=== PATIENT | female | born 1995 | race Caucasian/White ===

== ENCOUNTER 2020-07-10 11:04 | Outpatient (REF) | payer OTHER, SELFPAY | END 2020-07-10 11:05 | disposition home or self-care (01) | LOC: HO.LAB 11:04 | PROVIDERS: Visit Provider Internal Medicine | DX: Z20.828 Contact with and (suspected) exposure to other viral communicable diseases (principal) | CPT/HCPCS: 36415; 87635 ==

== ENCOUNTER 2020-09-24 07:55 | Outpatient (REF) | payer OTHER, SELFPAY | END 2020-09-24 07:56 | disposition home or self-care (01) | LOC: HO.LAB 07:55 | PROVIDERS: Visit Provider Internal Medicine | DX: Z20.828 Contact with and (suspected) exposure to other viral communicable diseases (principal) | CPT/HCPCS: C9803; U0003 ==

== ENCOUNTER 2021-01-22 10:15 | Emergency (ER) | payer OTHER, SELFPAY ==
--- NOTE | ~2021-01-22 | XR_ITS ---
EXAMINATION: XR CHEST CLINICAL INFORMATION: Cough, fever COMPARISON: Chest radiographs 10/11/2019, 10/28/2018 TECHNIQUE: Frontal view of the chest was obtained. FINDINGS: The lungs are clear. There is no airspace consolidation or groundglass opacity. Bronchovascular markings right infrahilar region are stable. The heart is normal in size. The vascularity is normal. The costophrenic sulci are clear. The mediastinal contours and bony structures are unremarkable. XR/XR chest 1V IMPRESSION: Unremarkable examination.
[2021-01-22 10:43] VITALS: BP 143/91; PULSE 94; RESP 20; TEMP 37.2; O2SAT 100; BMI 31.0
--- NOTE | 2021-01-22 13:18 | ED_ITS ---
HPI - General Adult General Chief complaint: General Medical <YU Marin - Last Filed: 01/22/21 14:14> Stated complaint: ASTHMA <YU Marin - Last Filed: 01/22/21 14:14> Time Seen by Provider: 01/22/21 12:15 <YU Marin - Last Filed: 01/22/21 14:14> Source: patient <YU Marin - Last Filed: 01/22/21 14:14> Mode of arrival: ambulatory <YU Marin - Last Filed: 01/22/21 14:14> Limitations: no limitations <YU Marin - Last Filed: 01/22/21 14:14> History of Present Illness HPI narrative: 25 y/o female with history of asthma who presents to the ED from home reporting dry cough, SOB, diarrhea, nasal congestion and headaches for the last 3 days. She has been using her albuterol inhaler with little improvement. She ran out of her nebulizer treatments. She denies chest pain or difficultly breathing. No fevers. No known COVID exposure but she works in a [employer]. <YU Marin - Last Filed: 01/22/21 14:14> MD complaint: COVID symptoms <YU Marin - Last Filed: 01/22/21 14:14> Onset (ago): day(s) (3) <YU Marin - Last Filed: 01/22/21 14:14> Location: head, chest and abdomen <YU Marin - Last Filed: 01/22/21 14:14> Severity: mild <YU Marin - Last Filed: 01/22/21 14:14> Quality: aching <YU Marin - Last Filed: 01/22/21 14:14> Pain Consistency: intermittent <YU Marin - Last Filed: 01/22/21 14:14> Relieving factors: rest <YU Marin - Last Filed: 01/22/21 14:14> Exacerbating factors: movement <YU Marin - Last Filed: 01/22/21 14:14> Associated symptoms: cough, headaches, loss of appetite, malaise and shortness of breath <YU Marin - Last Filed: 01/22/21 14:14> Related Data Home medications: Previous Rx's Medication Instructions Recorded albuterol sulfate 5 mg INHALATION Q6H PRN #30 ea 01/22/21 prednisone 40 mg PO DAILY #10 tab 01/22/21 <YU Marin - Last Filed: 01/22/21 14:14> Allergies/adverse reactions: Allergies Allergy/AdvReac Type Severity Reaction Status Date / Time No Known Allergies Allergy Unverified 06/21/20 16:43 <YU Marin - Last Filed: 01/22/21 14:14> Review of Systems Review of Systems: Constitutional: No Fever, + Chills ENT/Mouth: + sore throat, + Rhinorrhea, No Swallowing Difficulty Cardiovascular: No Chest Pain, + SOB, No Orthopnea, No Edema Respiratory: + Cough, No Sputum, No Wheezing, No dyspnea Gastrointestinal: +Nausea, No Vomiting, + Diarrhea, No abdominal Pain Genitourinary: No Dysuria, No Urinary Frequency, No Hematuria Musculoskeletal: No joint pain, + Myalgias Skin: No Skin Lesions, No rash Neuro: No Weakness, No Numbness, No Dizziness, + Headache Psych: + Anxiety/Panic, No Depression Heme/Lymph: No Bruising, No Lymphadenopathy <YU Marin - Last Filed: 01/22/21 14:14> [facility] Past Medical History Attestation statement: The following information was validated with the patient. <YU Marin - Last Filed: 01/22/21 14:14> Medical History: Medical History Asthma Hypothyroid <YU Marin - Last Filed: 01/22/21 14:14> Social History Social History: Social History Advance Directives: No Advance Directives Information Provided: No <YU Marin Last Filed: 01/22/21 14:14> Physical Exam Vital Signs: Vital Signs: Last Vital Signs Temp 99.0 F 01/22/21 10:43 Pulse 94 01/22/21 10:43 Resp 20 01/22/21 10:43 BP 143/91 H 01/22/21 10:43 Pulse Ox 100 01/22/21 10:43 Body Mass Index 31.0 Appearance: Alert. Oriented X3. No acute distress. Eyes: normal external inspection. ENT: Pharynx normal. Neck: Normal inspection. Neck supple. CVS: Normal heart rate and rhythm. Pulses normal. Respiratory: No respiratory distress. Breath sounds with end expiratory wheeze in right middle lung field as LLL. Speaking in full sentences, no accessory muscle use. Abdomen: Soft and nontender. +BS x4 Skin: Skin warm and dry. Normal skin color. Normal skin turgor. No rashes. Extremities: No lower extremity edema. Neuro: Oriented X 3. Nonfocal. Steady gait. <YU Marin - Last Filed: 01/22/21 14:14> Vital Signs: Last Vital Signs Temp 99.0 F 01/22/21 10:43 Pulse 94 01/22/21 10:43 Resp 20 01/22/21 10:43 BP 143/91 H 01/22/21 10:43 Pulse Ox 100 01/22/21 10:43 Body Mass Index 31.0 <Wilver Brewer MD - Last Filed: 01/30/21 08:40> Course Course Course Narrative: 25 yo female with history of asthma presents with 3 days of URI symptoms including dry cough, congestion, chills, & intermittent diarrhea. 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 No fevers, SOB, chest pain, WILLS or abd pain. VS are stable and she appears well. Exam w/ mild end expiratory wheezes throughout, speaking in full sentences. Will get Viral PCR and CXR. <YU Reynoso - Last Filed: 01/22/21 14:14> I have reviewed the chart <Wilver Brewer MD - Last Filed: 01/30/21 08:40> Reevaluation(s) Reevaluation #1: CXR negative. Viral PCR + for COVID. Patient counseled on diagnosis and management. Will give Rx for prednisone and albuterol nebs given wheezing on exam. She is no respiratory distress and no hypoxia noted. She is stable for discharge and was given clear instructions for warning signs/symptoms to return to the ED. <YU Marin - Last Filed: 01/22/21 14:14> Medical Decision Making Lab Data Labs: Lab Results 01/22/21 Range/Units 12:48 Coronavirus (PCR) POSITIVE A (Negative) Influenza Type A (PCR) NEGATIVE (Negative) Influenza Type B (PCR) NEGATIVE (Negative) RSV RNA Qual (PCR) NEGATIVE (Negative) <YU Marin - Last Filed: 01/22/21 14:14> Lab Results 01/22/21 Range/Units 12:48 Coronavirus (PCR) POSITIVE A (Negative) Influenza Type A (PCR) NEGATIVE (Negative) Influenza Type B (PCR) NEGATIVE (Negative) RSV RNA Qual (PCR) NEGATIVE (Negative) <Wilver Brewer MD - Last Filed: 01/30/21 08:40> Discharge Plan Discharge Clinical Impression: COVID-19 <YU Marin - Last Filed: 01/22/21 14:14> Patient Disposition: Home, Self-Care <YU Marin - Last Filed: 01/22/21 14:14> Instructions: COVID-19 (Coronavirus Disease 2019) (ED) <YU Marin - Last Filed: 01/22/21 14:14> Additional Instructions: You were found to be COVID-19 POSITIVE today. Your chest x-ray and oxygen levels were normal. Rest. Drink plenty of fluids. Recommend Imodium for diarrhea. Do not go out in public for the next 10 days. Take over the counter cold/flu medications as needed for your symptoms. Take Tylenol and/or Motrin as needed for fevers and body aches. Follow up with your doctor this week. If you shortness of breath worsens , if you develop difficulty breathing or any other concerning symptom come back to the ER for further evaluation. <YU Marin Last Filed: 01/22/21 14:14> Prescriptions: New prednisone 20 mg tablet 40 mg PO DAILY Qty: 10 RF: 0 albuterol sulfate 2.5 mg/0.5 mL solution for nebulization 5 mg inhalation Q6H PRN (Reason: shortness of breath or wheezing) Qty: 30 RF: 0 <YU Marin Last Filed: 01/22/21 14:14> Stand Alone Forms: Work/School Release <YU Marin - Last Filed: 01/22/21 14:14> Interventions: ED Discharge Assessment Last Done: 01/22/21 14:10 <YU Marin - Last Filed: 01/22/21 14:14> Discharge Date/Time: 01/22/21 14:10 <YU Marin - Last Filed: 01/22/21 14:14>
[2021-01-22 13:47] LABS: Influenza A PCR NEGATIVE (Negative); Influenza B PCR NEGATIVE (Negative); Resp Syncy Virus RNA Qual PCR NEGATIVE (Negative); SARS COV2 PCR INHOUSE POSITIVE (Negative)
== END 2021-01-22 14:10 | disposition home or self-care (01) ==
PROVIDERS: Physician Assistant; Emergency Provider Emergency Medicine; PCP Internal Medicine
DX: U07.1 COVID-19 (principal); J45.909 Unspecified asthma, uncomplicated
CPT/HCPCS: 0241U; 36415; 71045; 99283

== ENCOUNTER 2021-08-12 19:21 | Emergency (ER) | payer OTHER, SELFPAY ==
--- NOTE | ~2021-08-12 | XR_ITS ---
EXAMINATION: XR CHEST CLINICAL INFORMATION: Cough with wheezing COMPARISON: 01/22/2021 TECHNIQUE: 2 views of the chest were obtained. FINDINGS: No significant abnormality is noted involving the heart, lungs, mediastinum, bony thorax or soft tissues. XR/XR chest 2V IMPRESSION: Unremarkable examination.
[2021-08-12 19:41] VITALS: BP 147/91; PULSE 101; RESP 21; TEMP 36.3; O2SAT 98; BMI 31.9
--- NOTE | 2021-08-12 23:46 | ED.ASTHMA ---
HPI - Asthma General Chief Complaint: Asthma Stated Complaint: asthma Time Seen by Provider: 08/12/21 22:33 Source: patient Mode of arrival: ambulatory Limitations: no limitations History of Present Illness HPI Narrative: Patient presents to ED for asthma exacerbation. Patient states body aches and chills. 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 Patient states usually around this time she has asthma exacerbation every year. Related Data Previous Rx's Medication Instructions Recorded albuterol sulfate 2.5 mg/0.5 mL 5 mg INHALATION Q6H PRN #30 ea 01/22/21 solution for nebulization prednisone 20 mg tablet 40 mg PO DAILY #10 tab 01/22/21 benzonatate 100 mg capsule 100 mg PO TID PRN 5 Days #15 cap 08/13/21 prednisone 20 mg tablet 60 mg PO DAILY 5 Days #15 tab 08/13/21 Allergies Allergy/AdvReac Type Severity Reaction Status Date / Time No Known Allergies Allergy Verified 08/12/21 19:40 Review of Systems Review of Systems: Yes all other systems are reviewed and are negative Constitutional: Constitutional: Reports as per HPI, Reports no additional constitutional complaints, Reports body ache(s) and Reports chills Eyes: Eyes: Reports as per HPI and Reports no additional eye complaints ENT: Reports system reviewed and no additional complaints, except as documented Cardiovascular: Cardiovascular: Reports as per HPI and Reports no additional cardiovascular complaints Respiratory: Respiratory: Reports as per HPI, Reports no additional respiratory complaints and Reports wheezing Gastrointestinal: Gastrointestinal: Reports as per HPI and Reports no additional gastrointestinal complaints Musculoskeletal: Musculoskeletal: Reports no additional musculoskeletal complaints and Reports as per HPI Neurologic: Reports system reviewed and no additional complaints, except as documented and Reports as per HPI Psychiatric: Psychiatric: Reports no additional psychiatric complaints and Reports as per HPI Allergic/Immunologic: Allergic/Immunologic: Reports wheezing PMFSH Past Medical History Medical History Asthma Hypothyroid Social History Social History Advance Directives: No Advance Directives Information Provided: No Patient : No Physical Exam Vital Signs: Vital Signs: Last Vital Signs Temp 97.3 F 08/12/21 19:41 Pulse 91 08/13/21 00:31 Resp 16 08/13/21 00:19 BP 147/92 H 08/13/21 00:19 Pulse Ox 99 08/13/21 00:19 Body Mass Index 31.9 Const: General: cooperative, healthy appearing, comfortable, no acute distress, well developed, alert, awake and Physically active Orientation/consciousness: patient oriented x3 HENMT: Head: Yes normal to inspection, Yes No palpable skull fracture present, Yes normocephalic, Yes atraumatic, No abrasion, No Trotter's sign, No contusion, No cranial bruits, No hematoma, No laceration, No occipital foramen tenderness, No palpable skull fracture, No raccoon eyes, No scalp lesion, No scalp tenderness, No Temporal artery tenderness present and No periorbital ecchymosis Eyes: General: appearance normal, both eyes and all related structures Neck: Neck: Yes normal visual inspection, Yes full ROM, Yes no lymphadenopathy, Yes no meningeal signs, Yes trachea midline, Yes supple and No tender Chest: Chest palpation & inspection: normal inspection of the chest and normal palpation of entire chest wall Resp: Effort & Inspection: normal respiratory effort and able to speak in complete sentences Auscultation: wheezes expiratory wheezes (mild) Cardio: Jugular venous distension: no JVD Heart sounds: S1 normal heart sound present and S2 normal heart sound present GI: Inspection: Yes normal to inspection and No abdominal wall ecchymosis Palpation (GI): Soft to palpation, not firm, nontender, no guarding and not rigid : General: No CVA tenderness and Yes no CVA tenderness Back/Spine/Pelvis: Back: no CVA tenderness, No CVA tenderness and No back tenderness Skin: General skin exam: no rashes or lesions noted and elasticity normal Neuro: Other: Lower extremity negative for swelling, pitting edema, or calf tenderness. General: patient oriented x3, gait normal, no meningeal signs and CN's II-XI intact bilaterally Cranial nerves: Yes CN's II-XII intact bilaterally Extrem: General: Yes normal to inspection and Yes full ROM Psych: Appearance: grossly normal, well kempt and not disheveled Course Course Course Narrative: Patient have COVID swab and chest x-ray ordered. Reevaluation(s) Reevaluation #1: COVID swab RSV and influenza negative. Chest x-ray normal. Patient feels better after albuterol prednisone treatment. Patient to be discharged with steriods. Time: 01:24 MDM - Asthma MDM Narrative Medical decision making narrative: Asthma exacerbation clear urine Lab Data Labs: Lab Results 08/13/21 Range/Units 00:20 Influenza Type A (PCR) NEGATIVE (Negative) Influenza Type B (PCR) NEGATIVE (Negative) RSV RNA Qual (PCR) NEGATIVE (Negative) SARS-CoV-2 RNA (RT-PCR) NEGATIVE (Negative) Discharge Plan Discharge Clinical Impression: Asthma with acute exacerbation Patient Disposition: Home, Self-Care Instructions: Asthma (ED) Additional Instructions: Chest x-ray came back negative for pneumonia. The RSV, influenza, and COVID swab came back negative. Return to the ED for any chest pain, shortness of breath, swelling of lower extremities, calf. Mom including fingers, weakness, intractable fever, chills, chest pain inspiration, or any other concerning symptoms. Prescriptions: New prednisone 20 mg tablet 60 mg PO DAILY 5 Days Qty: 15 RF: 0 benzonatate 100 mg capsule 100 mg PO TID PRN (Reason: cough) 5 Days Qty: 15 RF: 0 No Action prednisone 20 mg tablet 40 mg PO DAILY Qty: 10 RF: 0 albuterol sulfate 2.5 mg/0.5 mL solution for nebulization 5 mg inhalation Q6H PRN (Reason: shortness of breath or wheezing) Qty: 30 RF: 0 Stand Alone Forms: Work/School Release Print Language: Amharic
[2021-08-13 00:19] VITALS: BP 147/92; PULSE 88; RESP 16; O2SAT 99
[2021-08-13] MEDS: predniSONE 20 MG TABLET 60 MG PO (00:25)
[2021-08-13 00:31] VITALS: PULSE 91; O2SAT 98
[2021-08-13] MEDS: Albuterol/Iprat 2.5/0.5MG 3 ML AMPUL.NEB INHALE (00:31)
[2021-08-13 01:03] LABS: Influenza A PCR NEGATIVE (Negative); Influenza B PCR NEGATIVE (Negative); Resp Syncy Virus RNA Qual PCR NEGATIVE (Negative); SARS COV2 PCR INHOUSE NEGATIVE (Negative)
--- NOTE | 2021-08-13 01:53 | PC.NURSE ---
Pt alert and oriented x4, calm and cooperative. Pt denies pain. Pt states SOB has improved. Wheezing improved. pt tolerated duoneb treatment well. No IV in place. Vitals stable. Pt ambulated out to private car, steady on her feet.
[2021-08-13 01:55] VITALS: BP 126/74; PULSE 89; RESP 18; TEMP 37; O2SAT 95
== END 2021-08-13 01:56 | disposition home or self-care (01) ==
PROVIDERS: Physician Assistant; Emergency Provider Emergency Medicine
DX: J45.901 Unspecified asthma with (acute) exacerbation (principal); Z20.822 Contact with and (suspected) exposure to COVID-19; Z79.899 Other long term (current) drug therapy
CPT/HCPCS: 0241U; 36415; 71046; 94640; 99283

== ENCOUNTER 2021-10-03 08:02 | Emergency (ER) | payer OTHER, SELFPAY ==
--- NOTE | ~2021-10-03 | XR_ITS ---
EXAMINATION: XR CHEST CLINICAL INFORMATION: Shortness of breath COMPARISON: August 12, 2021 TECHNIQUE: 2 views of the chest were obtained. FINDINGS: No significant abnormality is noted involving the heart, lungs, mediastinum, bony thorax or soft tissues. XR/XR chest 2V IMPRESSION: No acute disease.
--- NOTE | 2021-10-03 08:30 | ED.URI ---
HPI - URI/Sore Throat General Chief Complaint: Upper Respiratory Symptoms Stated Complaint: body aches diff breathing Time Seen by Provider: 10/03/21 08:05 Source: patient Mode of arrival: ambulatory Limitations: no limitations History of Present Illness HPI Narrative: unvaccinated COVID back in December elicited complaint: cough and rhinorrhea Pertinent past history: asthma Onset (ago): day(s) (3) Consistency: constant Severity: moderate Description of mucous: clear Able to tolerate fluids by mouth: Yes Exacerbating factors: other (cough) Relieving factors: nothing Context: sick contacts (exposed to COVID) Associated symptoms: chills, myalgias, rhinorrhea, cough and shortness of breath Treatments prior to arrival: none Related Data Previous Rx's Medication Instructions Recorded albuterol sulfate 2.5 mg/0.5 mL 5 mg INHALATION Q6H PRN #30 ea 01/22/21 solution for nebulization prednisone 20 mg tablet 40 mg PO DAILY #10 tab 01/22/21 benzonatate 100 mg capsule 100 mg PO TID PRN 5 Days #15 cap 08/13/21 prednisone 20 mg tablet 60 mg PO DAILY 5 Days #15 tab 08/13/21 albuterol sulfate 2.5 mg (3 mL) INHALATION Q4-6H PRN 10/03/21 #75 ml dexamethasone 6 mg tablet 6 mg PO DAILY 7 Days #7 tab 10/03/21 Allergies Allergy/AdvReac Type Severity Reaction Status Date / Time No Known Allergies Allergy Verified 08/12/21 19:40 Review of Systems Review of Systems: Constitutional : No Fever, pos Chills ENT/Mouth : No Hoarseness, No sore throat, No Rhinorrhea Eyes: No Redness, No Discharge, No Vision Changes Cardiovascular : No Chest Pain, positive SOB, no Dyspnea on Exertion, No Edema Respiratory : positive Cough, No Sputum, positive Wheezing, Gastrointestinal : No Nausea, No Vomiting, No Diarrhea, No abdominal Pain Genitourinary : No Dysuria, No Hematuria Musculoskeletal : No joint pain, No Myalgias Skin : No rash Neuro : No Weakness, No Numbness, No Headache Psych : No anxiety, depression Heme/Lymph: No Bruising, No Bleeding Endocrine : No Polyuria, No Polydipsia All other systems reviewed and are negative PMFSH Past Medical History Attestation statement: The following information was validated with the patient. Medical History Asthma Hypothyroid Social History Social History (Updated 10/03/21 @ 08:52 by Ama Owens DO) Patient Tobacco Use Status: Current everyday Tobacco user Advance Directives: No Advance Directives Information Provided: No Patient : No Physical Exam Vital Signs: Vital Signs: Last Vital Signs Temp 98 F 10/03/21 08:51 Pulse 86 10/03/21 08:55 Resp 20 10/03/21 08:55 Pulse Ox 99 10/03/21 08:51 BMI result Body Mass Index 30.9 Appearance: Alert. Oriented X3. No acute distress. Eyes: Pupils equal, round and reactive to light. ENT: Pharynx normal. Neck: Normal inspection. Neck supple. CVS: Normal heart rate and rhythm. Pulses normal. Respiratory: No respiratory distress. Breath sounds faint end exp wheezes noted bilaterally Abdomen: Soft and nontender. Skin: Skin warm and dry. Normal skin color. Normal skin turgor. Extremities: No lower extremity edema. No calf ttp Neuro: Oriented X 3. No motor deficit. No sensory deficit. Course Course Course Narrative: no hypoxia - stable for DC 99% on RA after neb given referral form for [facility] MDM - URI/Sore Throat MDM Narrative Medical decision making narrative: 26 yo female with hx of asthma, unvaccinated COVID back in December sick for a few days - ran out of her albuterol liquid. No resp distress. She was exposed to COVID at this time xray and covid swab ordered - 5mg neb ordered, PO prednisone ordered. Dispo per results and findings. Lab Data Labs: Lab Results 10/03/21 Range/Units 08:53 COVID-19 (LEXII) Positive A (Negative) COVID-19 Clin Com See Note Discharge Plan Discharge Clinical Impression: COVID-19 Patient Disposition: Home, Self-Care Instructions: COVID-19 (Coronavirus Disease 2019) (ED) Additional Instructions: return to ED for any worsening symptoms or concerns if you are so short of breath and cannot walk to your bathroom please return please email the [facility] Prescriptions: New albuterol sulfate 2.5 mg /3 mL (0.083 %) solution for nebulization 2.5 mg inhalation Q4-6H PRN (Reason: bronchospasm) Qty: 75 RF: 0 dexamethasone 6 mg tablet 6 mg PO DAILY 7 Days Qty: 7 RF: 0 No Action prednisone 20 mg tablet 40 mg PO DAILY Qty: 10 RF: 0 albuterol sulfate 2.5 mg/0.5 mL solution for nebulization 5 mg inhalation Q6H PRN (Reason: shortness of breath or wheezing) Qty: 30 RF: 0 prednisone 20 mg tablet 60 mg PO DAILY 5 Days Qty: 15 RF: 0 benzonatate 100 mg capsule 100 mg PO TID PRN (Reason: cough) 5 Days Qty: 15 RF: 0 Stand Alone Forms: Work/School Release
[2021-10-03] MEDS: Albuterol Sulfate (0.083%) 2.5 MG/3 ML VIAL.NEB 5 MG INHALE (08:49)
[2021-10-03 08:51] VITALS: PULSE 91; RESP 19; TEMP 36.6; O2SAT 99; BMI 30.9
[2021-10-03 08:55] VITALS: PULSE 86; RESP 20; O2SAT 100
[2021-10-03 09:08] LABS: COVID-19 Test Positive (Negative)
[2021-10-03 09:19] VITALS: O2SAT 99
[2021-10-03 09:48] VITALS: PULSE 108; RESP 19
== END 2021-10-03 09:48 | disposition home or self-care (01) ==
PROVIDERS: Physician Assistant; Emergency Provider Emergency Medicine; PCP Internal Medicine
DX: U07.1 COVID-19 (principal); M79.10 Myalgia, unspecified site; R05.9 Cough, unspecified; R06.02 Shortness of breath; Z79.899 Other long term (current) drug therapy
CPT/HCPCS: 36415; 71046; 87635; 94640; 94644; 99283; 99284

== ENCOUNTER 2023-02-23 14:33 | Outpatient (REF) | payer OTHER, SELFPAY ==
[2023-02-24 06:32] LABS: CT PCR NOT DETECTED (Not Detect.); NG PCR NOT DETECTED (Not Detect.)
[2023-02-24 08:57] LABS: BV Int Neg Control Negative (Negative); BV Int Pos Control Positive (Positive)
== END 2023-02-23 14:34 | disposition home or self-care (01) ==
LOC: HO.LNP 14:33
PROVIDERS: PCP Internal Medicine; Visit Provider Advanced Practice Midwife
DX: Z01.419 Encounter for gynecological examination (general) (routine) without abnormal findings (principal); R19.7 Diarrhea, unspecified; N94.6 Dysmenorrhea, unspecified; N92.0 Excessive and frequent menstruation with regular cycle; L68.0 Hirsutism; L70.9 Acne, unspecified; Z87.42 Personal history of other diseases of the female genital tract; Z78.9 Other specified health status; Z79.899 Other long term (current) drug therapy
CPT/HCPCS: 0353U; 87480; 87510; 87660; 88142; 99202

== ENCOUNTER 2023-02-25 15:28 | Outpatient (REF) | payer OTHER, SELFPAY ==
[2023-02-25 15:57] LABS: Hematocrit 36.2 % (37.0-47.0); Hemoglobin 11.4 g/dl (12.0-16.0); Mean Corpuscular HGB Conc 31.5 g/dl (31.0-35.0); Mean Corpuscular Hemoglobin 24.9 pg (27.0-33.0); Mean Corpuscular Volume 79.2 fL (80.0-98.0); Mean Platelet Volume 9.4 fL (9.4-12.3); Platelet Count 378 X10*3/uL (160-400); Red Blood Count 4.57 X10*6/uL (4.20-5.50); Red Cell Distribution Width 14.2 % (11.0-16.0); White Blood Count 9.3 X10*3/uL (4.8-10.8)
[2023-02-25 16:09] LABS: Estimated Average Glucose 108 mg/dL; Hemoglobin A1c % 5.4 %
[2023-02-25 16:39] LABS: Thyroid Stimulating Hormone 6.06 uIU/mL (0.32-4.0)
[2023-02-27 09:18] LABS: DHEA Sulfate 180 mcg/dL (14-349); Sex Hormone Binding Globulin 37 nmol/L (17-124)
[2023-03-05 21:08] LABS: Testosterone, Free 2.3 pg/mL (0.1-6.4); Testosterone, Total 18 ng/dL (2-45)
== END 2023-02-25 15:29 | disposition home or self-care (01) ==
LOC: HO.LAB 15:28
PROVIDERS: Visit Provider Advanced Practice Midwife
DX: Z30.09 Encounter for other general counseling and advice on contraception (principal); L68.0 Hirsutism; L70.9 Acne, unspecified; N92.0 Excessive and frequent menstruation with regular cycle; N94.6 Dysmenorrhea, unspecified; Z87.42 Personal history of other diseases of the female genital tract
CPT/HCPCS: 36415; 82627; 83002; 83036; 84270; 84402; 84403; 84443; 85027

== ENCOUNTER → 2023-02-27 10:50 | Outpatient (BNVA) | payer OTHER, SELFPAY | PROVIDERS: PCP Internal Medicine; Visit Provider Advanced Practice Midwife ==

== ENCOUNTER 2023-03-12 16:21 | Outpatient (REF) | payer OTHER, SELFPAY ==
--- NOTE | ~2023-03-12 | US_ITS ---
EXAMINATION: US PELVIS CLINICAL INFORMATION: Excessive and frequent menstruation COMPARISON: None available. TECHNIQUE: Ultrasound of the pelvis is performed using both transabdominal and transvaginal transducers along with Doppler. Transvaginal imaging is performed due to inadequate visualization transabdominally. FINDINGS: The uterus is anteverted and measures 8.9 x 3.7 x 4.7 cm in dimension. No focal uterine lesion. Endometrial thickness is normal measuring 0.5 cm. The ovaries are normal. The right ovary measures 3.1 x 1.6 x 2.1 cm. The left ovary measures 4.3 x 2.3 x 2.8 cm. There is a 2.1 x 1.6 x 1.7 cm simple cyst in the left ovary. According to best practice criteria, given patient age and size of cyst, no imaging follow-up recommended. No ascites.. US/US pelvic and transvaginal IMPRESSION: Unremarkable exam.
== END 2023-03-12 16:22 | disposition home or self-care (01) ==
LOC: HO.US 16:21
PROVIDERS: Visit Provider Advanced Practice Midwife
DX: L68.0 Hirsutism (principal); L70.9 Acne, unspecified; N92.0 Excessive and frequent menstruation with regular cycle; N94.6 Dysmenorrhea, unspecified; Z87.42 Personal history of other diseases of the female genital tract
CPT/HCPCS: 76830; 76856

== ENCOUNTER → 2023-04-09 14:19 | Outpatient (BNVA) | payer OTHER, SELFPAY | PROVIDERS: PCP Internal Medicine; Visit Provider Advanced Practice Midwife | DX: N92.0 Excessive and frequent menstruation with regular cycle (principal); L68.0 Hirsutism; L70.9 Acne, unspecified; E03.9 Hypothyroidism, unspecified; E66.9 Obesity, unspecified; Z87.42 Personal history of other diseases of the female genital tract | CPT/HCPCS: 99212 ==

== ENCOUNTER 2024-11-22 13:32 | Outpatient (AMB) | payer OTHER, SELFPAY ==
--- NOTE | 2024-11-22 13:34 | MHC.OFFVIS ---
Vital Signs 11/22/24 13:35 Height 5 ft 4 in Weight 192 lb BMI 33.0 BP 118/70 Intake Visit Reasons: vag lump/re current yeast infections Video Production Coordinator Required: No Video Production Coordinator Services: Video Production Coordinator Present Information Interpreted: clinical only Slip Injector And Applicator: Slip Injector And Applicator Present Allergies No Known Allergies Allergy (Verified 11/22/24 13:39) Medication List - Last Reconciled 11/22/24 by Betsey Quan CNM albuterol sulfate 5 mg inhalation Q6H PRN albuterol sulfate 2.5 mg (3 mL) inhalation Q4-6H PRN doxycycline hyclate 50 mg PO DAILY levothyroxine (Tirosint) 150 mcg PO DAILY Is last menstrual period known: Yes Last menstrual period: 11/21/24 HPI HPI vag lump/re current yeast infections: Details: Patient is concerned because she felt a vaginal lump she felt it more on the left side she is right-handed. Today she has cramping severely because of her menses she does get severe cramps she takes 800 mg ibuprofen that she has from her doctor in sometimes she takes more than the prescribed amount. She does use a heating pad at home. She also has used her mother's lidocaine patch. Her periods are very heavy she used to be on the NuvaRing and loves that but could not afford it when she lost insurance insurance did not cover. She has a long history of acne she is hypothyroid and is on replacement. She has also been dealing with recurrent bacterial vaginosis and yeast alternatively or concurrently that have been diagnosed in treated through the providers at [facility]. They even worked her up for diabetes because of the recurrences of yeast and she said her hemoglobin A1 6 which was just checked yesterday was 5.6. She also just saw her primary care provider yesterday and has plans to repeat that in 3 months. She has been very frustrated by the recurrent yeast and BV she is not currently sexually active because of the malodor. [facility] Medical History Anemia Hypothyroid Asthma Surgical History No pertinent past surgical history Family History Mother Breast cancer Hypertension Maternal Grandmother Hypertension High cholesterol Social History Household Members: None Housing: House Alcohol intake: current Alcohol intake frequency: a few times a week Alcohol type: hard liquor Patient Tobacco Use Status: Never used Tobacco Substance Use Type: Marijuana Female Reproductive History Menstrual Age of Menarche: 7 Date of last menstrual period: 11/21/24 control method: none Total pregnancies: 0 Date of last pap smear: 93 (negativr) Physical Exam Vital Signs: Last Vital Signs BP 118/70 11/22/24 13:35 BMI result Body Mass Index 33.0 Other: Exam patient does heavy menses vulva does not appear especially inflamed but that could be masked by the menses which appear normal. Cervix nulliparous pink smooth healthy appearing long close thick mobile nontender uterus anteverted mobile nontender good tone with Kegel External Female Exam: normal external appearance Speculum Exam - Vagina: normal appearance of the vagina and normal vaginal discharge Speculum Exam - Cervix: normal appearance of the cervix Bimanual exam- vagina & uterus: normal bimanual exam, uterine size normal, consistency normal, uterine mobility normal, uterine shape normal and non-tender Bimanual Exam- Adnexa, other: normal adnexae, no masses and No adnexal tenderness Assessment & Plan Assessment & Plan (1) Menorrhagia with regular cycle: Code(s): N92.0 - Excessive and frequent menstruation with regular cycle Category: Medical (2) Dysmenorrhea, unspecified: Code(s): N94.6 - Dysmenorrhea, unspecified Category: Medical (3) History of irregular menstrual cycles: Code(s): Z87.42 - Personal history of other diseases of the female genital tract Category: Medical (4) control counseling: Code(s): Z30.09 - Encounter for other general counseling and advice on contraception Category: Medical (5) Cervical cancer screening: Comment: 02/23/2023 Pap is negative Code(s): Z12.4 - Encounter for screening for malignant neoplasm of cervix Category: Medical (6) Hypothyroid: Comment: History of iodine radiation, on replacement Code(s): E03.9 - Hypothyroidism, unspecified Category: Medical (7) Obesity (BMI 30.0-34.9): Code(s): E66.9 - Obesity, unspecified Category: Medical (8) Acne: Code(s): L70.9 - Acne, unspecified Category: Medical (9) Hirsutism: Code(s): L68.0 - Hirsutism Category: Medical (10) Yeast infection of the vagina: Code(s): B37.31 - Acute candidiasis of vulva and vagina Category: Medical (11) Counseling for initiation of control method: Comment: Patient loves being on the NuvaRing had to stop for lack insurance. It helped her periods we will restart with this menses RTC 3 months for blood pressure check, if BP elevated consider Mirena. Code(s): Z30.09 - Encounter for other general counseling and advice on contraception Category: Medical Plan Discussed the confluence of all her symptoms at this visit. As regards her heavy menses dysmenorrhea she did feel better back when she was on control and she thinks her insurance at this time would cover going back on the NuvaRing and that is what she would like to do she is not sexually active at the moment I reviewed with her how to use it in she remembered and she had no problem with that and likes that method I did tell her that if her blood pressure is elevated at the next visit then we will be seriously talking that is switching to a Mirena IU S as it would help her with her menses as well as avoid any issues with her blood pressure. Childbearing is not in her near future.. Reviewed that she and I had discussed the possibility of PCOS because of her hirsute is Um and acne and in the past having had irregular periods but her periods have been regular lately accept for some spotting that has been occurring in between but her periods are also longer and heavier cramp ear which are very problematic. We will restart on the NuvaRing as above Testing was done with the swabs for gonorrhea chlamydia trichomoniasis bacterial vaginosis and yeast. Blood may obscure things nothing was visible other than heavy menses today. I invited her to look at her cervix and to check her vaginal introitus to show her normal hymenal remnants no abnormal bumps. One hypothesis is that using her right hand and feeling inside she may have been actually feeling her cervix as the bump at an angle. I suggested stick on heating pads for use with her menses and cautioned against over use of the ibuprofen. I will send a prescription for the NuvaRing and also for Diflucan which she can use when she has symptoms she volunteered that usually when she has her menses there is less of the symptoms yeast infection and that is also very common talked about that I did cautioned against over use of pads and panty liners and suggested she return to tampon use and consider menstrual cup as well. 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 3 months for NuvaRing yeast dysmenorrhea symptom check Orders: Orders CT NG by PCR Today N89.8 - Other specified noninflammatory disorders of vagina, Z20.2 - Contact with and (suspected) exposure to infections with a predominantly sexual mode of transmission Bacterial Vaginosis Panel Today N89.8 - Other specified noninflammatory disorders of vagina Medications: New etonogestrel-ethinyl estradiol 0.12-0.015 mg/[address] for 3 weeks of a 4-week cycle 1 vag ring vaginal Q4W 3 ea 4RF fluconazole may repeat second dose 72 hrs after first dose if symptoms persist 150 mg PO Q3D 2 doses 2 tabs 1RF Coding Level of Care Code Est Pt Level 3 (26326) Diagnoses Menorrhagia with regular cycle N92.0 Dysmenorrhea, unspecified N94.6 History of irregular menstrual cycles Z87.42 control counseling Z30.09 Cervical cancer screening Z12.4 Hypothyroid E03.9 Obesity (BMI 30.0-34.9) E66.9 Acne L70.9 Hirsutism L68.0 Yeast infection of the vagina B37.31 Counseling for initiation of control method Z30.09 Time Spent (min) 40 Comment 90% spent reviewing patient's history labs symptoms physical findings and coming up w plan
[2024-11-22 13:35] VITALS: BP 118/70; BMI 33.0
--- OUTSIDE RECORDS SUMMARY | 2024-11-22 14:28 | XMS_ITS | Clinical Summary ---
Author Organization [facility] Address [address] [place] [address] Care Team Providers Care Car Usher Name Role Phone Jeramy Bernal Primary Care Provid er Allergies No known active allergies Medications Medication Sig Dispensed Refills Start Date End Date Status Levothyroxine Sodium 112 MCG CAPSIndications:jarad e 1 caps daily Thu thru Sat, take 2 caps on Thursday Take 137 mcg by mouth. 0 Active albuterol (PROVENTIL) (2.5 MG/3ML) 0.083% nebulizer solution Take 3 mL (2.5 mg total) by nebulization as needed for wheezing. 0 Active ibuprofen 800 MG tablet Take 1 tablet (800 mg total) by mouth every 8 (eight) hours as needed for pain. 0 Active OXcarbazepine (TRILEPTAL) 300 MG tablet Take 1 tablet (300 mg total) by mouth 2 (two) times a day. 0 Active fluticasone-salmete rol (ADVAIR HFA) 230-21 MCG/ACT inhaler Inhale 2 puffs into the lungs 2 (two) times a day. 0 Active ferrous sulfate 324 MG TBEC Take 1 tablet (324 mg total) by mouth every morning with breakfast. 0 Active sertraline (ZOLOFT) 50 MG tablet Take 1 tablet (50 mg total) by mouth daily. 0 Active doxycycline (ADOXA) 50 MG tablet Take 1 tablet (50 mg total) by mouth 2 (two) times a day. 0 Active LORazepam (ATIVAN) 0.5 MG tablet Take 1 tablet (0.5 mg total) by mouth every 6 (six) hours as needed. 0 Active Active Problems Problem Noted Date Diagnosed Date Iron deficiency anemia due to chronic blood loss 11/01/2020 Intermenstrual bleeding 01/25/2018 Overview: Last Assessment & Plan: Counseled pt that this can be related to stress or infection. No evidence of infection today, but will send GC/CT screening. Also explained can be related to intracavitary lesion such as polyp which is most often benign. Recommended US. In follow up, will consider OCP, Nuva ring, Mirena. Discussed these options with patient. She will consider in meantime. TSH recently checked and stable over several months, thus not likely related. Depression 07/20/2014 Overview: Overview: Suicide attempt 2008/ Asthma 06/22/2014 H/O Graves' disease 06/22/2014 Overview: Overview: Was given radioactive iodine in 2012. Hypercholesterolemia 06/22/2014 Hypothyroidism 06/22/2014 Family History Medical History Relation Name Comments Cancer Mother Relation Name Status Comments Mother Social History Tobacco Use Types Packs/Day Years Used Date Smoking Tobacco: Former Smokeless Tobacco: Never Alcohol Use Standard Drinks/Week Comments Yes 0 (1 standard drink = 0.6 oz pur e alcohol) Sex and Gender Information Value Date Recorded Sex Assigned at Not on file Gender Identity Not on file Sexual Orientation Not on file Job Start Date Occupation Industry Not on file Not on file Not on file Last Filed Vital Signs Vital Sign Reading Time Taken Comments Blood Pressure 122/66 02/11/2024 1:20 PM EDT Pulse 89 06/30/2023 2:47 PM EDT Temperature 36.6 ??C (97.8 ??F) 02/11/2024 1:20 PM ED T Respiratory Rate 18 06/30/2023 2:47 PM EDT Oxygen Saturation 100% 02/11/2024 1:20 PM EDT Inhaled Oxygen Concentration - - Weight 88.5 kg (195 lb) 02/11/2024 1:20 PM EDT Height 162.6 cm (5' 4 ) 02/11/2024 1:20 PM EDT Body Mass Index 33.47 02/11/2024 1:20 PM EDT Plan of Treatment Health Maintenance Due Date Last Done Comments Hepatitis C Screening 1993 COVID-19 Vaccine (#1) 1993 Depression Screening 2005 BMI Counseling 2011 Preventative Health Evaluation 2011 Cervical Cancer Screening (Pap Smear) 2014 Pneumococcal Vaccine (2 of 2 - PCV) 06/22/2015 06/22/2014 DTap / Tdap / Td (7 - Td or Tdap) 07/26/2020 07/26/2010, 12/02/2005, 05/29/1999, Additional history exists Influenza Vaccine (#1) 2024 , 10/19/2007, 11/13/2004 Hepatitis B Vaccines Completed 1993, 1993, 1993 RSV Ped < 20 months Aged Out No longe r eligible based on patient's age to complete this topic Insurance Payer Benefit Plan / Group Subscriber ID Effective Dates Phone Address [facility] [id number] 2023-Present [address] [facility] [address] [place] [address] HMO Care Teams Car Usher Relationship Specialty Start Date End Date Jeramy Bernal MBBS [address] [place] [address] PCP - General Internal Medicine 03/25/23
--- OUTSIDE RECORDS SUMMARY | 2024-11-22 14:28 | XMS_ITS | Encounter Summary ---
Author Organization [facility] Address [address] [place] [address] Care Team Providers Care Patternmaker Plaster Name Role Phone Jeramy Bernal MD Primary Care Provider Encounter Details Date Type Department Care Team (Late st Contact Info) Description 10/10/2024 Telephone Adult Medicine [facility] [address] [place] [address] Jeramy Bernal MD [address] [place] [address] Social History Tobacco Use Types Packs/Day Years Used Date Smoking Tobacco: Former Smokeless Tobacco: Never Alcohol Use Standard Drinks/Week Comments Yes 0 (1 standard drink = 0.6 oz pur e alcohol) Comments No Sex and Gender Information Value Date Recorded Sex Assigned at Female 11/07/2022 10:42 AM EST Legal Sex Female 4:33 AM EST Gender Identity Female 11/07/2022 10:42 AM EST Sexual Orientation Straight 11/07/2022 10 :42 AM EST documented as of this encounter Progress Notes * Suleiman Barcenas - 10/10/2024 4:56 PM EST Patient was seen for an appt today, her insurance did not properly process becayse of the holiday, she states it will be processed tomorrow if there are any concerns. She spoke to [facility] documented in this encounter Plan of Treatment Upcoming Encounters Date Type Department Care Team (Late st Contact Info) Description 11/25/2024 9:45 AM EST Consult General Surgery - [place] [address] [phone] Chip Aguillon MD [address] [address] 08/17/2025 3:00 PM EST Office Visit [facility] Hematology Oncology [address] [place] [phone] Yulia Gusman PA [address] [place] [address] documented as of this encounter Visit Diagnoses Not on filedocumented in this encounter Care Teams Patternmaker Plaster Relationship Specialty Start Date End Date Jeramy Bernal MD [address] [place] [address] PCP - General Internal Medicine 06/27/22 documented as of this encounter
--- OUTSIDE RECORDS SUMMARY | 2024-11-22 14:28 | XMS_ITS | Encounter Summary ---
Author Organization [employer] Address [address] [place] [address] Care Team Providers Care Surfacing Technician Name Role Phone Jeramy Bernal MD Primary Care Provider Reason for Visit * Reason Comments Follow-up Pre diabetic concern Encounter Details Date Type Department Care Team ([facility] st Contact Info) Description 11/21/2024 12:00 PM EST Office Visit Adult Medicine [facility] [address] [place] [address] Jeramy Bernal MD [address] [place] [address] Impaired fasting blood sugar (Primary Dx); Elevated blood pressure reading; Screening for lipid disorders; Hypothyroidism, unspecified type; Moderate persistent asthma, unspecified whether complicated Social History Tobacco Use Types Packs/Day Years Used Date Smoking Tobacco: Former Smokeless Tobacco: Never Tobacco Cessation:Counseling Given: Not Answered Alcohol Use Standard Drinks/Week Comments Yes 0 (1 standard drink = 0.6 oz pur e alcohol) Housing Instability Answer Date Recorde d Are you worried that in the next 2 months you may not have stable housing? No 11/15/2024 Food Access & Nutrition Answer Date Rec orded Do you have access to a vari ety of food including fruits and vegetables? Yes 11/15/2024 Health Literacy Answer Date Recorded How often do you need to hav e someone help you when you read instructions, pamphlets, or other written material from your doctor or pharmacy? Never 11/15/2024 Caregiver: How often do you need to have someone help you when you read instructions, pamphlets, or other written material from your doctor or pharmacy? Not on file 11/15/2024 Financial Risk Answer Date Recorded How hard is it for you to pa y for the very basics like food, housing, medical care, and air conditioning / heating? Somewhat hard 11/15/2024 Transportation Answer Date Recorded Has the lack of transportati on kept you from meetings, work, or from getting things needed for daily living? No Has the lack of transportati on kept you from medical appointments or from getting medications? No 11/15/2024 Social Isolation Answer Date Recorded How often do you feel lonely or isolated from those around you? Sometimes 11/15/2024 Food Risk Answer Date Recorded Within the past 12 months we worried whether our food would run out before we got money to buy more. Never true 11/15/2024 Within the past 12 months th e food we bought just didn't last and we didn't have money to get more. Never true 11/15/2024 Dependent Care Answer Date Recorded Do you need help finding or paying for care for your loved ones. For example, special needs child caregiver or elderly care for an older adult? No 11/15/2024 Education Answer Date Recorded Do you think completing more education or training, like finishing a GED, going to college, or learning a trade, would be helpful for you? N/A 11/15/2024 Employment and Income Answer Date Recor ded During the last four weeks, have you been actively looking for work? No 11/15/2024 Living Situation Answer Date Recorded What is your living situation? 0 11/15/2024 Comments No Sex and Gender Information Value Date Recorded Sex Assigned at Female 11/07/2022 10:42 AM EST Legal Sex Female 4:33 AM EST Gender Identity Female 11/07/2022 10:42 AM EST Sexual Orientation Straight 11/07/2022 10 :42 AM EST documented as of this encounter Last Filed Vital Signs Vital Sign Reading Time Taken Comments Blood Pressure 151/78 11/21/2024 12:10 PM EST provider will be recheck Pulse 85 11/21/2024 12:10 PM EST Temperature 36.3 ??C (97.3 ??F) 11/21/2024 1 2:10 PM EST Respiratory Rate 16 11/21/2024 12:1 0 PM EST Oxygen Saturation - - Inhaled Oxygen Concentration - - Weight 87.5 kg (192 lb 12.8 oz) 11/21/2024 12:10 PM EST Height 162.6 cm (5' 4 ) 11/21/2024 12:1 0 PM EST Body Mass Index 33.09 11/21/2024 12:10 PM EST documented in this encounter Ordered Prescriptions Prescription Sig Dispense Quantity Refills Last Filled Start Date End Date fluticasone propion-salmeteroL (ADVAIR HFA) 230-21 mcg/actuation inhaler Inhale 2 puffs by mouth 2 (two) times a day. Rinse mouth with water after use to reduce aftertaste and incidence of candidiasis. Do not swallow. 1 each 2 11/21/2024 documented in this encounter Progress Notes * Jeramy Bernal MD - 11/21/2024 12:00 PM EST SUBJECTIVE: Macie Cannon is a 29 y.o. female who presents today for Chief Complaint Patient presents with Follow-up Pre diabetic concern HPI: Patient presenting with concern for impaired fasting blood sugar. She says she had testing done 3 months ago at urgent care in which her blood sugar was elevated. Does not remember the exact values. She also states she is having menstrual cramps and took ibuprofen just before coming to the office. Current Meds: Current Outpatient Medications: albuterol 2.5 mg /3 mL (0.083 %) nebulizer solution, Take 3 mL (2.5 mg total) by nebulization every6 (six) hours if needed for wheezing., Disp: 75 mL, Rfl: 0 albuterol HFA (PROAIR HFA ; PROVENTIL HFA ; VENTOLIN HFA) 90 mcg/actuation inhaler, Inhale 2 puffs by mouth every 6 (six) hours if needed for wheezing or shortness of breath (COUGH)., Disp: 8.5 g, Rfl: 0 fluticasone propion-salmeteroL (ADVAIR HFA) 230-21 mcg/actuation inhaler, Inhale 2 puffs by mouth 2(two) times a day. Rinse mouth with water after use to reduce aftertaste and incidence of candidiasis. Do not swallow., Disp: 1 each, Rfl: 2 levothyroxine sodium (TIROSINT) 112 mcg capsule, Take 137 mcg by mouth., Disp: , Rfl: doxycycline (VIBRAMYCIN) 50 mg capsule, Take 1 capsule (50 mg total) by mouth 1 (one) time each day., Disp: , Rfl: Allergies: No Known Allergies Immunizations: There is no immunization history on file for this patient. Active Problems: Patient Active Problem List Diagnosis Depression Asthma Hypercholesterolemia Hypothyroidism Intermenstrual bleeding Iron deficiency anemia due to chronic blood loss HISTORY: Past Medical History: Diagnosis Date Asthma 06/22/2014 DX:Asthma Depression 07/20/2014 DX:Depression; COMMENT: Suicide attempt Family history of breast cancer in mother 06/22/2014 DX:Family history of breast cancer in mother; COMMENT: Monthly breast self-exam Family history of breast cancer in mother 11/03/2014 DX:Family history of breast cancer in mother Graves' ophthalmopathy 10/05/2014 DX:Graves' ophthalmopathy H/O Graves' disease 06/22/2014 DX:H/O Graves' disease; COMMENT: Was given radioactive iodine in 2012. Hypercholesterolemia 06/22/2014 DX:Hypercholesterolemia Hypothyroidism 06/22/2014 DX:Hypothyroidism; COMMENT: [facility] Past Surgical History: Procedure Laterality Date OTHER SURGICAL HISTORY PROCEDURE: DENIES PREVIOUS SURGERY Family History Problem Relation Name Age of Onset Other (Other: Other) Father no information Thyroid disease Aunt maternal aunt Other (Other: heart disease) Maternal Grandmother arthritis, HTN Other (Other: heart disease) Maternal Grandfather of head injury in his 40s Other (Other: edema) Paternal Grandmother Other (Other: Other) Paternal Grandfather Social History Socioeconomic History Marital status: Single Spouse name: Not on file Number of children: Not on file Years of education: Not on file Highest education level: Not on file Occupational History Not on file Tobacco Use Smoking status: Former Smokeless tobacco: Never Substance and Sexual Activity Alcohol use: Yes Drug use: Yes Sexual activity: Not on file Other Topics Concern Not on file Social History Narrative Works at the [employer] as a teacher. Lives alone at home. ROS: GENERAL: Negative for malaise, significant weight loss and fever RESPIRATORY: No cough, wheezing or shortness of breath CARDIOVASCULAR: Negative for chest pain, leg swelling and palpitations GI: Negative for abdominal discomfort, changes in bowel habits, blood in stool or black stools VITAL SIGNS Vitals: 02/17/25 1210 BP: (!) 151/78 Pulse: 85 Resp: 16 Temp: 36.3 ??C (97.3 ??F) TempSrc: Temporal Weight: 87.5 kg (192 lb 12.8 oz) Height: 1.626 m (64 ) Body mass index is 33.09 kg/m??. Body surface area is 1.93 meters squared. PHYSICAL EXAM: Blood pressure (!) 151/78, pulse 85, temperature 36.3 ??C (97.3 ??F), temperature source Temporal, resp. rate 16, height 1.626 m (64 ), weight 87.5 kg (192 lb 12.8 oz), last menstrual period 11/21/2024. Body mass index is 33.09 kg/m??. Plan is deferred until next visit APPEARANCE: Alert and in no acute distress HEART: RRR with normal S1 and S2, no murmurs, no gallops, no JVD appreciated CHEST: non-tender LUNG: Wheezing in the bilateral lung barton. ASSESSMENT/PLAN: Macie was seen today for follow-up. Diagnoses and all orders for this visit: Impaired fasting blood sugar (Primary) - Hemoglobin A1c; Future Elevated blood pressure reading Screening for lipid disorders - Lipid panel with reflex to direct LDL; Future Hypothyroidism, unspecified type - Thyroid stimulating hormone with reflex to free t4 and free t3; Future Moderate persistent asthma, unspecified whether complicated Other orders - fluticasone propion-salmeteroL (ADVAIR HFA) 230-21 mcg/actuation inhaler; Inhale 2 puffs by mouth2 (two) times a day. Rinse mouth with water after use to reduce aftertaste and incidence of candidiasis. Do not swallow. Plan Will screen for diabetes with hemoglobin A1c. Elevated blood pressure most likely due to ibuprofen intake. Will monitor for now. Will check screening lipids as well. Patient follows with [facility] endocrinology. On levothyroxine. Check TSH. She also has asthma, she is on Advair but is not taking it daily and appropriately. Advised on medication compliance. Advised to take it daily. Prescription for Advair sent. Continue albuterol as needed. I have applied the code G2211 to this patient???s visit as the primary care provider dealing with (above mentioned conditions) leading to the extensive work up, and management associated with the medical care of this patient. I have reviewed all information as it pertains to the management of this patient for final approval. Follow up in about 6 months (around 05/21/2025) for Next scheduled follow-up. Orders Placed This Encounter Procedures Hemoglobin A1c Lipid panel with reflex to direct LDL Thyroid stimulating hormone with reflex to free t4 and free t3 Jeramy Bernal MD documented in this encounter Plan of Treatment Upcoming Encounters Date Type Department Care Team (Late st Contact Info) Description 11/25/2024 9:45 AM EST Consult General Surgery - [place] [address] [phone] Chip Aguillon MD [address] [address] 08/17/2025 3:00 PM EST Office Visit [facility] Hematology Oncology [address] [place] [phone] Yulia Gusman PA [address] [place] [address] documented as of this encounter Results * (ABNORMAL) Thyroid stimulating hormone with reflex to free t4 and free t3 (11/21/2024 12:32 PM EST) TSH 0.08(L) 0.40 - 4.00 mcIU/mL LAB CHEMISTRY METHOD 11/21/2024 2:41 PM EST [facility] Blood Venous blood specimen / Unknown Venipuncture / Unknown 11/21/2024 12:32 PM EST 11/21/2024 12:32 PM EST us Jeramy Bernal MD LAB BLOOD ORDERABLES F inal Result [facility] [address] [place] [address], [place] [phone] * (ABNORMAL) Lipid panel with reflex to direct LDL (11/21/2024 12:32 PM EST) Cholesterol 185 0 - 200 mg/dL LAB CHEMISTRY METHOD 11/21/2024 2:43 PM EST [facility] Triglycerides 74 0 - 150 mg/dL LAB CHEMISTRY METHOD 11/21/2024 2:43 PM EST [facility] HDL 52 >=40 mg/dL LAB CHEMISTRY METHOD 11/21/2024 2:43 PM EST [facility] LDL Calculated 118(H) 0 - 100 mg/dL LAB CHEMISTRY METHOD 11/21/2024 2:43 PM [facility] VLDL Cholesterol Yoel 14.8 mg/dL LAB CHEMISTRY METHOD 11/21/2024 2:43 PM EST [facility] Non HDL Chol. (LDL+VLDL) 133 <145 mg/dL LAB CHEMISTRY METHOD 11/21/2024 2:43 PM EST [facility] Chol/HDL Ratio 3.6 0.0 - 4.4 LAB CHEMISTRY METHOD 11/21/2024 2:43 PM [facility] Blood Venous blood specimen / Unknown Venipuncture / Unknown 11/21/2024 12:32 PM EST 11/21/2024 12:32 PM EST Jeramy Bernal MD LAB BLOOD ORDERABLES F inal Result [facility] [address] [place] [address], [place] [phone] * Hemoglobin A1c (11/21/2024 12:32 PM EST) Hemoglobin A1C 5.6 <6.5 % LAB CHEMISTRY METHOD 11/21/2024 9:18 PM EST [facility] Mean Bld Glu Estim. 114 mg/dL LAB CHEMISTRY METHOD 11/21/2024 9:18 PM EST [facility] Blood Venous blood specimen / Unknown Venipuncture / Unknown 11/21/2024 12:32 PM EST 11/21/2024 12:32 PM EST Jeramy Bernal MD LAB BLOOD ORDERABLES F inal Result [facility] [address] [place] [address], documented in this encounter Visit Diagnoses Diagnosis Impaired fasting blood sugar- Primary Impaired fasting glucose Elevated blood pressure reading Elevated blood pressure reading without diagnosis of hypertension Screening for lipid disorders Hypothyroidism, unspecified type Moderate persistent asthma, unspecified whether complicated documented in this encounter Discontinued Medications Medication Sig Discontinue Reason Start Date End Da te fluticasone propion-salmeteroL (ADVAIR HFA) 230-21 mcg/actuation inhaler Inhale 2 puffs by mouth 2 (two) times a day. Rinse mouth with water after use to reduce aftertaste and incidence of candidiasis. Do not swallow. Reorder 10/10/2024 11/21/2024 documented as of this encounter Historical Medications * This list may reflect changes made after this encounter. doxycycline (VIBRAMYCIN) 50 mg capsule Take 1 capsule (50 mg total) by mouth 1 (one) time each day. added in this encounter Additional Health Concerns Assessment Noted Time PHQ-9 Depression Total Score: 9 11/15/19 25 1:07 PM EST documented as of this encounter Care Teams Surfacing Technician Relationship Specialty Start Date End Date Jeramy Bernal MD [address] [place] [address] PCP - General Internal Medicine 06/27/22 documented as of this encounter
--- OUTSIDE RECORDS SUMMARY | 2024-11-22 14:28 | XMS_ITS | Data Portability ---
Author Organization [facility], [address] Address [address] [place] [address] Assessment No assessment recorded. Plan of Treatment Reminders Order Date Submit Date Provider Last Modified By Organization Details Last Modified Time Details Appointments None recorded. Lab None recorded. Referral None recorded. Procedures None recorded. Surgeries None recorded. Imaging XR, knee, 3 view 2022 023 [facility], [address] [place] [address], [address], 3 20:38:26 Medication Orders naproxen 500 mg tablet 2022 023 [id number], [address] [place], [address], 17:42:12 Patient TargetsNo targets recorded. Patient Instructions Encounter Date Encounter Id Patient Instructions Last Modified By Organization Details Last Modified Time 06/29/2023 [id number] learning about rice (rest, ice, compression, and elevation) Not available 06/29/2023 17:42:01 knee pain or injury: care instructions Not available 06/29/2023 17:42:01 MUSCULOSKELETAL- K NEE: Inspection of the knee shows no erythema, ecchymosis, or swelling. FROM was full/limited Palpation of the calf and popliteal fossa showed no mass or tenderness. Palpation of patella was nontender. Palpation of medial and lateral joint lines were nontender. Patella ? grind-test? with NO crepitus. Valgus and Varus testing of the knee showed definite end points. Lateral collateral ligament was non-tender. Medial collateral ligament was nontender. Anterior Drawer Maneuvers: Normal Posterior Drawer maneuvers: Normal Joe's: Negative Arun's Negative Not available 06/29/2023 17:41:33 Reason for Referral None Reported. Results Created Date Observation Date Name Description Value Unit Range Abnormal Flag Note LastModifiedBy Organization Detail LastModifiedTime 06/29/20 23 06/29/2023 XR, knee, 3 view No observ ation record ed. [email or web address] [facility] [address] [place], [address], 06/30/2023 12:42:11 Result Notes None recorded. Problems Name Problem SNOMED Code Status Onset Date Resolution Date Notes Provider Name and Address Organization Details Recorded Time Anxiety 09038577 Active MAYA MINEO null, [place] - [facility] 17:32:28 Hypothermia 582642301 Active MAYA MINEO null, [place] - [facility] 3 17:32:40 Asthma 189143558 Active MAYA MINEO null, [place] - [facility] 3 17:32:48 Problem Notes None recorded. Procedures Surgical History None recorded. Imaging Results Imaging Date Name Status LastModified by Organiz ation Details LastModified Time 06/29/2023 XR, knee, 3 view completed [facility] [address] [place], [address], 06/30/2023 12:42:11 Procedure Notes None recorded. Medical Equipment None Reported. Allergies No known drug allergies Medications Name Sig Start Date Stop Date Status Note LastModified by Organization Details LastModified Time amoxicillin 500 mg capsule TAKE 1 CAPSULE (500 MG) BY MOUTH EVERY 8 (EIGHT) HOURS FOR 7 DAYS. 06/29 completed Not Available Not Available Not Available albuterol sulfate 2.5 mg/3 mL (0.083 %) solution for nebulizatio n TAKE 1 VIAL BY NEBULIZAT ION EVERY 4 HOURS NEEDED FOR WHEEZING FOR UP TO 180 DAYS. active Not Available Not Available No t Available ibuprofen 800 mg tablet TAKE 1 TABLET BY MOUTH EVERY 8 HOURS NEEDED FOR MILD PAIN FOR UP TO 10 DAYS active Not Available Not Available No t Available fluconazole 150 mg tablet TAKE 1 TABLET BY MOUTH ON DAY 1 THEN 1 TABLET EVERY 3RD DAY FOR 9 DAYS active Not Available Not Available No t Available doxycycline hyclate 50 mg capsule TAKE 1 CAPSULE BY MOUTH EVERY DAY WITH FOOD AND WATER active Not Available Not Available No t Available sertraline 100 mg tablet TAKE 1 TABLET BY MOUTH EVERY DAY WITH MEALS active Not Available Not Available No t Available oxcarbazepi ne 300 mg tablet TAKE 2 TABLETS BY MOUTH EVERY DAY AT BEDTIME active Not Available Not Available No t Available acetaminoph en ER 650 mg tablet,exte nded release TAKE 1 TABLET EVERY 8 HOURS IF NEEDED FOR PAIN FOR UP TO 10 DAYS. DO NOT CRUSH, CHEW, OR SPLIT. active Not Available Not Available No t Available lorazepam 0.5 mg tablet TAKE 1 TABLET BY MOUTH AT BEDTIME NEEDED FOR ANXIETY active Not Available Not Available No t Available sertraline 25 mg tablet TAKE 1 TABLET BY MOUTH EVERY DAY 06/29 completed Not Available Not Available Not Available hydroxyzine HCl 25 mg tablet active Not Available Not Available Not Available sertraline 50 mg tablet TAKE 1 TABLET BY MOUTH EVERY DAY WITH MEALS 06/29 completed Not Available Not Available Not Available doxycycline hyclate 100 mg tablet TAKE 1 TABLET BY MOUTH TWICE A DAY WITH FOOD 06/29 completed Not Available Not Available Not Available naproxen 500 mg tablet Take 1 tablet twice a day by oral route as needed for 10 days. 2022 active Not Available Not Available Not Avai lable etonogestre l 0.12 mg-ethinyl estradiol 0.015 mg/24 hr vaginal ring INSERT 1 RING VAGINALLY FOR 3 WEEKS. THEN RING FREE FOR 1 WEEK. 28 active Not Available Not Available No t Available Advair HFA 230 mcg-21 mcg/actuati on aerosol inhaler TAKE 2 PUFFS BY MOUTH TWICE A DAY active Not Available Not Available No t Available ferrous sulfate 324 mg (65 mg iron) tablet,juan josé yed release TAKE 1 TABLET BY MOUTH EVERY DAY active Not Available Not Available No t Available Tirosint 150 mcg capsule TAKE 1 CAPSULE BY MOUTH DAILY,BRA ND NAME ONLY active Not Available Not Available No t Available Vitals Date Recorded Body height Body mass index (BMI) Body weight Oxygen saturation Oxygen saturation in Arterial blood by Pulse oximetry Heart rate Respiratory rate Body temperature Systolic blood pressure Diastolic blood pressure Provider Name and Address Organization Details Last Updated DateTime 162.56 cm 31.6 kg/m2 03338 g 98 % 98 % 77 /min 18 /min 98.3 [degF] 142 mm[Hg] 84 mm[Hg] MAYA BROOKS YU - [facility] 18:03:22 Social History Question Answer Notes LastModified by Organizat ion Details LastModified Time Tobacco Smoking Status Never Smoker MAYA VUYU Robledo [facility] 06/29/2023 17:33:58 What Is Your Level Of Alcohol Consumption? Occasional Information not available 06/29/2023 Which Illicit Or Recreational Drugs Have You Used? Marijuana Information not available 06/29/2023 Do You Use Any Illicit Or Recreational Drugs? Yes Information not available 06/29/2023 Do You Or Have You Ever Used Any Other Forms Of Tobacco Or Nicotine? No Information not available 06/29/2023 Sex: Unknown Functional Status None recorded. Mental Status None recorded. Family History Nothing Reported. Medical History No medical history recorded. Gynecological History Statement/Question Response Date of LMP 06/22/2023 Is there any chance of ? No Obstetrics History GPAL:G 0 P 0 0 0 0 Past Encounters Encounter ID Performer Location Encounter Start Date Encounter Closed Date Diagnosis/Indication Diagnosis SNOMED-CT Code Diagnosis ICD10 Code Diagnosis Note [id number] [address] [address] 06/17/2022 09:03:12 06/17/2022 09:28:19 [id number] [address] [address] 06/27/2021 10:24:48 06/27/2021 13:20:59 [id number] [place] [address] [place] [address] 06/29/2023 16:11:23 06/29/2023 18:15:24 Pain of left knee joint [id number] 08530 M25.562 Health Concerns Section Related Observation LastModified by Organization Richard ls LastModified Time None Recorded Concern Status LastModified by Organization Details LastModified Time None Recorded Advance Directives Directive None Recorded Payers Encounter Date Sequence Insurance Name Policy Number Policy Delarosa Covered Member ID Delarosa Member ID Guarantor Name 06/27/2021 1 [facility] (MEDICAID REPLACEMENT - HMO) LEA Alvaradonese Cannon [id number] Dianese Cannon 06/17/2022 1 [facility] (MEDICAID REPLACEMENT - HMO) CARLIYACO Dianese Cannon [id number] Dianese Cannon 06/29/2023 1 [facility] (MEDICAID REPLACEMENT - HMO) CARLIYACO Dianese Cannon [id number] Dianese Cannon Notes Date Note Type Note Provider Name and Address Organization Details Recorded Time 06/29/2023 text/html KneeReported bypatient.Associat ed Symptoms:no weakness; no numbness; no tingling; no swelling; no redness; no warmth; no ecchymosis; no catching/locking; no popping/clicking; no buckling; no grinding; no instability; no radiation down leg; no drainage; no fever; no chills; no weight loss; no change in bowel/bladder habits Jayjay Maza NP [address] [place], [address], [place] - [facility] 06/29/2023 18:14:31 OBGyn Episode No OBEpisode recorded.
--- OUTSIDE RECORDS SUMMARY | 2024-11-22 14:28 | XMS_ITS | Clinical Summary ---
Author Organization [facility] Address [address] [place] [address] Phone Care Team Providers Care Wet Inspector Optical Glass Name Role Phone Jeramy Bernal MD Primary Care Provider Allergies No known active allergies Medications levothyroxine sodium (TIROSINT) 112 mcg capsule Take 137 mcg by mouth. Active albuterol 2.5 mg /3 mL (0.083 %) nebulizer solution Take 3 mL (2.5 mg total) by nebulization every 6 (six) hours if needed for wheezing. 75 mL 5 Active albuterol HFA (PROAIR HFA ; PROVENTIL HFA ; VENTOLIN HFA) 90 mcg/actuation inhaler Inhale 2 puffs by mouth every 6 (six) hours if needed for wheezing or shortness of breath (COUGH). 8.5 g 5 Active doxycycline (VIBRAMYCIN) 50 mg capsule Take 1 capsule (50 mg total) by mouth 1 (one) time each day. Active fluticasone propion-salmet Ju (ADVAIR HFA) 230-21 mcg/actuation inhaler Inhale 2 puffs by mouth 2 (two) times a day. Rinse mouth with water after use to reduce aftertaste and incidence of candidiasis. Do not swallow. 1 each 2 5 Active fluticasone propion-salmet Ju (ADVAIR HFA) 230-21 mcg/actuation inhaler Inhale 2 puffs by mouth 2 (two) times a day. Rinse mouth with water after use to reduce aftertaste and incidence of candidiasis. Do not swallow. 1 each 5 025 Discontin ued(Reord er) Active Problems Problem Noted Date Diagnosed Date Iron deficiency anemia due to chronic blood loss 11/01/2020 Intermenstrual bleeding 01/25/2018 Overview (05/23/2024): Last Assessment & Plan: Counseled pt that [...] months, thus not likely related. Depression 07/20/2014 Overview (05/23/2024): Suicide attempt Asthma 06/22/2014 Hypercholesterolemia 06/22/2014 Hypothyroidism 06/22/2014 Encounters Date Type Department Care Team Description 11/21/2024 12:00 PM EST Office Visit Adult Medicine [address] [phone] Jeramy Bernal MD Impaired fasting blood sugar (Primary Dx); Elevated blood pressure reading; Screening for lipid disorders; Hypothyroidism, unspecified type; Moderate persistent asthma, unspecified whether complicated 10/13/2024 4:33 PM EST - 10/13/2024 11:59 PM EST Hospital Encounter Radiology Department - [address] [phone] Lipoma of torso Discharge Disposition: Home or Self Care 10/10/2024 2:00 PM EST Office Visit Adult Medicine [address] [phone] Cuca Haddad PA Lipoma of torso (Primary Dx); Moderate persistent asthma, unspecified whether complicated 10/10/2024 Telephone Adult Medicine [address] [phone] Jeramy Bernal MD 10/10/2024 Telephone Adult Medicine [facility] [address] [place] [address] Cuca Haddad PA 09/14/2024 Nurse Triage Adult Medicine [facility] [address] [place], [place] [phone] Jeramy Bernal MD Asthma from Last 3 Months Surgical History Surgery Date Site/Laterality Comments OTHER SURGICAL HISTORY PROCEDURE: DENIES PREVIOUS SURGERY Medical History Medical History Date Comments Family history of breast can cer in mother 06/22/2014 DX:Family history of breast cancer in mother; COMMENT: Monthly breast self-exam Depression 07/20/2014 DX:Depression; C OMMENT: Suicide attempt Hypothyroidism 06/22/2014 DX:Hypothyroidis m; COMMENT: [facility] Asthma 06/22/2014 DX:Asthma H/O Graves' disease 06/22/2014 DX:H/O Grave s' disease; COMMENT: Was given radioactive iodine in 2012. 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 DX:Graves ' ophthalmopathy Family history of breast can cer in mother 11/03/2014 DX:Family history of breast cancer in mother Family History Medical History Relation Name Comments Thyroid disease Aunt maternal aun t Other: Other Father no information Other: heart disease Maternal Grandfather of head injury in his 40s Other: heart disease Maternal Grandmother arthritis, HTN Other: Other Paternal Grandfather Other: edema Paternal Grandmother Relation Name Status Comments Aunt Father Alive Maternal Grandfather Maternal Grandmother Paternal Grandfather Paternal Grandmother Social History Tobacco Use Types Packs/Day Years [...] care for your loved ones. For example, early childhood education coordinator or elderly care for an older adult? [...] Orientation Straight 11/07/2022 10 :42 AM EST Obstetrics History Last Filed Vital Signs Vital Sign Reading Time Taken Comments Blood Pressure 151/78 11/21/2024 12:10 PM EST provider will be recheck Pulse 85 11/21/2024 12:10 PM EST Temperature 36.3 ??C (97.3 ??F) 11/21/2024 1 2:10 PM EST Respiratory Rate 16 11/21/2024 12:1 0 PM EST Oxygen Saturation 99% 08/16/2024 1:1 6 PM EST Inhaled Oxygen Concentration - - Weight 87.5 kg (192 lb 12.8 oz) 11/21/2024 12:10 PM EST Height 162.6 cm (5' 4 ) 11/21/2024 12:1 0 PM EST Body Mass Index 33.09 11/21/2024 12:10 PM EST Plan of Treatment Upcoming Encounters Date Type Department Care Team (Late st Contact Info) Description 11/25/2024 9:45 AM EST Consult General Surgery - [facility] [address] [phone] Chip Aguillon MD [address] [address] 08/17/2025 3:00 PM EST Office Visit [facility] Hematology Oncology [address] [place] [phone] Yulia Gusman PA [address] [place] [address] Health Maintenance Due Date Last Done Comments Cervical Cancer Screening: Pap Smear 2014 Pneumococcal Vaccine: Pediatrics (0 to 5 Years) and At-Risk Patients (6 to 64 Years) (2 of 2 - PCV) 06/22/2015 06/22/2014 HIV Screening 09/13/2022 Hepatitis C Screening 09/13/2022 COVID-19 Vaccine ( season) 2024 Influenza Vaccine (#1) 2025 2, 09/19/2011, 07/26/2010, Additional history exists Postponed from 06/05/2024 (Patient Refused) Depression Screening 11/15/2025 11/15/2024 Social Influencers of Health Screening 11/15/2025 11/15/2024 DTaP,Tdap,and Td Vaccines (8 - Td or Tdap) 02/19/2026 02/20/2016, 07/26/2010, 12/02/2005, Additional history exists Cholesterol Screening (Lipid Panel) 11/21/2029 11/21/2024 Hepatitis B Vaccines Completed 1993, 1993, 1993 MMR Vaccines Completed 11/08/1997, 07/19/1996 HIB Vaccines Completed 07/26/2010, 07/06, 07/19/1996, Additional history exists IPV Vaccines Completed 07/26/2010, 01/1998, 07/19/1996, Additional history exists HPV Vaccines Completed 03/04/2012, 07/06, 05/15/2010 Meningococcal ACWY Vaccine Completed 03/04/2012, Hepatitis A Vaccines Aged Out No long er eligible based on patient's age to complete this topic Meningococcal B Vacine Aged Out No lo nger eligible based on patient's age to complete this topic RSV Immunization Patients Under 20 months Aged Out No longer eligible based on patient's age to complete this topic Varicella Vaccines Aged Out No longer eligible based on patient's age to complete this topic Procedures Procedure Name Priority Date/Time Associated Diagnosis Comments TRIIODOTHYRONINE FREE Routine 11/21/2024 12:32 PM EST Hypothyroidism, unspecified type FREE THYROXINE WITH REFLEX TO FREE TRIIODOTHYRONINE Routine 11/21/2024 12:32 PM EST Hypothyroidism, unspecified type CBC WITH AUTO DIFFERENTIAL Routine 11/21/2024 12:32 PM EST Iron deficiency anemia secondary to blood loss (chronic) Menorrhagia with regular cycle Fatigue, unspecified type CBC AND DIFFERENTIAL Routine 11/21/2024 12:32 PM EST Iron deficiency anemia secondary to blood loss (chronic) Menorrhagia with regular cycle Fatigue, unspecified type IRON AND TIBC Routine 11/21/2024 12:32 PM EST Iron deficiency anemia secondary to blood loss (chronic) Menorrhagia with regular cycle Fatigue, unspecified type FERRITIN Routine 11/21/2024 12:32 PM EST Iron deficiency anemia secondary to blood loss (chronic) Menorrhagia with regular cycle Fatigue, unspecified type LIPID PANEL WITH REFLEX TO DIRECT LDL Routine 11/21/2024 12:32 PM EST Screening for lipid disorders HEMOGLOBIN A1C Routine 11/21/2024 12:32 PM EST Impaired fasting blood sugar THYROID STIMULATING HORMONE WITH REFLEX TO FREE T4 AND FREE T3 Routine 11/21/2024 12:32 PM EST Hypothyroidism, unspecified type US ABDOMEN LIMITED Routine 10/13/2024 4: 39 PM EST Lipoma of torso from Last 3 Months Results * (ABNORMAL) Thyroid stimulating hormone with reflex to free t4 and free t3 (11/21/2024 12:32 PM EST) TSH 0.08(L) 0.40 - 4.00 mcIU/mL LAB CHEMISTRY METHOD 11/21/2024 2:41 PM EST [facility] Blood Venous blood specimen / Unknown Venipuncture / Unknown 11/21/2024 12:32 PM EST 11/21/2024 12:32 PM EST Jeramy Bernal MD LAB BLOOD ORDERABLES F inal Result [facility] [address] [place] [address], [place] [phone] * Free thyroxine with reflex to free triiodothyronine (11/21/2024 12:32 PM EST) Free T4 1.11 0.70 - 1.80 ng/dL LAB CHEMISTRY METHOD 11/21/2024 3:07 PM EST [facility] Blood Venous blood specimen / Unknown Venipuncture / Unknown 11/21/2024 12:32 PM EST 11/21/2024 12:32 PM EST Jeramy Bernal MD LAB BLOOD ORDERABLES F inal Result [facility] [address] [place] [address], [place] [phone] * (ABNORMAL) Lipid panel with reflex to direct LDL (11/21/2024 12:32 PM EST) [facility] Cholesterol 185 0 - 200 mg/dL LAB CHEMISTRY METHOD 11/21/2024 2:43 PM EST [facility] Triglycerides 74 0 - 150 mg/dL LAB CHEMISTRY METHOD 11/21/2024 2:43 PM EST [facility] HDL 52 >=40 mg/dL LAB CHEMISTRY METHOD 11/21/2024 2:43 PM EST [facility] LDL Calculated 118(H) 0 - 100 mg/dL LAB CHEMISTRY METHOD 11/21/2024 2:43 PM EST [facility] VLDL Cholesterol Yoel 14.8 mg/dL LAB CHEMISTRY METHOD 11/21/2024 2:43 PM EST [facility] Non HDL Chol. (LDL+VLDL) 133 <145 mg/dL LAB CHEMISTRY METHOD 11/21/2024 2:43 PM EST [facility] Chol/HDL Ratio 3.6 0.0 - 4.4 LAB CHEMISTRY METHOD 11/21/2024 2:43 PM EST [facility] Blood Venous blood specimen / Unknown Venipuncture / Unknown 11/21/2024 12:32 PM EST 11/21/2024 12:32 PM EST Jeramy Bernal MD LAB BLOOD ORDERABLES F inal Result [facility] [address] [place] [address], [place] [phone] * (ABNORMAL) CBC auto differential (11/21/2024 12:32 PM EST) [facility] WBC 9.7 4.8 - 10.8 K/mcL LAB HEMETOLOGY METHOD 11/21/2024 2:03 PM [facility] RBC 4.80 3.80 - 4.80 M/mcL LAB HEMETOLOGY METHOD 11/21/2024 2:03 PM [facility] Hemoglobin 12.7 11.5 - 16.0 g/dL LAB HEMETOLOGY METHOD 11/21/2024 2:03 PM [facility] Hematocrit 40.5 35.0 - 47.0 % LAB HEMETOLOGY METHOD 11/21/2024 2:03 PM [facility] MCV 84.7 79.0 - 98.0 FL LAB HEMETOLOGY METHOD 11/21/2024 2:03 PM [facility] MCH 26.6(L) 27.0 - 32.0 pcg LAB HEMETOLOGY METHOD 11/21/2024 2:03 PM [facility] MCHC 31.4(L) 32.0 - 37.0 g/dL LAB HEMETOLOGY METHOD 11/21/2024 2:03 PM [facility] RDW 14.0 11.0 - 15.0 % LAB HEMETOLOGY METHOD 11/21/2024 2:03 PM [facility] Platelets 360 130 - 400 K/mcL LAB HEMETOLOGY METHOD 11/21/2024 2:03 PM [facility] MPV 10.1 7.0 - 11.0 FL LAB HEMETOLOGY METHOD 11/21/2024 2:03 PM [facility] NRBC 0.0 <1.0 % LAB HEMETOLOGY METHOD 11/21/2024 2:03 PM [facility] NRBC Absolute 0.00 <0.10 K/mcL LAB HEMETOLOGY METHOD 11/21/2024 2:03 PM [facility] Neutrophils Relative 70.9 % LAB HEMETOLOGY METHOD 11/21/2024 2:03 PM [facility] Lymphocytes Relative 19.4 % LAB HEMETOLOGY METHOD 11/21/2024 2:03 PM [facility] Monocytes Relative 7.4 % LAB HEMETOLOGY METHOD 11/21/2024 2:03 PM [facility] Eosinophils Relative 1.8 % LAB HEMETOLOGY METHOD 11/21/2024 2:03 PM [facility] Basophils Relative 0.2 % LAB HEMETOLOGY METHOD 11/21/2024 2:03 PM [facility] Immature Granulocytes Relative 0.3 % LAB HEMETOLOGY METHOD 11/21/2024 2:03 PM [facility] Neutrophils Absolute 6.85 1.50 - 7.00 K/mcL LAB HEMETOLOGY METHOD 11/21/2024 2:03 PM [facility] Lymphocytes Absolute 1.87 1.00 - 5.00 K/mcL LAB HEMETOLOGY METHOD 11/21/2024 2:03 PM [facility] Monocytes Absolute 0.71 0.20 - 1.00 K/mcL LAB HEMETOLOGY METHOD 11/21/2024 2:03 PM [facility] Eosinophils Absolute 0.17 0.00 - 0.50 K/mcL LAB HEMETOLOGY METHOD 11/21/2024 2:03 PM [facility] Basophils Absolute 0.02 0.00 - 0.20 K/mcL LAB HEMETOLOGY METHOD 11/21/2024 2:03 PM [facility] Immature Granulocytes Absolute 0.03 0.00 - 0.03 K/mcL LAB HEMETOLOGY METHOD 11/21/2024 2:03 PM [facility] Blood Venous blood specimen / Unknown Venipuncture / Unknown 11/21/2024 12:32 PM EST 11/21/2024 12:32 PM EST Yulia NICHOLAS LAB BLOOD ORDERABLES Final Resul t Performing Organization Address [facility]/ZIP Co de Phone Number [facility] [address] [place] [address], [place] [phone] * Iron and TIBC (11/21/2024 12:32 PM EST) Iron 74 40 - 150 mcg/dL LAB CHEMISTRY METHOD 11/21/2024 2:34 PM EST [facility] TIBC 428 250 - 450 mcg/dL LAB CHEMISTRY METHOD 11/21/2024 2:34 PM EST [facility] Iron Saturation 17 15 - 50 % LAB CHEMISTRY METHOD 11/21/2024 2:34 PM EST [facility] Blood Venous blood specimen / Unknown Venipuncture / Unknown 11/21/2024 12:32 PM EST 11/21/2024 12:32 PM EST Yulia NICHOLAS LAB BLOOD ORDERABLES Final Resul t Performing Organization Address [facility]/ZIP Co de Phone Number [facility] [address] [place] [address], [place] [phone] * Triiodothyronine free (11/21/2024 12:32 PM EST) T3, Free 308 230 - 420 pcg/dL LAB CHEMISTRY METHOD 11/21/2024 3:33 PM EST [facility] Blood Venous blood specimen / Unknown Venipuncture / Unknown 11/21/2024 12:32 PM EST 11/21/2024 12:32 PM EST Jeramy Bernal MD LAB BLOOD ORDERABLES F inal Result Performing Organization Address City/[facility]/ZIP Co de Phone Number [facility] [address] [place] [address], [place] [phone] * Hemoglobin A1c (11/21/2024 12:32 PM EST) Pathologist [facility] Hemoglobin A1C 5.6 <6.5 % LAB CHEMISTRY METHOD 11/21/2024 9:18 PM EST [facility] Mean Bld Glu Estim. 114 mg/dL LAB CHEMISTRY METHOD 11/21/2024 9:18 PM EST [facility] Blood Venous blood specimen / Unknown Venipuncture / Unknown 11/21/2024 12:32 PM EST 11/21/2024 12:32 PM EST us Jeramy Bernal MD LAB BLOOD ORDERABLES F inal Result Performing Organization Address [facility]/ZIP Co de Phone Number [facility] [address] [place] [address], [place] [phone] * Ferritin (11/21/2024 12:32 PM EST) [facility] Ferritin 8 8 - 252 ng/mL LAB CHEMISTRY METHOD 11/21/2024 2:44 PM EST [facility] Blood Venous blood specimen / Unknown Venipuncture / Unknown 11/21/2024 12:32 PM EST 11/21/2024 12:32 PM EST us Yulia NICHOLAS LAB BLOOD ORDERABLES Final Resul t Performing Organization Address [facility]/ZIP Co de Phone Number [facility] [address] [place] [address], [place] [phone] * US Abdomen Limited (10/13/2024 4:39 PM EST) Anatomical Region Laterality Modality Body Ultrasound 10/14/2024 8:56 AM EST Narrative 10/14/2024 8:57 AM EST Limited ultrasound of the abdomen. History lump in the left upper quadrant. Examination was directed by the patient to the area of concern which corresponds to mixed echogenicity nonvascular mass measuring 7.2 x 2 x 4.5 cm. It could represent lipoma or other neoplasm. Clinical evaluation is recommended. CONCLUSIONS: Palpable abnormality corresponds to mixed echogenicity nonvascular mass which could represent lipoma or other neoplasm. Clinical assessment is recommended. -------- FINAL REPORT -------- Dictated By: Yulia Hernández Dictated Date: 10/14/2024 08:56 ET Assigned Physician: Yulia Hernández Reviewed and Electronically Signed By: Yulia Hernández Signed Date: 10/14/2024 08:57 ET Workstation ID: [id number] Transcribed By: Self Edit Transcribed Date: 10/14/2024 08:56 ET Procedure Note Yulia Hernández MD - 10/14/2024 Limited ultrasound of the abdomen. History lump in the left upper quadrant. Examination was directed by the patient to the area of concern whichcorresponds to mixed echogenicity nonvascular mass measuring 7.2 x 2 x 4.5cm. It could represent lipoma or other neoplasm. Clinical evaluation isrecommended. CONCLUSIONS: Palpable abnormality corresponds to mixed echogenicitynonvascular mass which could represent lipoma or other neoplasm. Clinicalassessment is recommended. -------- FINAL REPORT -------- Dictated By: Yulia Hernández Dictated Date: 10/14/2024 08:56 ET Assigned Physician: Yulia Hernández Reviewed and Electronically Signed By: Yulia Hernández Signed Date: 10/14/2024 08:57 ET Workstation ID: [id number] Transcribed By: Self Edit Transcribed Date: 10/14/2024 08:56 ET us Cuca NICHOLAS IM US PROCEDURES Final Result from Last 3 Months Insurance Care Teams Wet Inspector Optical Glass Relationship Specialty Start Date End Date Jeramy Bernal MD [address] [place] [address] PCP - General Internal Medicine 06/27/22
== END 2024-11-22 14:40 | disposition home or self-care (01) ==
PROVIDERS: PCP Internal Medicine; Visit Provider Advanced Practice Midwife
DX: N92.0 Excessive and frequent menstruation with regular cycle (principal); N94.6 Dysmenorrhea, unspecified; Z87.42 Personal history of other diseases of the female genital tract; Z30.09 Encounter for other general counseling and advice on contraception
CPT/HCPCS: 99213

== ENCOUNTER 2024-11-22 13:32 | Outpatient (REF) | payer SELFPAY ==
--- OUTSIDE RECORDS SUMMARY | 2024-11-22 15:41 | XMS_ITS | Encounter Summary ---
Author Organization [facility] Address [address] [place] [address] Phone Care Team Providers Care Upper Stitcher Name Role Phone Arleth Noel NP Primary Care Provider Encounter Details Date Type Department Care Team (Late st Contact Info) Description 12/17/2011 Documentation [facility] Family Medicine [address] [place], [place] [id number] Family Medicine, Physician [address] [place], [place] [address] Social History Tobacco Use Types Packs/Day Years Used Date Smoking Tobacco: Never Assessed Comments Unknown Sex and Gender Information Value Date Recorded Sex Assigned at Not on file Legal Sex Female 4:45 PM EDT Gender Identity Not on file Sexual Orientation Not on file documented as of this encounter Plan of Treatment Not on file documented as of this encounter Visit Diagnoses Not on filedocumented in this encounter Care Teams Upper Stitcher Relationship Specialty Start Date End Date Arleth Noel NP PCP - General 05/15/17 documented as of this encounter
--- OUTSIDE RECORDS SUMMARY | 2024-11-22 15:41 | XMS_ITS | Encounter Summary ---
Author Organization [facility] Address [address] [place] [address] Phone Care Team Providers Care Buggy Runner Name Role Phone Arleth Noel NP Primary Care Provider [phone] Encounter Details Date Type Department Care Team (Late st Contact Info) Description 10/07/2011 Documentation [facility] [place] Medicine [address] [place], [place] [phone] Family Medicine, Physician [address] [place], [place] [address] Social History Tobacco Use Types Packs/Day Years [...] on filedocumented in this encounter Care Teams Buggy Runner Relationship Specialty Start Date End Date Arleth Noel NP PCP - General 05/15/17 documented as of this encounter
--- OUTSIDE RECORDS SUMMARY | 2024-11-22 15:41 | XMS_ITS | Clinical Summary ---
Author Organization [facility] Address [address] [place] [address] Care Team Providers Care Picking Belt Operator Name Role Phone Jeramy Bernal Primary Care [...] Group Subscriber ID Effective Dates Phone Address [facility] [id number] 2023-Present [address] [facility] [address] [place] [address] HMO Care Teams Picking Belt Operator Relationship Specialty Start Date End Date Jeramy Bernal MBBS [address] [place] [address] PCP - General Internal Medicine 03/25/23
--- OUTSIDE RECORDS SUMMARY | 2024-11-22 15:41 | XMS_ITS | Encounter Summary ---
Author Organization [facility] Address [address] [place] [phone] Phone Care Team Providers Care Compressed Gases Tester Name Role Phone Arleth Noel NP Primary Care Provider [phone] Encounter Details Date Type Department Care Team (Late st Contact Info) Description 10/07/2011 [place] [facility] [place] [address] [place], [place] [id number] Family Medicine, Physician [address] [place], [place] [address] Social History Tobacco Use Types Packs/Day Years [...] on filedocumented in this encounter Care Teams Compressed Gases Tester Relationship Specialty Start Date End Date Arleth Noel NP PCP - General 05/15/17 documented as of this encounter
--- OUTSIDE RECORDS SUMMARY | 2024-11-22 15:41 | XMS_ITS | Encounter Summary ---
Author Organization [facility] Address [address] [place] [address] Phone Care Team Providers Care Business Risk Analyst Name Role Phone Arleth Noel NP Primary Care Provider [phone] Encounter Details Date Type Department Care Team (Late st Contact Info) Description 02/11/2012 Documentation [facility] [place] [address] [place], [place] [id number] Family Medicine, Physician [address] [place], [place] [address] Social History Tobacco Use Types Packs/Day Years [...] on filedocumented in this encounter Care Teams Business Risk Analyst Relationship Specialty Start Date End Date Arleth Noel NP PCP - General 05/15/17 documented as of this encounter
--- OUTSIDE RECORDS SUMMARY | 2024-11-22 15:41 | XMS_ITS | Encounter Summary ---
Author Organization [facility] Address [address] [place] [address] Phone Care Team Providers Care Route Salesperson Name Role Phone Arleth Noel NP Primary Care Provider [phone] Encounter Details Date Type Department Care Team (Late st Contact Info) Description 11/03/2011 Documentation [facility] [place] Family Medicine [address] [place], [place] [phone] Family Medicine, Physician [address] [place], [place] [address] Social History Tobacco Use Types Packs/Day Years [...] on filedocumented in this encounter Care Teams Route Salesperson Relationship Specialty Start Date End Date Arleth Noel NP PCP - General 05/15/17 documented as of this encounter
--- OUTSIDE RECORDS SUMMARY | 2024-11-22 15:41 | XMS_ITS | Encounter Summary ---
Author Organization [facility] Address [address] [place] [address] Phone Care Team Providers Care Online Trader Name Role Phone Arleth Noel NP Primary Care Provider [phone] Encounter Details Date Type Department Care Team (Late st Contact Info) Description 02/04/2012 Documentation [facility] [place] Family Medicine [address] [place], [place] [phone] Family Medicine, Physician [address] [place], [place] [address] Social History Tobacco Use Types Packs/Day Years [...] on filedocumented in this encounter Care Teams Online Trader Relationship Specialty Start Date End Date Arleth Noel NP PCP - General 05/15/17 documented as of this encounter
--- OUTSIDE RECORDS SUMMARY | 2024-11-22 15:41 | XMS_ITS | Encounter Summary ---
Author Organization [facility] Address [address] [place] [address] Phone Care Team Providers Care Theology Professor Name Role Phone Arleth Noel NP Primary Care Provider [phone] Encounter Details Date Type Department Care Team (Late st Contact Info) Description 05/21/2017 Conversion Encounter [facility] - [address] [address] Social History Tobacco Use Types Packs/Day Years Used Date Smoking Tobacco: Some Days Comments:Current some day sm oker Comments Unknown Sex and Gender Information Value Date Recorded Sex Assigned at Not on file Legal Sex Female 4:45 PM EDT Gender Identity Not on file Sexual Orientation Not on file documented as of this encounter Plan of Treatment Not on file documented as of this encounter Visit Diagnoses Not on filedocumented in this encounter Care Teams Theology Professor Relationship Specialty Start Date End Date Arleth Noel NP PCP - General 05/15/17 documented as of this encounter
--- OUTSIDE RECORDS SUMMARY | 2024-11-22 15:41 | XMS_ITS | Encounter Summary ---
Author Organization [facility] Address [address] [place] [address] Phone Care Team Providers Care Computer Trainer Name Role Phone Arleth Noel NP Primary Care Provider [phone] Encounter Details Date Type Department Care Team (Late st Contact Info) Description 02/03/2012 Documentation [facility] [place] Family Medicine [address] [place], [place] [phone] Family Medicine, Physician [address] [place], [place] [address]41 Social History Tobacco Use Types Packs/Day Years [...] on filedocumented in this encounter Care Teams Computer Trainer Relationship Specialty Start Date End Date Arleth Noel NP PCP - General 05/15/17 documented as of this encounter
--- OUTSIDE RECORDS SUMMARY | 2024-11-22 15:41 | XMS_ITS | Encounter Summary ---
Author Organization [facility] Address [address] [place] [address] Phone Care Team Providers Care Polisher Apprentice Name Role Phone Arleth Noel NP Primary Care Provider [phone] Encounter Details Date Type Department Care Team (Late st Contact Info) Description 09/20/2012 Documentation [facility] [place] Family Medicine [address] [place], [place] [id number] Family Medicine, Physician [address] [place], [place] 418801 Social History Tobacco Use Types Packs/Day Years [...] on filedocumented in this encounter Care Teams Polisher Apprentice Relationship Specialty Start Date End Date Arleth Noel NP PCP - General 05/15/17 documented as of this encounter
--- OUTSIDE RECORDS SUMMARY | 2024-11-22 15:41 | XMS_ITS | Clinical Summary ---
Author Organization [facility] Address [address] [place] [address] Phone Care Team Providers Care Psychiatric Nursing Aide Name Role Phone Arleth Noel NP Primary Care Provider [phone] Immunizations Immunization Administration Dates Next Due DTaP 5 05/29/1999, 8,07/19/1996, 994,1993 HPV, Quadrivalent 03/04/2012,07/26/2010,05/15/20 10 Hep B, ped/adol 1993,1993,1993 Hib (PRP-T) 07/19/1996,1993,1993 IPV 11/08/1997, 6,1993, 993 Influenza Split 09/16/2012,09/19/2011,07/26/2010 Influenza, injectable, trivalent 07/25/2009,10/05,11/13/2004 MMR 11/08/1997,07/19/1996 Meningococcal Conj (Menactra) MCV4P 03/04/2012,0 12/02/2005 Tdap 12/02/2005 Family History Relation Name Status Comments Maternal Grandfather Materna l grandfather: Coronary artery disease Maternal Grandmother Materna l grandmother: Coronary artery disease Mother Mother: Hyperte nsion, Cancer, breast Social History Tobacco Use Types Packs/Day Years Used Date Smoking Tobacco: Some Days Comments:Current some day sm oker Comments Unknown Sex and Gender Information Value Date Recorded Sex Assigned at Not on file Legal Sex Female 4:45 PM EDT Gender Identity Not on file Sexual Orientation Not on file Last Filed Vital Signs Vital Sign Reading Time Taken Comments Blood Pressure 116/80 11/19/2012 12:00 AM EST Pulse 99 11/19/2012 12:00 AM EST Temperature 36.8 ??C (98.2 ??F) 11/19/2012 12:[address] Respiratory Rate - - Oxygen Saturation 99% 11/19/2012 12:00 AM EST Inhaled Oxygen Concentration - - Weight 67.1 kg (148 lb) 11/19/2012 12:00 AM EST Height 161.8 cm (5' 3.7 ) 11/18/2012 12:00 AM ES T Body Mass Index 25.64 11/18/2012 12:00 AM EST Plan of Treatment Health Maintenance Due Date Last Done Comments Varicella Vaccines (1 of 2 - 13+ 2-dose series) 2006 DTaP,Tdap,and Td Vaccines (7 - Td or Tdap) 12/02/2015 12/02/2005, 05/29/1999, 11/08/1997, Additional history exists Influenza Vaccines (#1) 2024 09/16/20 12, 09/19/2011, 07/26/2010, Additional history exists COVID-19 Vaccine ( season) 2024 Hepatitis B Vaccines Completed 1993, 1993, 1993 HIB Vaccines Completed 07/19/1996, 11/06, 1993 IPV Vaccines Completed 11/08/1997, 07/05, 1993, Additional history exists MMR Vaccines Completed 11/08/1997, 07/19/1996 HPV Vaccines Completed 03/04/2012, 07/06, 05/15/2010 Meningococcal Vaccine Completed 03/04/2012, 006 Hepatitis A Vaccines Aged Out No long er eligible based on patient's age to complete this topic Men B Vaccine Aged Out No longer elig ible based on patient's age to complete this topic Pneumococcal Vaccine Aged Out No long er eligible based on patient's age to complete this topic Procedures * Due to [place] state law, this organization might not be sharing sensitive test results. Procedure Name Priority Date/Time Associated Diagnosis Comments CHLAMYDIA AND GONORRHEA, AMPLIFIED Routine 09/17/2012 12:35 PM EST from Last 3 Months or Most Recently Relevant to Health Maintenance Results * Due to [place] state law, this organization might not be sharing sensitive test results. * Chlamydia and Gonorrhoea, Amplified (09/17/2012 12:35 PM EST) URINE GC AMP PROBE NEGATIVE [facility] Comment: NO NEISSERIA GONORRHOEAE RNA DETECTED IN THIS PATIENT'S SAMPLE. ? (REFERENCE RANGE/NORMAL VALUE: NOT DETECTED) ? NOTE: THIS TEST USES SOCIAL SCIENCES LECTURER MEDIATED AMPLIFICATION METHOD TO DETECT rRNA FROM C.TRACHOMATIS AND N.GONORRHOEAE. A NEGATIVE RESULT DOES NOT PRECLUDE INFECTION WITH C.TRACHOMATIS OR N.GONORRHOEAE BECAUSE RESULTS ARE DEPENDENT ON ADEQUATE SPECIMEN COLLECTION, ABSENCE OF INHIBITORS, AND SUFFICIENT rRNA TO BE DETECTED. THE APTIMA COMBO2 ASSAY IS NOT INTENDED FOR THE EVALUATION OF SUSPECTED SEXUAL ABUSE OR FOR OTHER MEDICO LEGAL INDICATIONS. IS TRUE FOR ALL NON CULTURE METHODS, A POSITIVE SPECIMEN OBTAINED FROM A PATIENT AFTER THERAPEUTIC TREATMENT CANNOT BE INTERPRETED INDICATING THE PRESENCE OF VIABLE C.TRACHOMATIS OR N.GONORRHOEAE. THERAPEUTIC FAILURE OR SUCCESS CANNOT BE DETERMINED WITH THE APTIMA COMBO2 ASSAY SINCE NUCLEIC ACID MAY PERSIST FOLLOWING APPROPRIATE ANTIMICROBIAL THERAPY. A NEGATIVE URINE RESULT FOR A PATIENT WHO IS CLINICALLY SUSPECTED OF HAVING A CHLAMYDIAL OR GONOCOCCAL INFECTION DOES NOT RULE OUT THE PRESENCE OF C.TRACHOMATIS OR N.GONORRHOEAE IN THE UROGENITAL TRACT. TESTING OF AN ENDOCERVICAL(FEMALE) OR URETHRAL(MALE) SPECIMEN IS RECOMMENDED IF THERE IS HIGH CLINICAL SUSPICION OF INFECTION. PRESERVCYT LIQUID PAP AND URINE SAMPLING ARE NOT DESIGNED TO REPLACE CERVICAL EXAMS AND ENDOCERVICAL SAMPLES FOR DIAGNOSIS OF FEMALE UROGENITAL INFECTIONS. PATIENTS MAY HAVE CERVICITIS, URETHRITIS, URINARY TRACT INFECTIONS, OR VAGINAL INFECTIONS DUE TO OTHER CAUSES OR CONCURRENT INFECTIONS WITH OTHER AGENTS. URINE CHLAMYDIA AMP PROBE NEGATIVE [facility] Comment: NO CHLAMYDIA TRACHOMATIS RNA DETECTED IN THIS PATIENT'S SAMPLE. ? (REFERENCE RANGE/NORMAL VALUE: NOT DETECTED) 09/17/2012 12:3 5 PM EST Narrative [facility] - 09/17/2012 12:35 PM EST URINE CHLAMYDIA GC AMP PROBE Marisa Vincent DO LAB MICROBIOLOGY - GENERAL ORDER MARILYN Final Result [facility] [address] [place] [address], from Last 3 Months or Most Recently Relevant to Health Maintenance Care Teams Psychiatric Nursing Aide Relationship Specialty Start Date End Date Arleth Noel NP PCP - General 05/15/17
--- OUTSIDE RECORDS SUMMARY | 2024-11-22 15:41 | XMS_ITS | Encounter Summary ---
Author Organization [facility] Address [address] [place] [address] Phone Care Team Providers Care Strap Sewer Name Role Phone Arleth Noel NP Primary Care Provider [phone] Encounter Details Date Type Department Care Team (Late st Contact Info) Description 11/03/2011 Documentation [facility] Family Medicine [address] [place], [place] [phone] Family Medicine, Physician [address] [place], [place] [address] Social History Tobacco Use Types Packs/Day Years [...] on filedocumented in this encounter Care Teams Strap Sewer Relationship Specialty Start Date End Date Arleth Noel NP PCP - General 05/15/17 documented as of this encounter
--- OUTSIDE RECORDS SUMMARY | 2024-11-22 15:42 | XMS_ITS | Encounter Summary ---
Author Organization [facility] Address [address] [place] [address] Phone Care Team Providers Care Skiver Box Toe Name Role Phone Arleth Noel NP Primary Care Provider [phone] Encounter Details Date Type Department Care Team (Late st Contact Info) Description 10/11/2012 Documentation [facility] [place] Medicine [address] [place], [place] [phone] Family Medicine, Physician [address] [place], [place] [address]91 Social History Tobacco Use Types Packs/Day Years [...] on filedocumented in this encounter Care Teams Skiver Box Toe Relationship Specialty Start Date End Date Arleth Noel NP PCP - General 05/15/17 documented as of this encounter
--- OUTSIDE RECORDS SUMMARY | 2024-11-22 15:42 | XMS_ITS | Encounter Summary ---
Author Organization [facility] Address [address] [place] [address] Care Team Providers Care Vp Legal Affairs Name Role Phone Jeramy Bernal MD Primary Care Provider Encounter Details Date Type Department Care Team (Late st Contact Info) Description 10/10/2024 Telephone Adult Medicine [facility] [address] [place] [address] Jeramy Bernal MD [address] [place] [address] Social History Tobacco Use Types Packs/Day Years [...] there are any concerns. She spoke to [facility] documented in this encounter Plan of Treatment Upcoming Encounters Date Type Department Care Team (Late st Contact Info) Description 11/25/2024 9:45 AM EST Consult General Surgery - [place] [address] [phone] Chip Aguillon MD [address] [address] 08/17/2025 3:00 PM EST Office Visit [facility] Hematology Oncology [address] [place] [phone] Yulia Gusman PA [address] [place] [address] documented as of this encounter Visit Diagnoses Not on filedocumented in this encounter Care Teams Vp Legal Affairs Relationship Specialty Start Date End Date Jeramy Bernal MD [address] [place] [address] PCP - General Internal Medicine 06/27/22 documented as of this encounter
--- OUTSIDE RECORDS SUMMARY | 2024-11-22 15:42 | XMS_ITS | Encounter Summary ---
Author Organization [facility] Address [address] [place] [address] Phone Care Team Providers Care Oncology Rep Name Role Phone Arleth Noel NP Primary Care Provider [phone] Encounter Details Date Type Department Care Team (Late st Contact Info) Description 07/19/2012 Documentation [facility] [place] Medicine [address] [place], [place] [phone] Family Medicine, Physician [address] [place], [place] [address]101 Social History Tobacco Use Types Packs/Day Years [...] on filedocumented in this encounter Care Teams Oncology Rep Relationship Specialty Start Date End Date Arleth Noel NP PCP - General 05/15/17 documented as of this encounter
--- OUTSIDE RECORDS SUMMARY | 2024-11-22 15:42 | XMS_ITS | Encounter Summary ---
Author Organization [facility] Address [address] [place] [address] Phone Care Team Providers Care Warehouse Engineer Name Role Phone Arleth Noel NP Primary Care Provider [phone] Encounter Details Date Type Department Care Team (Late st Contact Info) Description 05/15/2010 Documentation [facility] [address] [place], [place] [phone] Family Medicine, Physician [address] [place], [place] [address]2441 Social History Tobacco Use Types Packs/Day Years [...] on filedocumented in this encounter Care Teams Warehouse Engineer Relationship Specialty Start Date End Date Arleth Noel NP PCP - General 05/15/17 documented as of this encounter
--- OUTSIDE RECORDS SUMMARY | 2024-11-22 15:42 | XMS_ITS | Encounter Summary ---
Author Organization [facility] Address [address] [place] [address] Phone Care Team Providers Care Supervisor Corduroy Cutting Name Role Phone Arleth Noel NP Primary Care Provider Encounter Details Date Type Department Care Team (Late st Contact Info) Description 02/12/2010 Documentation [facility] [address] [place] [address] Family Medicine, Physician [address] [place], [place] 549561 Social History Tobacco Use Types Packs/Day Years [...] on filedocumented in this encounter Care Teams Supervisor Corduroy Cutting Relationship Specialty Start Date End Date Arleth Noel NP PCP - General 05/15/17 documented as of this encounter
--- OUTSIDE RECORDS SUMMARY | 2024-11-22 15:42 | XMS_ITS | Encounter Summary ---
Author Organization [facility] Address [address] [place] [address] Phone Care Team Providers Care Strainer Tender Name Role Phone Arleth Noel NP Primary Care Provider [phone] Encounter Details Date Type Department Care Team (Late st Contact Info) Description 04/09/2012 Documentation [facility] [place] Family Medicine [address] [place], [place] [phone] Family Medicine, Physician [address] [place], [place] [address]87691 Social History Tobacco Use Types Packs/Day Years [...] on filedocumented in this encounter Care Teams Strainer Tender Relationship Specialty Start Date End Date Arleth Noel NP PCP - General 05/15/17 documented as of this encounter
--- OUTSIDE RECORDS SUMMARY | 2024-11-22 15:42 | XMS_ITS | Encounter Summary ---
Author Organization [facility] Address [address] [place] [address] Phone Care Team Providers Care Computer Information Systems Professor Name Role Phone Arleth Noel NP Primary Care Provider [phone] Encounter Details Date Type Department Care Team (Late st Contact Info) Description 04/06/2012 Documentation [facility] [place] Family Medicine [address] [place], [place] [phone] Family Medicine, Physician [address] [place], [place] [address]241 Social History Tobacco Use Types Packs/Day Years [...] filedocumented in this encounter Care Teams Computer Information Systems Professor Relationship Specialty Start Date End Date Arleth Noel NP PCP - General 05/15/17 documented as of this encounter
--- OUTSIDE RECORDS SUMMARY | 2024-11-22 15:42 | XMS_ITS | Encounter Summary ---
Author Organization [facility] Address [address] [place] [address] Phone Care Team Providers Care Tail Trimmer Name Role Phone Arleth Noel NP Primary Care Provider [phone] Encounter Details Date Type Department Care Team (Late st Contact Info) Description 10/27/2012 Documentation [facility] [place] Family Medicine [address] [place], [place] [phone] Family Medicine, Physician [address] [place], [place] [address] Social History Tobacco Use Types Packs/Day Years [...] on filedocumented in this encounter Care Teams Tail Trimmer Relationship Specialty Start Date End Date Arleth Noel NP PCP - General 05/15/17 documented as of this encounter
--- OUTSIDE RECORDS SUMMARY | 2024-11-22 15:42 | XMS_ITS | Encounter Summary ---
Author Organization [employer] Address [address] [place] [address] Care Team Providers Care Service Desk Analyst Name Role Phone Jeramy Bernal MD Primary Care Provider Reason for Visit * Reason Comments Follow-up Pre diabetic concern Encounter Details Date Type Department Care Team ([facility] st Contact Info) Description 11/21/2024 12:00 PM EST Office Visit Adult Medicine [facility] [address] [place] [address] Jeramy Bernal MD [address] [place] [address] Impaired fasting blood sugar (Primary Dx); Elevated [...] care for your loved ones. For example, child care director or elderly care for an older adult? [...] file Social History Narrative Works at the [employer] as a teacher. Lives alone at [...] screening lipids as well. Patient follows with [facility] endocrinology. On levothyroxine. Check TSH. She also [...] 9:45 AM EST Consult General Surgery - [place] [address] [phone] Chip Aguillon MD [address] [address] 08/17/2025 3:00 PM EST Office Visit [facility] Hematology Oncology [address] [place] [phone] Yulia Gusman PA [address] [place] [address] documented as of this encounter Results * (ABNORMAL) Thyroid stimulating hormone with reflex to free t4 and free t3 (11/21/2024 12:32 PM EST) TSH 0.08(L) 0.40 - 4.00 mcIU/mL LAB CHEMISTRY METHOD 11/21/2024 2:41 PM EST [facility] Blood Venous blood specimen / Unknown Venipuncture / Unknown 11/21/2024 12:32 PM EST 11/21/2024 12:32 PM EST us Jeramy Bernal MD LAB BLOOD ORDERABLES F inal Result [facility] [address] [place] [address], [place] [phone] * (ABNORMAL) Lipid panel with reflex to direct LDL (11/21/2024 12:32 PM EST) Cholesterol 185 0 - 200 mg/dL LAB CHEMISTRY METHOD 11/21/2024 2:43 PM EST [facility] Triglycerides 74 0 - 150 mg/dL LAB CHEMISTRY METHOD 11/21/2024 2:43 PM EST [facility] HDL 52 >=40 mg/dL LAB CHEMISTRY METHOD 11/21/2024 2:43 PM EST [facility] LDL Calculated 118(H) 0 - 100 mg/dL LAB CHEMISTRY METHOD 11/21/2024 2:43 PM [facility] VLDL Cholesterol Yoel 14.8 mg/dL LAB CHEMISTRY METHOD 11/21/2024 2:43 PM EST [facility] Non HDL Chol. (LDL+VLDL) 133 <145 mg/dL LAB CHEMISTRY METHOD 11/21/2024 2:43 PM EST [facility] Chol/HDL Ratio 3.6 0.0 - 4.4 LAB CHEMISTRY METHOD 11/21/2024 2:43 PM [facility] Blood Venous blood specimen / Unknown Venipuncture / Unknown 11/21/2024 12:32 PM EST 11/21/2024 12:32 PM EST Jeramy Bernal MD LAB BLOOD ORDERABLES F inal Result [facility] [address] [place] [address], [place] [phone] * Hemoglobin A1c (11/21/2024 12:32 PM EST) Hemoglobin A1C 5.6 <6.5 % LAB CHEMISTRY METHOD 11/21/2024 9:18 PM EST [facility] Mean Bld Glu Estim. 114 mg/dL LAB CHEMISTRY METHOD 11/21/2024 9:18 PM EST [facility] Blood Venous blood specimen / Unknown Venipuncture / Unknown 11/21/2024 12:32 PM EST 11/21/2024 12:32 PM EST Jeramy Bernal MD LAB BLOOD ORDERABLES F inal Result [facility] [address] [place] [address], documented in this encounter Visit Diagnoses Diagnosis [...] documented as of this encounter Care Teams Service Desk Analyst Relationship Specialty Start Date End Date Jeramy Bernal MD [address] [place] [address] PCP - General Internal Medicine 06/27/22 documented as of this encounter
--- OUTSIDE RECORDS SUMMARY | 2024-11-22 15:42 | XMS_ITS | Clinical Summary ---
Author Organization [facility] Address [address] [place] [address] Phone Care Team Providers Care Activities Specialist Name Role Phone Jeramy Bernal MD Primary [...] 12:00 PM EST Office Visit Adult Medicine [address] [phone] Jeramy Bernal MD Impaired fasting blood sugar (Primary Dx); Elevated blood pressure reading; Screening for lipid disorders; Hypothyroidism, unspecified type; Moderate persistent asthma, unspecified whether complicated 10/13/2024 4:33 PM EST - 10/13/2024 11:59 PM EST Hospital Encounter Radiology Department - [address] [phone] Lipoma of torso Discharge Disposition: Home or Self Care 10/10/2024 2:00 PM EST Office Visit Adult Medicine [address] [phone] Cuca Haddad PA Lipoma of torso (Primary Dx); Moderate persistent asthma, unspecified whether complicated 10/10/2024 Telephone Adult Medicine [address] [phone] Jeramy Bernal MD 10/10/2024 Telephone Adult Medicine [facility] [address] [place] [address] Cuca Haddad PA 09/14/2024 Nurse Triage Adult Medicine [facility] [address] [place], [place] [phone] Jeramy Bernal MD Asthma from Last 3 [...] care for your loved ones. For example, rn child or elderly care for an older adult? [...] 9:45 AM EST Consult General Surgery - [place] [address] [phone] Chip Aguillon MD [address] [address] 08/17/2025 3:00 PM EST Office Visit [facility] Hematology Oncology [address] [place] [phone] Yulia Gusman PA [address] [place] [address] Health Maintenance Due Date Last Done Comments [...] LAB CHEMISTRY METHOD 11/21/2024 2:41 PM EST [facility] Blood Venous blood specimen / Unknown Venipuncture / Unknown 11/21/2024 12:32 PM EST 11/21/2024 12:32 PM EST Jeramy Bernal MD LAB BLOOD ORDERABLES F inal Result [facility] [address] [place] [address], [place] [phone] * Free thyroxine with reflex to free triiodothyronine (11/21/2024 12:32 PM EST) Free T4 1.11 0.70 - 1.80 ng/dL LAB CHEMISTRY METHOD 11/21/2024 3:07 PM EST [facility] Blood Venous blood specimen / Unknown Venipuncture / Unknown 11/21/2024 12:32 PM EST 11/21/2024 12:32 PM EST Jeramy Bernal MD LAB BLOOD ORDERABLES F inal Result [facility] [address] [place] [address], [place] [phone] * (ABNORMAL) Lipid panel with reflex to direct LDL (11/21/2024 12:32 PM EST) [facility] Cholesterol 185 0 - 200 mg/dL LAB CHEMISTRY METHOD 11/21/2024 2:43 PM EST [facility] Triglycerides 74 0 - 150 mg/dL LAB CHEMISTRY METHOD 11/21/2024 2:43 PM EST [facility] HDL 52 >=40 mg/dL LAB CHEMISTRY METHOD 11/21/2024 2:43 PM EST [facility] LDL Calculated 118(H) 0 - 100 mg/dL LAB CHEMISTRY METHOD 11/21/2024 2:43 PM EST [facility] VLDL Cholesterol Yoel 14.8 mg/dL LAB CHEMISTRY METHOD 11/21/2024 2:43 PM EST [facility] Non HDL Chol. (LDL+VLDL) 133 <145 mg/dL LAB CHEMISTRY METHOD 11/21/2024 2:43 PM EST [facility] Chol/HDL Ratio 3.6 0.0 - 4.4 LAB CHEMISTRY METHOD 11/21/2024 2:43 PM EST [facility] Blood Venous blood specimen / Unknown Venipuncture / Unknown 11/21/2024 12:32 PM EST 11/21/2024 12:32 PM EST Jeramy Bernal MD LAB BLOOD ORDERABLES F inal Result [facility] [address] [place] [address], [place] [phone] * (ABNORMAL) CBC auto differential (11/21/2024 12:32 PM EST) [facility] WBC 9.7 4.8 - 10.8 K/mcL LAB HEMETOLOGY METHOD 11/21/2024 2:03 PM [facility] RBC 4.80 3.80 - 4.80 M/mcL LAB HEMETOLOGY METHOD 11/21/2024 2:03 PM [facility] Hemoglobin 12.7 11.5 - 16.0 g/dL LAB HEMETOLOGY METHOD 11/21/2024 2:03 PM [facility] Hematocrit 40.5 35.0 - 47.0 % LAB HEMETOLOGY METHOD 11/21/2024 2:03 PM [facility] MCV 84.7 79.0 - 98.0 FL LAB HEMETOLOGY METHOD 11/21/2024 2:03 PM [facility] MCH 26.6(L) 27.0 - 32.0 pcg LAB HEMETOLOGY METHOD 11/21/2024 2:03 PM [facility] MCHC 31.4(L) 32.0 - 37.0 g/dL LAB HEMETOLOGY METHOD 11/21/2024 2:03 PM [facility] RDW 14.0 11.0 - 15.0 % LAB HEMETOLOGY METHOD 11/21/2024 2:03 PM [facility] Platelets 360 130 - 400 K/mcL LAB HEMETOLOGY METHOD 11/21/2024 2:03 PM [facility] MPV 10.1 7.0 - 11.0 FL LAB HEMETOLOGY METHOD 11/21/2024 2:03 PM [facility] NRBC 0.0 <1.0 % LAB HEMETOLOGY METHOD 11/21/2024 2:03 PM [facility] NRBC Absolute 0.00 <0.10 K/mcL LAB HEMETOLOGY METHOD 11/21/2024 2:03 PM [facility] Neutrophils Relative 70.9 % LAB HEMETOLOGY METHOD 11/21/2024 2:03 PM [facility] Lymphocytes Relative 19.4 % LAB HEMETOLOGY METHOD 11/21/2024 2:03 PM [facility] Monocytes Relative 7.4 % LAB HEMETOLOGY METHOD 11/21/2024 2:03 PM [facility] Eosinophils Relative 1.8 % LAB HEMETOLOGY METHOD 11/21/2024 2:03 PM [facility] Basophils Relative 0.2 % LAB HEMETOLOGY METHOD 11/21/2024 2:03 PM [facility] Immature Granulocytes Relative 0.3 % LAB HEMETOLOGY METHOD 11/21/2024 2:03 PM [facility] Neutrophils Absolute 6.85 1.50 - 7.00 K/mcL LAB HEMETOLOGY METHOD 11/21/2024 2:03 PM [facility] Lymphocytes Absolute 1.87 1.00 - 5.00 K/mcL LAB HEMETOLOGY METHOD 11/21/2024 2:03 PM [facility] Monocytes Absolute 0.71 0.20 - 1.00 K/mcL LAB HEMETOLOGY METHOD 11/21/2024 2:03 PM [facility] Eosinophils Absolute 0.17 0.00 - 0.50 K/mcL LAB HEMETOLOGY METHOD 11/21/2024 2:03 PM [facility] Basophils Absolute 0.02 0.00 - 0.20 K/mcL LAB HEMETOLOGY METHOD 11/21/2024 2:03 PM [facility] Immature Granulocytes Absolute 0.03 0.00 - 0.03 K/mcL LAB HEMETOLOGY METHOD 11/21/2024 2:03 PM [facility] Blood Venous blood specimen / Unknown Venipuncture / Unknown 11/21/2024 12:32 PM EST 11/21/2024 12:32 PM EST Yulia NICHOLAS LAB BLOOD ORDERABLES Final Resul t Performing Organization Address [facility]/ZIP Co de Phone Number [facility] [address] [place] [address], [place] [phone] * Iron and TIBC (11/21/2024 12:32 PM EST) Iron 74 40 - 150 mcg/dL LAB CHEMISTRY METHOD 11/21/2024 2:34 PM EST [facility] TIBC 428 250 - 450 mcg/dL LAB CHEMISTRY METHOD 11/21/2024 2:34 PM EST [facility] Iron Saturation 17 15 - 50 % LAB CHEMISTRY METHOD 11/21/2024 2:34 PM EST [facility] Blood Venous blood specimen / Unknown Venipuncture / Unknown 11/21/2024 12:32 PM EST 11/21/2024 12:32 PM EST Yulia NICHOLAS LAB BLOOD ORDERABLES Final Resul t Performing Organization Address [facility]/ZIP Co de Phone Number [facility] [address] [place] [address], [place] [phone] * Triiodothyronine free (11/21/2024 12:32 PM EST) T3, Free 308 230 - 420 pcg/dL LAB CHEMISTRY METHOD 11/21/2024 3:33 PM EST [facility] Blood Venous blood specimen / Unknown Venipuncture / Unknown 11/21/2024 12:32 PM EST 11/21/2024 12:32 PM EST Jeramy Bernal MD LAB BLOOD ORDERABLES F inal Result Performing Organization Address City/[facility]/ZIP Co de Phone Number [facility] [address] [place] [address], [place] [phone] * Hemoglobin A1c (11/21/2024 12:32 PM EST) Pathologist [facility] Hemoglobin A1C 5.6 <6.5 % LAB CHEMISTRY METHOD 11/21/2024 9:18 PM EST [facility] Mean Bld Glu Estim. 114 mg/dL LAB CHEMISTRY METHOD 11/21/2024 9:18 PM EST [facility] Blood Venous blood specimen / Unknown Venipuncture / Unknown 11/21/2024 12:32 PM EST 11/21/2024 12:32 PM EST us Jeramy Bernal MD LAB BLOOD ORDERABLES F inal Result Performing Organization Address [facility]/ZIP Co de Phone Number [facility] [address] [place] [address], [place] [phone] * Ferritin (11/21/2024 12:32 PM EST) [facility] Ferritin 8 8 - 252 ng/mL LAB CHEMISTRY METHOD 11/21/2024 2:44 PM EST [facility] Blood Venous blood specimen / Unknown Venipuncture / Unknown 11/21/2024 12:32 PM EST 11/21/2024 12:32 PM EST us Yulia NICHOLAS LAB BLOOD ORDERABLES Final Resul t Performing Organization Address [facility]/ZIP Co de Phone Number [facility] [address] [place] [address], [place] [phone] * [place] Abdomen Limited (10/13/2024 4:39 PM [...] Signed Date: 10/14/2024 08:57 ET Workstation ID: [id number] Transcribed By: Self Edit Transcribed Date: 10/14/2024 [...] Signed Date: 10/14/2024 08:57 ET Workstation ID: [id number] Transcribed By: Self Edit Transcribed Date: 10/14/2024 08:56 ET us Cuca NICHOLAS IM US PROCEDURES Final Result from Last 3 Months Insurance Care Teams Activities Specialist Relationship Specialty Start Date End Date Jeramy Bernal MD [address] [place] [address] PCP - General Internal Medicine 06/27/22
--- OUTSIDE RECORDS SUMMARY | 2024-11-22 15:42 | XMS_ITS | Clinical Summary ---
Author Organization [employer] Address [address] [facility] [facility] 7 [place] [address] Care Team Providers Care Shovel Operator Name Role Phone Unavailable Primary Care Provider Unavailabl e Allergies No known active allergies Medications acetaminophen (Tylenol) 500 MG tablet take 1 tablet (500MG) by oral route every 6 hours as needed 12/23/2021 Active amoxicillin (Amoxil) 500 MG capsule take 1 capsule (500MG) by oral route every 8 hours 12/23/2021 Active levothyroxine (Tirosint) 100 MCG capsule Take 1 capsule by mouth at bed time. Active sertraline (Zoloft) 25 MG tablet Take one tablet once everyday. 08/04/2022 Active albuterol (2.5 MG/3ML) 0.083% nebulizer solution 2.5 mg. Active Immunizations Name Administration Dates Next Due DTaP 05/29/1999, 8,07/19/1996,12/02/18 94,1993 DTaP / HiB / IPV 07/26/2010,07/19/1996, 3 HPV, Quadrivalent 03/04/2012,07/26/2010,05/15/20 10 Hep B, Adolescent or Pediatric 1993,1992,1993 MMR 11/08/1997,07/19/1996 Meningococcal MPSV4 03/04/2012,12/02/2005 OPV 11/08/1997, 6,1993,09/03/19 93 PPD Test 07/26/2014 Pneumococcal Polysaccharide PPSV23 06/22/2014 Tdap 12/02/2005 Social History Tobacco Use Types Packs/Day Years Used Date Smoking Tobacco: Never Smokeless Tobacco: Never Tobacco Cessation:Counseling Given: Not Answered Alcohol Use Standard Drinks/Week Comments Yes 0 (1 standard drink = 0.6 oz pur e alcohol) Comments Unknown Sex and Gender Information Value Date Recorded Sex Assigned at Female 08/04/2022 10:14 AM EDT Legal Sex Female 10:14 AM EDT Gender Identity Female 08/04/2022 10:14 AM EDT Sexual Orientation Straight 08/04/2022 10 :14 AM EDT Last Filed Vital Signs Vital Sign Reading Time Taken Comments Blood Pressure 124/82 10/29/2022 1:09 PM EST Pulse 83 10/01/2022 2:40 PM EST Temperature - - Respiratory Rate - - Oxygen Saturation - - Inhaled Oxygen Concentration - - Weight - - Height - - Body Mass Index - - Plan of Treatment Health Maintenance Due Date Last Done Comments Dental Prophylaxis 1993 Depression Screening 1993 HIV Screening 1993 SDOH Screening 1993 Alcohol/Substance Use Screening 2005 Family Planning (PISQ) 2008 Hepatitis C Screening 2011 Pap Smear 2014 Pneumococcal Vaccine: Pediatrics (0 to 5 Years) and At-Risk Patients (6 to 49) Years) (2 of 2 - PCV) 06/22/2015 06/22/2014 DTaP/Tdap/Td Vaccines (7 - Td or Tdap) 07/26/2020 07/26/2010, 12/02/2005, 05/29/1999, Additional history exists Dental Oral Exam 05/18/2023 11/17/2022 Cervical Cancer Screening 2023 HPV/Cotest 2023 Tobacco Screening 11/17/2023 11/17/2022 Dental X-Ray: Bitewings 11/18/2023 11/17/2022 COVID-19 Vaccine (1 - season) 2024 Influenza Vaccine (#1) 2024 Dental X-Ray: Full Mouth 11/18/2025 11/17/2022 Zoster Vaccines (1 of 2) 2043 RSV Patients and Patients Aged 60 years or older (1 - 1-dose 75+ series) 2068 Hepatitis B Vaccines Completed 1993, 1993, 1993 HIB Vaccines Completed 07/26/2010, 07/05, 1993 IPV Vaccines Completed 07/26/2010, 01/1998, 07/19/1996, Additional history exists HPV Vaccines Completed 03/04/2012, 07/06, 05/15/2010 Meningococcal Vaccine Aged Out 03/04/2012, 006 No longer eligible based on patient's age to complete this topic Hepatitis A Vaccines Aged Out No long er eligible based on patient's age to complete this topic RSV under 20 months Aged Out No longe r eligible based on patient's age to complete this topic Rotavirus Vaccines Aged Out No longer eligible based on patient's age to complete this topic Procedures Procedure Name Priority Date/Time Associated Diagnosis Comments INTRAORAL - COMPLETE SERIES OF RADIOGRAPHIC IMAGES Routine 11/17/2022 3:00 PM EST Encounter for dental examination COMPREHENSIVE ORAL EVALUATION - NEW OR ESTABLISHED PATIENT Routine 11/17/2022 3:00 PM EST Encounter for dental examination from Last 3 Months or Most Recently Relevant to Health Maintenance Insurance [facility] MEDICAID STAND ADULT [address] [place] [address]
--- OUTSIDE RECORDS SUMMARY | 2024-11-22 15:42 | XMS_ITS | Encounter Summary ---
Author Organization [facility] Address [address] [place] [address] Phone Care Team Providers Care Business Reporter Name Role Phone Arleth Noel NP Primary Care Provider [phone] Encounter Details Date Type Department Care Team (Late st Contact Info) Description 11/15/2010 Documentation [facility] [place] [address] [place], [place] [id number] Family Medicine, Physician [address] [place], [place] [address] Social History Tobacco Use Types Packs/Day Years [...] filedocumented in this encounter Care Teams Business Reporter Relationship Specialty Start Date End Date Arleth Noel NP PCP - General 05/15/17 documented as of this encounter
--- OUTSIDE RECORDS SUMMARY | 2024-11-22 15:42 | XMS_ITS | Encounter Summary ---
Author Organization [facility] Address [address] [place] [address] Phone Care Team Providers Care Hand Filer Balance Wheel Name Role Phone Arleth Noel NP Primary Care Provider [phone] Encounter Details Date Type Department Care Team (Late st Contact Info) Description 07/27/2012 Documentation [facility] [place] [address] [place], [place] [phone] Family Medicine, Physician [address] [place], [place] [address] Social History Tobacco Use Types Packs/Day Years [...] on filedocumented in this encounter Care Teams Hand Filer Balance Wheel Relationship Specialty Start Date End Date Arleth Noel NP PCP - General 05/15/17 documented as of this encounter
== END 2024-11-22 13:33 | disposition home or self-care (01) ==
LOC: HO.LAB 13:32
PROVIDERS: PCP Internal Medicine; Visit Provider Advanced Practice Midwife
DX: Z13.89 Encounter for screening for other disorder (principal)

== ENCOUNTER 2024-11-22 18:09 | Outpatient (REF) | payer OTHER, SELFPAY ==
--- OUTSIDE RECORDS SUMMARY | 2024-11-22 18:11 | XMS_ITS | Encounter Summary ---
Author Organization [facility] Address [address] [place] [address] Phone Care Team Providers Care Metal Neutralizer Name Role Phone Arleth Noel NP Primary Care Provider [phone] Encounter Details Date Type Department Care Team (Late st Contact Info) Description 02/03/2012 [place] [facility] [place] [address] [place], [place] [phone] Family Medicine, Physician [address] [place], [place] 217311 Social History Tobacco Use Types Packs/Day Years [...] on filedocumented in this encounter Care Teams Metal Neutralizer Relationship Specialty Start Date End Date Arleth Noel NP PCP - General 05/15/17 documented as of this encounter
--- OUTSIDE RECORDS SUMMARY | 2024-11-22 18:11 | XMS_ITS | Encounter Summary ---
Author Organization [facility] Address [address] [place] [address] Phone Care Team Providers Care Continuous Weld Pipe Mill Supervisor Name Role Phone Arleth Noel NP Primary Care Provider [phone] Encounter Details Date Type Department Care Team (Late st Contact Info) Description 11/03/2011 Documentation [facility] [place] [address] [place], [place] [phone] Family Medicine, Physician [address] [place], [place] [address]381 Social History Tobacco Use Types Packs/Day Years [...] on filedocumented in this encounter Care Teams Continuous Weld Pipe Mill Supervisor Relationship Specialty Start Date End Date Arleth Noel NP PCP - General 05/15/17 documented as of this encounter
--- OUTSIDE RECORDS SUMMARY | 2024-11-22 18:11 | XMS_ITS | Encounter Summary ---
Author Organization [facility] Address [address] [place] [address] Phone Care Team Providers Care Pediatric Psychiatrist Name Role Phone Arleth Noel NP Primary Care Provider [phone] Encounter Details Date Type Department Care Team (Late st Contact Info) Description 02/04/2012 Documentation [facility] [place] [address] [place], [place] [phone] Family Medicine, Physician [address] [place], [place] [address] Social History Tobacco Use Types Packs/Day Years [...] on filedocumented in this encounter Care Teams Pediatric Psychiatrist Relationship Specialty Start Date End Date Arleth Noel NP PCP - General 05/15/17 documented as of this encounter
--- OUTSIDE RECORDS SUMMARY | 2024-11-22 18:12 | XMS_ITS | Encounter Summary ---
Author Organization [employer] Address [address] [place] [address] Care Team Providers Care Linemarker Name Role Phone Jeramy Bernal MD Primary Care Provider Reason for Visit * Reason Comments Follow-up Pre diabetic concern Encounter Details Date Type Department Care Team ([facility] st Contact Info) Description 11/21/2024 12:00 PM EST Office Visit Adult Medicine [facility] [address] [place] [address] Jeramy Bernal MD [address] [place] [address] Impaired fasting blood sugar (Primary Dx); Elevated [...] care for your loved ones. For example, childcare aide or elderly care for an older adult? [...] file Social History Narrative Works at the [employer] as a teacher. Lives alone at [...] screening lipids as well. Patient follows with [facility] endocrinology. On levothyroxine. Check TSH. She [...] 9:45 AM EST Consult General Surgery - [place] [address] [phone] Chip Aguillon MD [address] [address] 08/17/2025 3:00 PM EST Office Visit [facility] Hematology Oncology [address] [place] [phone] Yulia Gusman PA [address] [place] [address] documented as of this encounter Results * (ABNORMAL) Thyroid stimulating hormone with reflex to free t4 and free t3 (11/21/2024 12:32 PM EST) TSH 0.08(L) 0.40 - 4.00 mcIU/mL LAB CHEMISTRY METHOD 11/21/2024 2:41 PM EST [facility] Blood Venous blood specimen / Unknown Venipuncture / Unknown 11/21/2024 12:32 PM EST 11/21/2024 12:32 PM EST us Jeramy Bernal MD LAB BLOOD ORDERABLES F inal Result [facility] [address] [place] [address], [place] [phone] * (ABNORMAL) Lipid panel with reflex to direct LDL (11/21/2024 12:32 PM EST) Cholesterol 185 0 - 200 mg/dL LAB CHEMISTRY METHOD 11/21/2024 2:43 PM EST [facility] Triglycerides 74 0 - 150 mg/dL LAB CHEMISTRY METHOD 11/21/2024 2:43 PM EST [facility] HDL 52 >=40 mg/dL LAB CHEMISTRY METHOD 11/21/2024 2:43 PM EST [facility] LDL Calculated 118(H) 0 - 100 mg/dL LAB CHEMISTRY METHOD 11/21/2024 2:43 PM [facility] VLDL Cholesterol Yoel 14.8 mg/dL LAB CHEMISTRY METHOD 11/21/2024 2:43 PM EST [facility] Non HDL Chol. (LDL+VLDL) 133 <145 mg/dL LAB CHEMISTRY METHOD 11/21/2024 2:43 PM EST [facility] Chol/HDL Ratio 3.6 0.0 - 4.4 LAB CHEMISTRY METHOD 11/21/2024 2:43 PM [facility] Blood Venous blood specimen / Unknown Venipuncture / Unknown 11/21/2024 12:32 PM EST 11/21/2024 12:32 PM EST Jeramy Bernal MD LAB BLOOD ORDERABLES F inal Result [facility] [address] [place] [address], [place] [phone] * Hemoglobin A1c (11/21/2024 12:32 PM EST) Hemoglobin A1C 5.6 <6.5 % LAB CHEMISTRY METHOD 11/21/2024 9:18 PM EST [facility] Mean Bld Glu Estim. 114 mg/dL LAB CHEMISTRY METHOD 11/21/2024 9:18 PM EST [facility] Blood Venous blood specimen / Unknown Venipuncture / Unknown 11/21/2024 12:32 PM EST 11/21/2024 12:32 PM EST Jeramy Bernal MD LAB BLOOD ORDERABLES F inal Result [facility] [address] [place] [address], documented in this encounter Visit Diagnoses Diagnosis [...] documented as of this encounter Care Teams Linemarker Relationship Specialty Start Date End Date Jeramy Bernal MD [address] [place] [address] PCP - General Internal Medicine 06/27/22 documented as of this encounter
--- OUTSIDE RECORDS SUMMARY | 2024-11-22 18:12 | XMS_ITS | Encounter Summary ---
Author Organization [facility] Address [address] [place] [address] Phone Care Team Providers Care Fish Packer Name Role Phone Arleth Noel NP Primary Care Provider [phone] Encounter Details Date Type Department Care Team (Late st Contact Info) Description 05/21/2017 Conversion Encounter [facility] - [address] [address] Social History Tobacco Use Types Packs/Day Years [...] on filedocumented in this encounter Care Teams Fish Packer Relationship Specialty Start Date End Date Arleth Noel NP PCP - General 05/15/17 documented as of this encounter
--- OUTSIDE RECORDS SUMMARY | 2024-11-22 18:12 | XMS_ITS | Encounter Summary ---
Author Organization [facility] Address [address] [place] [address] Phone Care Team Providers Care Healthcare Interpreter Name Role Phone Arleth Noel NP Primary Care Provider [phone] Encounter Details Date Type Department Care Team (Late st Contact Info) Description 07/19/[address] [facility] [place] [address] [place], [place] [phone] Family Medicine, Physician [address] [place], [place] [address] Social History Tobacco Use Types Packs/Day Years [...] on filedocumented in this encounter Care Teams Healthcare Interpreter Relationship Specialty Start Date End Date Arleth Noel NP PCP - General 05/15/17 documented as of this encounter
--- OUTSIDE RECORDS SUMMARY | 2024-11-22 18:12 | XMS_ITS | Encounter Summary ---
Author Organization [facility] Address [address] [place] [address] Phone Care Team Providers Care Hand Box Folder Name Role Phone Arleth Noel NP Primary Care Provider [phone] Encounter Details Date Type Department Care Team (Late st Contact Info) Description 05/15/2010 Documentation [facility] [address] [place], [place] [phone] Family Medicine, Physician [address] [place], [place] [address] Social History Tobacco Use Types Packs/Day Years [...] filedocumented in this encounter Care Teams Hand Box Folder Relationship Specialty Start Date End Date Arleth Noel NP PCP - General 05/15/17 documented as of this encounter
--- OUTSIDE RECORDS SUMMARY | 2024-11-22 18:12 | XMS_ITS | Encounter Summary ---
Author Organization [facility] Address [address] [place] [address] Phone Care Team Providers Care Quality Assurance Inspector Name Role Phone Arleth Noel NP Primary Care Provider [phone] Encounter Details Date Type Department Care Team (Late st Contact Info) Description 07/27/2012 Documentation [facility] [place] [address] [place], [place] [phone] Family Medicine, Physician [address] [place], [place] [address] Social History Tobacco Use Types Packs/Day Years [...] on filedocumented in this encounter Care Teams Quality Assurance Inspector Relationship Specialty Start Date End Date Arleth Noel NP PCP - General 05/15/17 documented as of this encounter
--- OUTSIDE RECORDS SUMMARY | 2024-11-22 18:12 | XMS_ITS | Encounter Summary ---
Author Organization [facility] Address [address] [place] [address] Phone Care Team Providers Care Coordinator Of Rehabilitation Services Name Role Phone Arleth Noel NP Primary Care Provider [phone] Encounter Details Date Type Department Care Team (Late st Contact Info) Description 02/11/2012 Documentation [facility] [place] Family Medicine [address] [place], [place] [phone] Family Medicine, Physician [address] [place], [place] 689261 Social History Tobacco Use Types Packs/Day Years [...] on filedocumented in this encounter Care Teams Coordinator Of Rehabilitation Services Relationship Specialty Start Date End Date Arleth Noel NP PCP - General 05/15/17 documented as of this encounter
--- OUTSIDE RECORDS SUMMARY | 2024-11-22 18:12 | XMS_ITS | Clinical Summary ---
Author Organization [employer] Address [address] [facility] 7 [place] [address] Care Team Providers Care Digital Account Coordinator Name Role Phone Unavailable Primary Care Provider [...] Most Recently Relevant to Health Maintenance Insurance [facility] MEDICAID STAND ADULT [address] [place] [address]
--- OUTSIDE RECORDS SUMMARY | 2024-11-22 18:12 | XMS_ITS | Encounter Summary ---
Author Organization [facility] Address [address] [place] [address] Phone Care Team Providers Care Temperature Regulator Pyrometer Name Role Phone Arleth Noel NP Primary Care Provider Encounter Details Date Type Department Care Team (Late st Contact Info) Description 04/06/2012 Documentation [facility] [place] [address] [place], [place] [phone] Family Medicine, Physician [address] [place], [place] 366541 Social History Tobacco Use Types Packs/Day Years [...] on filedocumented in this encounter Care Teams Temperature Regulator Pyrometer Relationship Specialty Start Date End Date Arleth Noel NP PCP - General 05/15/17 documented as of this encounter
--- OUTSIDE RECORDS SUMMARY | 2024-11-22 18:12 | XMS_ITS | Encounter Summary ---
Author Organization [facility] Address [address] [place] [address] Phone Care Team Providers Care Hand Screen Printer Name Role Phone Arleth Noel NP Primary Care Provider [phone] Encounter Details Date Type Department Care Team (Late st Contact Info) Description 09/20/2012 Documentation [facility] [place] Family Medicine [address] [place], [place] [phone] Family Medicine, Physician [address] [place], [place] 240041 Social History Tobacco Use Types Packs/Day Years [...] filedocumented in this encounter Care Teams Hand Screen Printer Relationship Specialty Start Date End Date Arleth Noel NP PCP - General 05/15/17 documented as of this encounter
--- OUTSIDE RECORDS SUMMARY | 2024-11-22 18:12 | XMS_ITS | Clinical Summary ---
Author Organization [facility] Address [address] [place] [address] Phone Care Team Providers Care Unloading Checker Name Role Phone Arleth Noel NP Primary Care Provider [phone] Immunizations Immunization Administration Dates Next Due DTaP [...] complete this topic Procedures * Due to [place] state law, this organization might not be sharing sensitive test results. Procedure Name Priority Date/Time Associated Diagnosis Comments CHLAMYDIA AND GONORRHEA, AMPLIFIED Routine 09/17/2012 12:35 PM EST from Last 3 Months or Most Recently Relevant to Health Maintenance Results * Due to [place] state law, this organization might not be sharing sensitive test results. * Chlamydia and Gonorrhoea, Amplified (09/17/2012 12:35 PM EST) URINE GC AMP PROBE NEGATIVE [facility] Comment: NO NEISSERIA GONORRHOEAE RNA DETECTED IN THIS PATIENT'S SAMPLE. ? (REFERENCE RANGE/NORMAL VALUE: NOT DETECTED) ? NOTE: THIS TEST USES MEDICAL LIBRARY ASSISTANT MEDIATED AMPLIFICATION METHOD TO DETECT rRNA FROM [...] OTHER AGENTS. URINE CHLAMYDIA AMP PROBE NEGATIVE [facility] Comment: NO CHLAMYDIA TRACHOMATIS RNA DETECTED IN THIS PATIENT'S SAMPLE. ? (REFERENCE RANGE/NORMAL VALUE: NOT DETECTED) 09/17/2012 12:3 5 PM EST Narrative [facility] - 09/17/2012 12:35 PM EST URINE CHLAMYDIA GC AMP PROBE Marisa Vincent DO LAB MICROBIOLOGY - GENERAL ORDER MARILYN Final Result [facility] [address] [place] [address], from Last 3 Months or Most Recently Relevant to Health Maintenance Care Teams Unloading Checker Relationship Specialty Start Date End Date Arleth Noel NP PCP - General 05/15/17
--- OUTSIDE RECORDS SUMMARY | 2024-11-22 18:12 | XMS_ITS | Encounter Summary ---
Author Organization [facility] Address [address] [place] [address] Phone Care Team Providers Care Gas Tester Name Role Phone Arleth Noel NP Primary Care Provider [phone] Encounter Details Date Type Department Care Team (Late st Contact Info) Description 10/07/2011 Documentation [facility] [place] Family Medicine [address] [place], [place] [phone] Family Medicine, Physician [address] [place], [place] 562971 Social History Tobacco Use Types Packs/Day Years [...] on filedocumented in this encounter Care Teams Gas Tester Relationship Specialty Start Date End Date Arleth oNel NP PCP - General 05/15/17 documented as of this encounter
--- OUTSIDE RECORDS SUMMARY | 2024-11-22 18:12 | XMS_ITS | Encounter Summary ---
Author Organization [facility] Address [address] [place] [address] Phone Care Team Providers Care Cosmetology Professor Name Role Phone Arleth Noel NP Primary Care Provider [phone] Encounter Details Date Type Department Care Team (Late st Contact Info) Description 10/27/2012 Documentation [facility] [place] Family Medicine [address] [place], [place] [phone] Family Medicine, Physician [address] [place], [place] 835181 Social History Tobacco Use Types Packs/Day Years [...] on filedocumented in this encounter Care Teams Cosmetology Professor Relationship Specialty Start Date End Date Arleth Noel NP PCP - General 05/15/17 documented as of this encounter
--- OUTSIDE RECORDS SUMMARY | 2024-11-22 18:12 | XMS_ITS | Data Portability ---
Author Organization [facility] [address] Address [address] [place] [address] Assessment No assessment recorded. Plan of Treatment Reminders Order Date Submit Date Provider Last Modified By Organization Details Last Modified Time Details Appointments None recorded. Lab None recorded. Referral None recorded. Procedures None recorded. Surgeries None recorded. Imaging XR, knee, 3 view 2022 023 [facility], [address] [place] [address], [address], 3 20:38:26 Medication Orders naproxen 500 mg tablet 2022 023 [place] [id number], [address] [place], [address], 17:42:12 Patient TargetsNo targets recorded. Patient Instructions Encounter Date Encounter Id Patient Instructions Last Modified By Organization Details Last Modified Time 06/29/2023 [id number] learning about rice (rest, ice, compression, and elevation) [email or web address] Not available 06/29/2023 17:42:01 knee pain or injury: care instructions Not available 06/29/2023 17:42:01 MUSCULOSKELETAL- K NEE: Inspection of the knee shows no erythema, ecchymosis, or swelling. FROM was full/limited Palpation of the calf and popliteal fossa showed no mass or tenderness. Palpation of patella was nontender. Palpation of medial and lateral joint lines were nontender. Patella ? g rind-test? with NO crepitus. Valgus and Varus testing [...] 3 view No observ ation record ed. [email or web address] [facility] [address] [place], [address], 06/30/2023 12:42:11 Result Notes None recorded. Problems Name Problem SNOMED Code Status Onset Date Resolution Date Notes Provider Name and Address Organization Details Recorded Time Anxiety 13200186 Active MAYA MINEO null, PA - [facility] 3 17:32:28 Hypothermia 467257039 Active MAYA MINEO null, PA - [facility] 3 17:32:40 Asthma 906979759 Active MAYA MINEO null, PA - [facility] 3 17:32:48 Problem Notes None recorded. Procedures Surgical History None recorded. Imaging Results Imaging Date Name Status LastModified by Organiz ation Details LastModified Time 06/29/2023 XR, knee, 3 view completed [email or web address] [facility] [address] [place], [address], 06/30/2023 12:42:11 Procedure Notes None recorded. Medical [...] and Address Organization Details Last Updated DateTime 3 162.56 cm 31.6 kg/m2 86249 g 98 % 98 % 77 /min 18 /min 98.3 [degF] 142 mm[Hg] 84 mm[Hg] MAYA BROOKS PA - [facility] 18:03:22 Social History Question Answer Notes LastModified by Organizat ion Details LastModified Time Tobacco Smoking Status Never Smoker MAYA BROOKS opal PA - [facility] 06/29/2023 17:33:58 What Is Your [...] SNOMED-CT Code Diagnosis ICD10 Code Diagnosis Note [id number] [address] [address] 06/17/2022 09:03:12 06/17/2022 09:28:19 [id number] [address] [address] [address] 06/27/2021 10:24:48 06/27/2021 13:20:59 [id number] [place] [address] [address] [place] [address] 06/29/2023 16:11:23 06/29/2023 18:15:24 Pain of left knee joint 6395342949 51896 M25.562 Health Concerns Section Related Observation LastModified by Organization Richard ls LastModified Time None Recorded Concern Status LastModified by Organization Details LastModified Time None Recorded Advance Directives Directive None Recorded Payers Encounter Date Sequence Insurance Name Policy Number Policy Delarosa Covered Member ID Delarosa Member ID Guarantor Name 06/27/2021 1 [facility] (MEDICAID REPLACEMENT - HMO) LEA Mancusoe Cannon [id number] Dianese Cannon 06/17/2022 1 [facility] (MEDICAID REPLACEMENT - HMO) CARLIYAMARTINA Dianese Cannon [id number] Dianese Cannon 06/29/2023 1 [facility] (MEDICAID REPLACEMENT - HMO) CARLIYAMARTINA Dianese Cannon [id number] Dianese Cannon Notes Date Note Type Note [...] Maza NP [address] [place], [address], [place] - [facility] 06/29/2023 18:14:31 OBGyn Episode No OBEpisode recorded.
--- OUTSIDE RECORDS SUMMARY | 2024-11-22 18:12 | XMS_ITS | Encounter Summary ---
Author Organization [facility] Address [address] [place] [address] Phone Care Team Providers Care Ppa Teacher Name Role Phone Arleth Noel NP Primary Care Provider [phone] Encounter Details Date Type Department Care Team (Late st Contact Info) Description 11/15/2010 Documentation [facility] [place] [address] [place], [place] [phone] Family Medicine, Physician [address] [place], [place] 976641 Social History Tobacco Use Types Packs/Day Years [...] on filedocumented in this encounter Care Teams Ppa Teacher Relationship Specialty Start Date End Date Arleth Noel NP PCP - General 05/15/17 documented as of this encounter
--- OUTSIDE RECORDS SUMMARY | 2024-11-22 18:12 | XMS_ITS | Encounter Summary ---
Author Organization [facility] Address [address] [place] [address] Phone Care Team Providers Care Paver Installer Name Role Phone Arleth Noel NP Primary Care Provider [phone] Encounter Details Date Type Department Care Team (Late st Contact Info) Description 10/11/2012 Documentation [facility] [place] Family Medicine [address] [place], [place] 8162[address] Family Medicine, Physician [address] [place], [place] 080431 Social History Tobacco Use Types Packs/Day Years [...] on filedocumented in this encounter Care Teams Paver Installer Relationship Specialty Start Date End Date Arleth Noel NP PCP - General 05/15/17 documented as of this encounter
--- OUTSIDE RECORDS SUMMARY | 2024-11-22 18:12 | XMS_ITS | Encounter Summary ---
Author Organization [facility] Address [address] [place] [address] Phone Care Team Providers Care Eligibility Worker Name Role Phone Arleth Noel NP Primary Care Provider Encounter Details Date Type Department Care Team (Late st Contact Info) Description 02/12/2010 Documentation [facility] Family Medicine [address] [place] [address] Family Medicine, Physician [address] [place], [place] 594091 Social History Tobacco Use Types Packs/Day Years [...] on filedocumented in this encounter Care Teams Eligibility Worker Relationship Specialty Start Date End Date Arleth Noel NP PCP - General 05/15/17 documented as of this encounter
--- OUTSIDE RECORDS SUMMARY | 2024-11-22 18:12 | XMS_ITS | Clinical Summary ---
Author Organization [facility] Address [address] [place] [address] Phone Care Team Providers Care Autocad Name Role Phone Jeramy Bernal MD Primary [...] 12:00 PM EST Office Visit Adult Medicine [address] [phone] Jeramy Bernal MD Impaired fasting blood sugar (Primary Dx); Elevated blood pressure reading; Screening for lipid disorders; Hypothyroidism, unspecified type; Moderate persistent asthma, unspecified whether complicated 10/13/2024 4:33 PM EST - 10/13/2024 11:59 PM EST Hospital Encounter Radiology Department - [address] [phone] Lipoma of torso Discharge Disposition: Home or Self Care 10/10/2024 2:00 PM EST Office Visit Adult Medicine [address] [phone] Cuca Haddad PA Lipoma of torso (Primary Dx); Moderate persistent asthma, unspecified whether complicated 10/10/2024 Telephone Adult Medicine [address] [phone] Jeramy Bernal MD 10/10/2024 Telephone Adult Medicine [facility] [address] [place] [address] Cuca Haddad PA 09/14/2024 Nurse Triage Adult Medicine [facility] [address] [place], [place] [phone] Jeramy Bernal MD Asthma from Last 3 [...] for your loved ones. For example, child & adolescent psychiatrist or elderly care for an older adult? [...] 9:45 AM EST Consult General Surgery - [place] [address] [phone] Chip Aguillon MD [address] [address] 08/17/2025 3:00 PM EST Office Visit [facility] Hematology Oncology [address] [place] [phone] Yulia Gusman PA [address] [place] [address] Health Maintenance Due Date Last Done Comments [...] LAB CHEMISTRY METHOD 11/21/2024 2:41 PM EST [facility] Blood Venous blood specimen / Unknown Venipuncture / Unknown 11/21/2024 12:32 PM EST 11/21/2024 12:32 PM EST Jeramy Bernal MD LAB BLOOD ORDERABLES F inal Result [facility] [address] [place] [address], [place] [phone] * Free thyroxine with reflex to free triiodothyronine (11/21/2024 12:32 PM EST) Free T4 1.11 0.70 - 1.80 ng/dL LAB CHEMISTRY METHOD 11/21/2024 3:07 PM EST [facility] Blood Venous blood specimen / Unknown Venipuncture / Unknown 11/21/2024 12:32 PM EST 11/21/2024 12:32 PM EST Jeramy Bernal MD LAB BLOOD ORDERABLES F inal Result [facility] [address] [place] [address], [place] [phone] * (ABNORMAL) Lipid panel with reflex to direct LDL (11/21/2024 12:32 PM EST) [facility] Cholesterol 185 0 - 200 mg/dL LAB CHEMISTRY METHOD 11/21/2024 2:43 PM EST [facility] Triglycerides 74 0 - 150 mg/dL LAB CHEMISTRY METHOD 11/21/2024 2:43 PM EST [facility] HDL 52 >=40 mg/dL LAB CHEMISTRY METHOD 11/21/2024 2:43 PM EST [facility] LDL Calculated 118(H) 0 - 100 mg/dL LAB CHEMISTRY METHOD 11/21/2024 2:43 PM EST [facility] VLDL Cholesterol Yoel 14.8 mg/dL LAB CHEMISTRY METHOD 11/21/2024 2:43 PM EST [facility] Non HDL Chol. (LDL+VLDL) 133 <145 mg/dL LAB CHEMISTRY METHOD 11/21/2024 2:43 PM EST [facility] Chol/HDL Ratio 3.6 0.0 - 4.4 LAB CHEMISTRY METHOD 11/21/2024 2:43 PM EST [facility] Blood Venous blood specimen / Unknown Venipuncture / Unknown 11/21/2024 12:32 PM EST 11/21/2024 12:32 PM EST Jeramy Bernal MD LAB BLOOD ORDERABLES F inal Result [facility] [address] [place] [address], [place] [phone] * (ABNORMAL) CBC auto differential (11/21/2024 12:32 PM EST) [facility] WBC 9.7 4.8 - 10.8 K/mcL LAB HEMETOLOGY METHOD 11/21/2024 2:03 PM [facility] RBC 4.80 3.80 - 4.80 M/mcL LAB HEMETOLOGY METHOD 11/21/2024 2:03 PM [facility] Hemoglobin 12.7 11.5 - 16.0 g/dL LAB HEMETOLOGY METHOD 11/21/2024 2:03 PM [facility] Hematocrit 40.5 35.0 - 47.0 % LAB HEMETOLOGY METHOD 11/21/2024 2:03 PM [facility] MCV 84.7 79.0 - 98.0 FL LAB HEMETOLOGY METHOD 11/21/2024 2:03 PM [facility] MCH 26.6(L) 27.0 - 32.0 pcg LAB HEMETOLOGY METHOD 11/21/2024 2:03 PM [facility] MCHC 31.4(L) 32.0 - 37.0 g/dL LAB HEMETOLOGY METHOD 11/21/2024 2:03 PM [facility] RDW 14.0 11.0 - 15.0 % LAB HEMETOLOGY METHOD 11/21/2024 2:03 PM [facility] Platelets 360 130 - 400 K/mcL LAB HEMETOLOGY METHOD 11/21/2024 2:03 PM [facility] MPV 10.1 7.0 - 11.0 FL LAB HEMETOLOGY METHOD 11/21/2024 2:03 PM [facility] NRBC 0.0 <1.0 % LAB HEMETOLOGY METHOD 11/21/2024 2:03 PM [facility] NRBC Absolute 0.00 <0.10 K/mcL LAB HEMETOLOGY METHOD 11/21/2024 2:03 PM [facility] Neutrophils Relative 70.9 % LAB HEMETOLOGY METHOD 11/21/2024 2:03 PM [facility] Lymphocytes Relative 19.4 % LAB HEMETOLOGY METHOD 11/21/2024 2:03 PM [facility] Monocytes Relative 7.4 % LAB HEMETOLOGY METHOD 11/21/2024 2:03 PM [facility] Eosinophils Relative 1.8 % LAB HEMETOLOGY METHOD 11/21/2024 2:03 PM [facility] Basophils Relative 0.2 % LAB HEMETOLOGY METHOD 11/21/2024 2:03 PM [facility] Immature Granulocytes Relative 0.3 % LAB HEMETOLOGY METHOD 11/21/2024 2:03 PM [facility] Neutrophils Absolute 6.85 1.50 - 7.00 K/mcL LAB HEMETOLOGY METHOD 11/21/2024 2:03 PM [facility] Lymphocytes Absolute 1.87 1.00 - 5.00 K/mcL LAB HEMETOLOGY METHOD 11/21/2024 2:03 PM [facility] Monocytes Absolute 0.71 0.20 - 1.00 K/mcL LAB HEMETOLOGY METHOD 11/21/2024 2:03 PM [facility] Eosinophils Absolute 0.17 0.00 - 0.50 K/mcL LAB HEMETOLOGY METHOD 11/21/2024 2:03 PM [facility] Basophils Absolute 0.02 0.00 - 0.20 K/mcL LAB HEMETOLOGY METHOD 11/21/2024 2:03 PM [facility] Immature Granulocytes Absolute 0.03 0.00 - 0.03 K/mcL LAB HEMETOLOGY METHOD 11/21/2024 2:03 PM [facility] Blood Venous blood specimen / Unknown Venipuncture / Unknown 11/21/2024 12:32 PM EST 11/21/2024 12:32 PM EST Yulia NICHOLAS LAB BLOOD ORDERABLES Final Resul t Performing Organization Address [facility]/ZIP Co de Phone Number [facility] [address] [place] [address], [place] [phone] * Iron and TIBC (11/21/2024 12:32 PM EST) Iron 74 40 - 150 mcg/dL LAB CHEMISTRY METHOD 11/21/2024 2:34 PM EST [facility] TIBC 428 250 - 450 mcg/dL LAB CHEMISTRY METHOD 11/21/2024 2:34 PM EST [facility] Iron Saturation 17 15 - 50 % LAB CHEMISTRY METHOD 11/21/2024 2:34 PM EST [facility] Blood Venous blood specimen / Unknown Venipuncture / Unknown 11/21/2024 12:32 PM EST 11/21/2024 12:32 PM EST Yulia NICHOLAS LAB BLOOD ORDERABLES Final Resul t Performing Organization Address [facility]/ZIP Co de Phone Number [facility] [address] [place] [address], [place] [phone] * Triiodothyronine free (11/21/2024 12:32 PM EST) T3, Free 308 230 - 420 pcg/dL LAB CHEMISTRY METHOD 11/21/2024 3:33 PM EST [facility] Blood Venous blood specimen / Unknown Venipuncture / Unknown 11/21/2024 12:32 PM EST 11/21/2024 12:32 PM EST Jeramy Bernal MD LAB BLOOD ORDERABLES F inal Result Performing Organization Address City/[facility]/ZIP Co de Phone Number [facility] [address] [place] [address], [place] [phone] * Hemoglobin A1c (11/21/2024 12:32 PM EST) Pathologist [facility] Hemoglobin A1C 5.6 <6.5 % LAB CHEMISTRY METHOD 11/21/2024 9:18 PM EST [facility] Mean Bld Glu Estim. 114 mg/dL LAB CHEMISTRY METHOD 11/21/2024 9:18 PM EST [facility] Blood Venous blood specimen / Unknown Venipuncture / Unknown 11/21/2024 12:32 PM EST 11/21/2024 12:32 PM EST us Jeramy Bernal MD LAB BLOOD ORDERABLES F inal Result Performing Organization Address [facility]/ZIP Co de Phone Number [facility] [address] [place] [address], [place] [phone] * Ferritin (11/21/2024 12:32 PM EST) [facility] Ferritin 8 8 - 252 ng/mL LAB CHEMISTRY METHOD 11/21/2024 2:44 PM EST [facility] Blood Venous blood specimen / Unknown Venipuncture / Unknown 11/21/2024 12:32 PM EST 11/21/2024 12:32 PM EST us Yulia NICHOLAS LAB BLOOD ORDERABLES Final Resul t Performing Organization Address [facility]/ZIP Co de Phone Number [facility] [address] [place] [address], [place] [phone] * [place] Abdomen Limited (10/13/2024 4:39 PM [...] Signed Date: 10/14/2024 08:57 ET Workstation ID: [id number] Transcribed By: Self Edit Transcribed Date: 10/14/2024 [...] Signed Date: 10/14/2024 08:57 ET Workstation ID: [id number] Transcribed By: Self Edit Transcribed Date: 10/14/2024 08:56 ET us Cuca NICHOLAS IM US PROCEDURES Final Result from Last 3 Months Insurance Care Teams Autocad Relationship Specialty Start Date End Date Jeramy Bernal MD [address] [place] [address] PCP - General Internal Medicine 06/27/22
--- OUTSIDE RECORDS SUMMARY | 2024-11-22 18:12 | XMS_ITS | Encounter Summary ---
Author Organization [facility] Address [address] [place] [address] Phone Care Team Providers Care Commercial Hvac Service Technician Name Role Phone Arleth Noel NP Primary Care Provider [phone] Encounter Details Date Type Department Care Team (Late st Contact Info) Description 10/07/2011 Documentation [facility] [place] Family Medicine [address] [place], [place] [phone] Family Medicine, Physician [address] [place], [place] [address] Social History Tobacco Use Types Packs/Day Years [...] on filedocumented in this encounter Care Teams Commercial Hvac Service Technician Relationship Specialty Start Date End Date Arleth Noel NP PCP - General 05/15/17 documented as of this encounter
--- OUTSIDE RECORDS SUMMARY | 2024-11-22 18:12 | XMS_ITS | Clinical Summary ---
Author Organization [facility] Address [address] [place] [address] Care Team Providers Care Information Delivery Analyst Name Role Phone Jeramy Bernal Primary Care [...] Group Subscriber ID Effective Dates Phone Address [facility] [id number] 2023-Present [address] [facility] [address] [place] [address] HMO Care Teams Information Delivery Analyst Relationship Specialty Start Date End Date Jeramy Bernal MBBS [address] [place] [address] PCP - General Internal Medicine 03/25/23
--- OUTSIDE RECORDS SUMMARY | 2024-11-22 18:12 | XMS_ITS | Encounter Summary ---
Author Organization [facility] Address [address] [place] [address] Phone Care Team Providers Care Clipman Name Role Phone Arleth Noel NP Primary Care Provider [phone] Encounter Details Date Type Department Care Team (Late st Contact Info) Description 04/09/2012 Documentation [facility] [place] Family Medicine [address] [place], [place] [phone] Family Medicine, Physician [address] [place], [place] [address] Social History Tobacco Use Types Packs/Day Years [...] on filedocumented in this encounter Care Teams Clipman Relationship Specialty Start Date End Date Arleth Noel NP PCP - General 05/15/17 documented as of this encounter
--- OUTSIDE RECORDS SUMMARY | 2024-11-22 18:12 | XMS_ITS | Encounter Summary ---
Author Organization [employer] Address [address] [place] [address] Care Team Providers Care Die Try Out Worker Stamping Name Role Phone Jeramy Bernal MD Primary Care Provider Encounter Details Date Type Department Care Team (Late st Contact Info) Description 10/10/2024 Telephone Adult Medicine [facility] [address] [place] [address] Jeramy Bernal MD [address] [place] [address] Social History Tobacco Use Types Packs/Day Years [...] there are any concerns. She spoke to [facility] documented in this encounter Plan of Treatment Upcoming Encounters Date Type Department Care Team (Late st Contact Info) Description 11/25/2024 9:45 AM EST Consult General Surgery - [place] [address] [phone] Chip Aguillon MD [address] [address] 08/17/2025 3:00 PM EST Office Visit [facility] [address] [place] [phone] Yulia Gusman PA [address] [place] [address] documented as of this encounter Visit Diagnoses Not on filedocumented in this encounter Care Teams Die Try Out Worker Stamping Relationship Specialty Start Date End Date Jeramy Bernal MD [address] [place] [address] PCP - General Internal Medicine 06/27/22 documented as of this encounter
--- OUTSIDE RECORDS SUMMARY | 2024-11-22 18:12 | XMS_ITS | Encounter Summary ---
Author Organization [facility] Address [address] [place] [address] Phone Care Team Providers Care Ledge Man Name Role Phone Arleth Noel NP Primary Care Provider [phone] Encounter Details Date Type Department Care Team (Late st Contact Info) Description 11/03/2011 Documentation [facility] [place] [address] [place], [place] [phone] Family Medicine, Physician [address] [place], [place] [address] Social History Tobacco Use Types Packs/Day Years [...] on filedocumented in this encounter Care Teams Ledge Man Relationship Specialty Start Date End Date Arleth Noel NP PCP - General 05/15/17 documented as of this encounter
[2024-11-23 04:16] LABS: CT PCR NOT DETECTED (Not Detect.); NG PCR NOT DETECTED (Not Detect.)
[2024-11-23 11:16] LABS: Bacterial Vaginosis PCR NEGATIVE (Negative); Candida Group PCR DETECTED (Not Detect); Candida glab krusei PCR NOT DETECTED (Not Detect); Trichomonas vaginalis PCR NOT DETECTED (Not Detect)
== END 2024-11-22 18:10 | disposition home or self-care (01) ==
LOC: HO.LNP 18:09
PROVIDERS: Visit Provider Advanced Practice Midwife
DX: N89.8 Other specified noninflammatory disorders of vagina (principal); Z20.2 Contact with and (suspected) exposure to infections with a predominantly sexual mode of transmission
CPT/HCPCS: 81515; 87491; 87591

== ENCOUNTER 2025-01-08 14:34 | Emergency (ER) | payer OTHER, SELFPAY ==
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
[2025-01-08 14:36] VITALS: BP 147/103; PULSE 95; RESP 18; TEMP 36.6; O2SAT 100; BMI 31.8
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
[2025-01-08 16:20] VITALS: BP 147/103; PULSE 95; RESP 18; TEMP 36.6; O2SAT 100
--- OUTSIDE RECORDS SUMMARY | 2025-01-08 16:22 | XMS_ITS | Data Portability ---
Author Organization [facility] [address] Address [address] [place] [address] Assessment No assessment recorded. Plan of Treatment Reminders Order Date Submit Date Provider Last Modified By Organization Details Last Modified Time Details Appointments None recorded. Lab None recorded. Referral None recorded. Procedures None recorded. Surgeries None recorded. Imaging XR, knee, 3 view 2022 023 [facility], [address] [place] [address], [address], 3 20:38:26 Medication Orders naproxen 500 mg tablet 2022 023 [id number], [address] [place], [address], 17:42:12 Patient TargetsNo targets recorded. Patient Instructions Encounter Date Encounter Id Patient Instructions Last Modified By Organization Details Last Modified Time 06/29/2023 [id number] learning about rice (rest, ice, compression, and [...] 3 view No observ ation record ed. [facility] [address] [place], [address], 06/30/2023 12:42:11 Result Notes None recorded. Problems Name Problem SNOMED Code Status Onset Date Resolution Date Notes Provider Name and Address Organization Details Recorded Time Anxiety 96954493 Active MAYA MINEO null, [place] - [facility] 3 17:32:28 Hypothermia 786011093 Active MAYA MINEO null, [place] - [facility] 3 17:32:40 Asthma 360830889 Active MAYA MINEO null, [place] - [facility] 3 17:32:48 Problem Notes None recorded. Procedures Surgical History None recorded. Imaging Results Imaging Date Name Status LastModified by Organiz ation Details LastModified Time 06/29/2023 XR, knee, 3 view completed [id number] [facility] [address] [place], [address], 06/30/2023 12:42:11 Procedure Notes None recorded. Medical [...] Updated DateTime 3 162.56 cm 31.6 kg/m2 07602 g 98 % 98 % 77 /min [...] SNOMED-CT Code Diagnosis ICD10 Code Diagnosis Note [id number] [address] [address] 06/17/2022 09:03:12 06/17/2022 09:28:19 [id number] [facility] [address] [address] 06/27/2021 10:24:48 06/27/2021 13:20:59 [id number] [place] [id number] [facility] [address] [place] [address] 06/29/2023 16:11:23 06/29/2023 18:15:24 Pain of left knee joint [id number] 88457 M25.562 Health Concerns Section Related Observation LastModified by Organization Richard ls LastModified Time None Recorded Concern Status LastModified by Organization Details LastModified Time None Recorded Advance Directives Directive None Recorded Payers Encounter Date Sequence Insurance Name Policy Number Policy Delarosa Covered Member ID Delarosa Member ID Guarantor Name 06/27/2021 1 [facility] (MEDICAID REPLACEMENT - HMO) LEA Mancusoe Cannon [id number] Dianese Cannon 06/17/2022 1 [facility] (MEDICAID REPLACEMENT - HMO) CARLIYAMARTINA Dianese Cannon [id number] Dianese Cannon 06/29/2023 1 [facility] (MEDICAID REPLACEMENT - HMO) CARLIYAMARTINA Dianese Cannon [id number] Dianese Cannon Notes Date Note Type Note [...] Maza NP [address] [place], [address], [place] - [facility] 06/29/2023 18:14:31 OBGyn Episode No OBEpisode recorded.
--- OUTSIDE RECORDS SUMMARY | 2025-01-08 16:22 | XMS_ITS | Encounter Summary ---
Author Organization [employer] [facility] Address [address] [place] [address] Care Team Providers Care Cyber Intel Planner Name Role Phone Jeramy Bernal MD Primary Care Provider Encounter Details Date Type Department Care Team Description 06/27/2022 Telephone Adult Medicine [address] [address] Jesus Montero [address] [place] [address] Social History Tobacco Use Types Packs/Day Years Used Date Smoking Tobacco: Former Smokeless Tobacco: Never Comments:smokes marijuana oc c Alcohol Use Standard Drinks/Week Comments Yes 0 (1 standard drink = 0.6 oz pur e alcohol) social Physical Activity Answer Date Recorded On average, how many days pe r week do you engage in moderate to strenuous exercise (like walking fast, running, jogging, dancing, swimming, biking, or other activities that cause a light or heavy sweat)? 0 days 08/15/2020 On average, how many minutes do you engage in exercise at this level? 0 min 08/15/2020 Sex Assigned at Date Recorded Not on file documented as of this encounter Plan of Treatment Not on file documented as of this encounter Visit Diagnoses Not on filedocumented in this encounter Care Teams Cyber Intel Planner Relationship Specialty Start Date End Date Jeramy Bernal MD [address] [place] [phone] PCP - General Internal Medicine 06/27/22 documented as of this encounter
--- OUTSIDE RECORDS SUMMARY | 2025-01-08 16:22 | XMS_ITS | Encounter Summary ---
Author Organization [facility] Address [address] [place] [address] Phone Care Team Providers Care Vault Teller Name Role Phone Arleth Noel NP Primary Care Provider [phone] Encounter Details Date Type Department Care Team (Late st Contact Info) Description 11/15/2010 Documentation [facility] [place] [address] [place], [place] [phone] Family Medicine, Physician [address] [place], [place] [address] Social History Tobacco Use Types Packs/Day Years [...] on filedocumented in this encounter Care Teams Vault Teller Relationship Specialty Start Date End Date Arleth Noel NP PCP - General 05/15/17 documented as of this encounter
--- OUTSIDE RECORDS SUMMARY | 2025-01-08 16:22 | XMS_ITS | Encounter Summary ---
Author Organization [facility] Address [address] [place] [address] Phone Care Team Providers Care Data Analyst Name Role Phone Arleth Noel NP Primary Care Provider Encounter Details Date Type Department Care Team (Late st Contact Info) Description 10/27/2012 Documentation [facility] [place] [address] [place], [place] [phone] Family Medicine, Physician [address] [place], [place] [address] Social History Tobacco Use Types Packs/Day Years [...] on filedocumented in this encounter Care Teams Data Analyst Relationship Specialty Start Date End Date Arleth Noel NP PCP - General 05/15/17 documented as of this encounter
--- OUTSIDE RECORDS SUMMARY | 2025-01-08 16:22 | XMS_ITS | Encounter Summary ---
Author Organization [facility] Address [address] [place] [address] Phone Care Team Providers Care Ribbon Lapper Tender Name Role Phone Arleth Noel NP Primary Care Provider [phone] Encounter Details Date Type Department Care Team (Late st Contact Info) Description 04/06/2012 Documentation [facility] [place] [address] [place], [place] [phone] Family Medicine, Physician [address] [place], [place] [address] Social History Tobacco Use Types Packs/Day Years [...] on filedocumented in this encounter Care Teams Ribbon Lapper Tender Relationship Specialty Start Date End Date Arleth Noel NP PCP - General 05/15/17 documented as of this encounter
--- OUTSIDE RECORDS SUMMARY | 2025-01-08 16:22 | XMS_ITS | Encounter Summary ---
Author Organization [facility] Address [address] [place] [address] Phone Care Team Providers Care Science Technician Name Role Phone Arleth Noel NP Primary Care Provider [phone] Encounter Details Date Type Department Care Team (Late st Contact Info) Description 07/19/2012 Documentation [facility] [place] [place] [address] [place], [place] [phone] Family Medicine, Physician [address] [place], [place] [address] Social History Tobacco Use Types Packs/Day Years [...] on filedocumented in this encounter Care Teams Science Technician Relationship Specialty Start Date End Date Arleth Noel NP PCP - General 05/15/17 documented as of this encounter
--- OUTSIDE RECORDS SUMMARY | 2025-01-08 16:22 | XMS_ITS | Clinical Summary ---
Author Organization [facility] Address [address] [place] [address] Phone Care Team Providers Care Music Assistant Name Role Phone Jeramy Bernal MD Primary [...] 1 (one) time each day. Active fluticasone propion-salmete roL (ADVAIR HFA) 230-21 mcg/actuation inhaler Inhale 2 puffs by mouth 2 (two) times a day. Rinse mouth with water after use to reduce aftertaste and incidence of candidiasis. Do not swallow. 1 each 2 5 Active Active Problems Problem Noted Date Diagnosed [...] related. Depression 07/20/2014 Overview (05/23/2024): Suicide attempt 2008/ Asthma 06/22/2014 Hypercholesterolemia 06/22/2014 Hypothyroidism 06/22/2014 Encounters Date Type Department Care Team Description 12/12/2024 Telephone Adult Medicine [address] [phone] Jeramy Bernal MD Advice Only; Forms/questionnaires 11/25/2024 9:45 AM EST Consult General Surgery - [address] [place] [address] Chip Aguillon MD Lipoma of torso 11/21/2024 12:00 PM EST Office Visit Adult [address] [phone] Jeramy Bernal MD Impaired fasting blood sugar (Primary Dx); Elevated blood pressure reading; Screening for lipid disorders; Hypothyroidism, unspecified type; Moderate persistent asthma, unspecified whether complicated 10/13/2024 4:33 PM EST - 10/13/2024 11:59 PM EST Hospital Encounter Radiology Department - [address] [phone] Lipoma of torso Discharge Disposition: Home or Self Care 10/10/2024 2:00 PM EST Office Visit Adult [address] [phone] Cuca Haddad PA Lipoma of torso (Primary Dx); Moderate persistent asthma, unspecified whether complicated 10/10/2024 Telephone Adult Medicine [address] [place], [place] [phone] Jeramy Bernal MD 10/10/2024 Telephone Adult Medicine [facility] [address], [place] [phone] Cuca Haddad PA from Last 3 Months Surgical History Surgery [...] care for your loved ones. For example, summer child caregiver or elderly care for an [...] Sign Reading Time Taken Comments Blood Pressure 130/82 11/25/2024 9:44 AM EST Pulse 68 11/25/2024 9:44 AM EST Temperature 36.5 ??C (97.7 ??F) 11/25/2024 9:44 AM ES T Respiratory Rate 16 11/21/2024 12:10 PM EST Oxygen Saturation 99% 08/16/2024 1:16 PM EST Inhaled Oxygen Concentration - - Weight 88.7 kg (195 lb 9.6 oz) 11/25/2024 9:44 A M EST Height 162.6 cm (5' 4 ) 11/25/2024 9:44 AM EST Body Mass Index 33.57 11/25/2024 9:44 AM EST Plan of Treatment Upcoming Encounters Date Type Department Care Team (Late st Contact Info) Description 03/30/2025 8:00 AM EDT Procedure visit General Surgery - [place] [address] [phone] Chip Aguillon MD [address] [address] 08/17/2025 3:00 PM EST Office Visit [facility] Hematology Oncology [address] [place] [phone] Yulia Gusman PA [address] [place] [address] Health Maintenance Due Date Last Done Comments Cervical Cancer Screening: Pap Smear 2014 Pneumococcal Vaccine: Pediatrics (0 to 5 Years) and At-Risk Patients (6 to 64 Years) (2 of 2 - PCV) 06/22/2015 06/22/2014 HIV Screening 09/13/2022 Hepatitis C Screening 09/13/2022 COVID-19 Vaccine ( - season) 2024 Influenza Vaccine (#1) 2025 2, [...] LAB CHEMISTRY METHOD 11/21/2024 2:41 PM EST [facility] Blood Venous blood specimen / Unknown Venipuncture / Unknown 11/21/2024 12:32 PM EST 11/21/2024 12:32 PM EST Jeramy Bernal MD LAB BLOOD ORDERABLES F inal Result [facility] [address] [place] [address], [place] [phone] * Free thyroxine with reflex to free triiodothyronine (11/21/2024 12:32 PM EST) Free T4 1.11 0.70 - 1.80 ng/dL LAB CHEMISTRY METHOD 11/21/2024 3:07 PM EST [facility] Blood Venous blood specimen / Unknown Venipuncture / Unknown 11/21/2024 12:32 PM EST 11/21/2024 12:32 PM EST Jeramy Bernal MD LAB BLOOD ORDERABLES F inal Result [facility] [address] [place] [address], [place] [phone] * (ABNORMAL) Lipid panel with reflex to direct LDL (11/21/2024 12:32 PM EST) Pathologist [facility] Cholesterol 185 0 - 200 mg/dL LAB CHEMISTRY METHOD 11/21/2024 2:43 PM EST [facility] Triglycerides 74 0 - 150 mg/dL LAB CHEMISTRY METHOD 11/21/2024 2:43 PM EST [facility] HDL 52 >=40 mg/dL LAB CHEMISTRY METHOD 11/21/2024 2:43 PM EST [facility] LDL Calculated 118(H) 0 - 100 mg/dL LAB CHEMISTRY METHOD 11/21/2024 2:43 PM EST [facility] VLDL Cholesterol Yoel 14.8 mg/dL LAB CHEMISTRY METHOD 11/21/2024 2:43 PM EST [facility] Non HDL Chol. (LDL+VLDL) 133 <145 mg/dL LAB CHEMISTRY METHOD 11/21/2024 2:43 PM EST [facility] Chol/HDL Ratio 3.6 0.0 - 4.4 LAB CHEMISTRY METHOD 11/21/2024 2:43 PM EST [facility] Blood Venous blood specimen / Unknown Venipuncture / Unknown 11/21/2024 12:32 PM EST 11/21/2024 12:32 PM EST Jeramy Bernal MD LAB BLOOD ORDERABLES F inal Result [facility] [address] [place] [address], [place] [phone] * (ABNORMAL) CBC auto differential (11/21/2024 12:32 PM EST) [facility] WBC 9.7 4.8 - 10.8 K/mcL LAB HEMETOLOGY METHOD 11/21/2024 2:03 PM [facility] RBC 4.80 3.80 - 4.80 M/mcL LAB HEMETOLOGY METHOD 11/21/2024 2:03 PM [facility] Hemoglobin 12.7 11.5 - 16.0 g/dL LAB HEMETOLOGY METHOD 11/21/2024 2:03 PM [facility] Hematocrit 40.5 35.0 - 47.0 % LAB HEMETOLOGY METHOD 11/21/2024 2:03 PM [facility] MCV 84.7 79.0 - 98.0 FL LAB HEMETOLOGY METHOD 11/21/2024 2:03 PM [facility] MCH 26.6(L) 27.0 - 32.0 pcg LAB HEMETOLOGY METHOD 11/21/2024 2:03 PM [facility] MCHC 31.4(L) 32.0 - 37.0 g/dL LAB HEMETOLOGY METHOD 11/21/2024 2:03 PM [facility] RDW 14.0 11.0 - 15.0 % LAB HEMETOLOGY METHOD 11/21/2024 2:03 PM [facility] Platelets 360 130 - 400 K/mcL LAB HEMETOLOGY METHOD 11/21/2024 2:03 PM [facility] MPV 10.1 7.0 - 11.0 FL LAB HEMETOLOGY METHOD 11/21/2024 2:03 PM [facility] NRBC 0.0 <1.0 % LAB HEMETOLOGY METHOD 11/21/2024 2:03 PM [facility] NRBC Absolute 0.00 <0.10 K/mcL LAB HEMETOLOGY METHOD 11/21/2024 2:03 PM [facility] Neutrophils Relative 70.9 % LAB HEMETOLOGY METHOD 11/21/2024 2:03 PM [facility] Lymphocytes Relative 19.4 % LAB HEMETOLOGY METHOD 11/21/2024 2:03 PM [facility] Monocytes Relative 7.4 % LAB HEMETOLOGY METHOD 11/21/2024 2:03 PM [facility] Eosinophils Relative 1.8 % LAB HEMETOLOGY METHOD 11/21/2024 2:03 PM [facility] Basophils Relative 0.2 % LAB HEMETOLOGY METHOD 11/21/2024 2:03 PM [facility] Immature Granulocytes Relative 0.3 % LAB HEMETOLOGY METHOD 11/21/2024 2:03 PM [facility] Neutrophils Absolute 6.85 1.50 - 7.00 K/mcL LAB HEMETOLOGY METHOD 11/21/2024 2:03 PM [facility] Lymphocytes Absolute 1.87 1.00 - 5.00 K/mcL LAB HEMETOLOGY METHOD 11/21/2024 2:03 PM [facility] Monocytes Absolute 0.71 0.20 - 1.00 K/mcL LAB HEMETOLOGY METHOD 11/21/2024 2:03 PM [facility] Eosinophils Absolute 0.17 0.00 - 0.50 K/mcL LAB HEMETOLOGY METHOD 11/21/2024 2:03 PM [facility] Basophils Absolute 0.02 0.00 - 0.20 K/mcL LAB HEMETOLOGY METHOD 11/21/2024 2:03 PM [facility] Immature Granulocytes Absolute 0.03 0.00 - 0.03 K/mcL LAB HEMETOLOGY METHOD 11/21/2024 2:03 PM [facility] Blood Venous blood specimen / Unknown Venipuncture / Unknown 11/21/2024 12:32 PM EST 11/21/2024 12:32 PM EST us Yulia NICHOLAS LAB BLOOD ORDERABLES Final Resul t Performing Organization Address [facility]/ZIP Co de Phone Number [facility] [address] [place] [address], [place] [phone] * Iron and TIBC (11/21/2024 12:32 PM EST) Pathologist [facility] Iron 74 40 - 150 mcg/dL LAB CHEMISTRY METHOD 11/21/2024 2:34 PM EST [facility] TIBC 428 250 - 450 mcg/dL LAB CHEMISTRY METHOD 11/21/2024 2:34 PM EST [facility] Iron Saturation 17 15 - 50 % LAB CHEMISTRY METHOD 11/21/2024 2:34 PM EST [facility] Blood Venous blood specimen / Unknown Venipuncture / Unknown 11/21/2024 12:32 PM EST 11/21/2024 12:32 PM EST us Yulia NICHOLAS LAB BLOOD ORDERABLES Final Resul t Performing Organization Address [facility]/ZIP Co de Phone Number [facility] [address] [place] [address], [place] [phone] * Triiodothyronine free (11/21/2024 12:32 PM EST) Pathologist [facility] T3, Free 308 230 - 420 pcg/dL LAB CHEMISTRY METHOD 11/21/2024 3:33 PM EST [facility] Blood Venous blood specimen / Unknown Venipuncture / Unknown 11/21/2024 12:32 PM EST 11/21/2024 12:32 PM EST Jeramy Bernal MD LAB BLOOD ORDERABLES F inal Result Performing Organization Address City/[facility]/ZIP Co de Phone Number [facility] [address] [place] [address], [place] [phone] * Hemoglobin A1c (11/21/2024 12:32 PM EST) [facility] Hemoglobin A1C 5.6 <6.5 % LAB CHEMISTRY METHOD 11/21/2024 9:18 PM EST [facility] Mean Bld Glu Estim. 114 mg/dL LAB CHEMISTRY METHOD 11/21/2024 9:18 PM EST [facility] Blood Venous blood specimen / Unknown Venipuncture / Unknown 11/21/2024 12:32 PM EST 11/21/2024 12:32 PM EST us Jeramy Bernal MD LAB BLOOD ORDERABLES F inal Result Performing Organization Address City/[facility]/ZIP Co de Phone Number [facility] [address] [place] [address], [place] [phone] * Ferritin (11/21/2024 12:32 PM EST) Pathologist [facility] Ferritin 8 8 - 252 ng/mL LAB CHEMISTRY METHOD 11/21/2024 2:44 PM EST [facility] Blood Venous blood specimen / Unknown Venipuncture / Unknown 11/21/2024 12:32 PM EST 11/21/2024 12:32 PM EST us Yulia NICHOLAS LAB BLOOD ORDERABLES Final Resul t Performing Organization Address [facility]/ZIP Co de Phone Number [facility] [address] [place] [address], [place] [phone] * [place] Abdomen Limited (10/13/2024 4:39 PM [...] Signed Date: 10/14/2024 08:57 ET Workstation ID: [id number] Transcribed By: Self Edit Transcribed Date: 10/14/2024 [...] Signed Date: 10/14/2024 08:57 ET Workstation ID: [id number] Transcribed By: Self Edit Transcribed Date: 10/14/2024 08:56 ET Cuca NICHOLAS [facility] US PROCEDURES Final Result from Last 3 Months Insurance [facility] Care Teams Music Assistant Relationship Specialty Start Date End Date Jeramy Bernal MD [address] [place] [address] PCP - General Internal Medicine 06/27/22
--- OUTSIDE RECORDS SUMMARY | 2025-01-08 16:22 | XMS_ITS | Encounter Summary ---
Author Organization [facility] Address [address] [place] [address] Phone Care Team Providers Care Back Tender Name Role Phone Arleth Noel NP Primary Care Provider [phone] Encounter Details Date Type Department Care Team (Late st Contact Info) Description 02/11/2012 Documentation [facility] Family Medicine [address] [place], [place] [id number] Family Medicine, Physician [address] [place], [place] [address] Social History Tobacco Use Types Packs/Day Years [...] on filedocumented in this encounter Care Teams Back Tender Relationship Specialty Start Date End Date Arleth Noel NP PCP - General 05/15/17 documented as of this encounter
--- OUTSIDE RECORDS SUMMARY | 2025-01-08 16:22 | XMS_ITS | Encounter Summary ---
Author Organization [facility] Address [address] [place] [address] Phone Care Team Providers Care Corporate Controller Name Role Phone Arleth Noel NP Primary Care Provider [phone] Encounter Details Date Type Department Care Team (Late st Contact Info) Description 12/17/2011 Documentation [facility] Family Medicine [address] [place], [place] [id number] Family Medicine, Physician [address] [place], [place] [address] Social History Tobacco Use Types Packs/Day Years [...] on filedocumented in this encounter Care Teams Corporate Controller Relationship Specialty Start Date End Date Arleth Noel NP PCP - General 05/15/17 documented as of this encounter
--- OUTSIDE RECORDS SUMMARY | 2025-01-08 16:22 | XMS_ITS | Encounter Summary ---
Author Organization [facility] Address [address] [place] [address] Phone Care Team Providers Care Warehouse Shipper Name Role Phone Arleth Noel NP Primary Care Provider [phone] Encounter Details Date Type Department Care Team (Late st Contact Info) Description 09/20/2012 Documentation [facility] Family Medicine [address] [place], [place] [phone] Family Medicine, Physician [address] [place], [place] [address] Social History Tobacco Use Types Packs/Day Years [...] filedocumented in this encounter Care Teams Warehouse Shipper Relationship Specialty Start Date End Date Arleth Noel NP PCP - General 05/15/17 documented as of this encounter
--- OUTSIDE RECORDS SUMMARY | 2025-01-08 16:22 | XMS_ITS | Encounter Summary ---
Author Organization [email or web address] [facility] Address [address] [place] [address] Care Team Providers Care Dry Cleaning Machine Operator Name Role Phone Steffanie Perkins DO Primary Care Pro vider Unavailable Reina Johansen MD Primary Care Provider Jesus Hilton Primary Care Provider [phone] Jeramy Bernal MD Primary Care Provider Encounter Details Date Type Department Care Team Description 02/18/2019 Timber Management Professor Report Medical Records [address] [place] [address] Cuca Jensen DO Social History Tobacco Use Types Packs/Day Years Used Date Smoking Tobacco: Former Smokeless Tobacco: Never Comments:smokes marijuana da bar Alcohol Use Standard Drinks/Week Comments No 0 (1 standard drink = 0.6 oz pur e alcohol) Physical Activity Answer Date Recorded On average, [...] on filedocumented in this encounter Care Teams Dry Cleaning Machine Operator Relationship Specialty Start Date End Date Steffanie Perkins DO PCP - General Internal Medicine 04/02/15 04/24/21 Reina Johansen MD PCP - General Internal Medicine 04/25/21 02/18/22 Jesus Montero [address] [place] [address] PCP - General Internal Medicine 02/19/22 06/26/22 Jeramy Bernal MD [address] [place] [address] PCP - General Internal Medicine 06/27/22 documented as of this encounter
--- OUTSIDE RECORDS SUMMARY | 2025-01-08 16:22 | XMS_ITS | Encounter Summary ---
Author Organization [facility] Address [address] [place] [address] Phone Care Team Providers Care Application Processor Name Role Phone Arleth Noel NP Primary Care Provider [phone] Encounter Details Date Type Department Care Team (Late st Contact Info) Description 05/21/2017 Conversion Encounter [facility] - [address] [address] Social History Tobacco Use Types Packs/Day Years [...] on filedocumented in this encounter Care Teams Application Processor Relationship Specialty Start Date End Date Arleth Noel NP PCP - General 05/15/17 documented as of this encounter
--- OUTSIDE RECORDS SUMMARY | 2025-01-08 16:22 | XMS_ITS | Encounter Summary ---
Author Organization [facility] Address [address] [place] [address] Phone Care Team Providers Care Social Media Intern Name Role Phone Arleth Noel NP Primary Care Provider [phone] Encounter Details Date Type Department Care Team (Late st Contact Info) Description 07/27/2012 Documentation [facility] Family Medicine [address] [place], [place] [id number] Family Medicine, Physician [address] [place], [place] [address] Social History Tobacco Use Types Packs/Day Years [...] on filedocumented in this encounter Care Teams Social Media Intern Relationship Specialty Start Date End Date Arleth Noel NP PCP - General 05/15/17 documented as of this encounter
--- OUTSIDE RECORDS SUMMARY | 2025-01-08 16:22 | XMS_ITS | Encounter Summary ---
Author Organization [facility] Address [address] [place] [address] Phone Care Team Providers Care Internal Controls Specialist Name Role Phone Arleth Noel NP Primary Care Provider [phone] Encounter Details Date Type Department Care Team (Late st Contact Info) Description 02/04/2012 Documentation [facility] [place] Medicine [address] [place], [place] [phone] Family Medicine, Physician [address] [place], [place] [address] Social History Tobacco Use Types Packs/Day Years [...] on filedocumented in this encounter Care Teams Internal Controls Specialist Relationship Specialty Start Date End Date Arleth Noel NP PCP - General 05/15/17 documented as of this encounter
--- OUTSIDE RECORDS SUMMARY | 2025-01-08 16:22 | XMS_ITS | Encounter Summary ---
Author Organization [employer] [facility] Address [address] [place] [address] Care Team Providers Care Gold Wheel Blocker And Polisher Name Role Phone Steffanie Perkins DO Primary Care Pro vider Unavailable Reina Johansen MD Primary Care Provider Jesus Hilton Primary Care Provider [phone] Jeramy Bernal MD Primary Care Provider Encounter Details Date Type Department Care Team Description 10/31/2020 Sales Research Analyst Report Medical Records [address] [place] [address] Rob Dumont MD Social History Tobacco Use Types Packs/Day Years [...] on filedocumented in this encounter Care Teams Gold Wheel Blocker And Polisher Relationship Specialty Start Date End Date Steffanie Perkins DO PCP - General Internal Medicine 04/02/15 04/24/21 Reina Johansen MD PCP - General Internal Medicine 04/25/21 02/18/22 Jesus Montero [address] [place] [address] PCP - General Internal Medicine 02/19/22 06/26/22 Jeramy Bernal MD [address] [place] [address] PCP - General Internal Medicine 06/27/22 documented as of this encounter
--- OUTSIDE RECORDS SUMMARY | 2025-01-08 16:22 | XMS_ITS | Encounter Summary ---
Author Organization [facility] Address [address] [place] [address] Phone Care Team Providers Care Medical Office Manager Name Role Phone Arleth Noel NP Primary Care Provider [phone] Encounter Details Date Type Department Care Team (Late st Contact Info) Description 02/12/2010 Documentation [facility] Family Medicine [address] [place] [address] Family Medicine, Physician [address] [place], [place] [address] Social History Tobacco Use Types Packs/Day Years [...] on filedocumented in this encounter Care Teams Medical Office Manager Relationship Specialty Start Date End Date Arleth Noel NP PCP - General 05/15/17 documented as of this encounter
--- OUTSIDE RECORDS SUMMARY | 2025-01-08 16:22 | XMS_ITS | Encounter Summary ---
Author Organization [facility] Address [address] [place] [address] Phone Care Team Providers Care Big Data Admin Name Role Phone Arleth Noel NP Primary Care Provider [phone] Encounter Details Date Type Department Care Team (Late st Contact Info) Description 11/03/2011 Documentation [facility] Family Medicine [address] [place], [place] [phone] Family Medicine, Physician [address] [place], [place] [address] Social History Tobacco Use Types Packs/Day Years [...] on filedocumented in this encounter Care Teams Big Data Admin Relationship Specialty Start Date End Date Arleth Noel NP PCP - General 05/15/17 documented as of this encounter
--- OUTSIDE RECORDS SUMMARY | 2025-01-08 16:22 | XMS_ITS | Encounter Summary ---
Author Organization [facility] Address [address] [place] [address] Phone Care Team Providers Care Reinsurance Analyst Name Role Phone Arleth Noel NP Primary Care Provider [phone] Encounter Details Date Type Department Care Team (Late st Contact Info) Description 10/11/2012 Documentation [facility] Family Medicine [address] [place], [place] [id number] Family Medicine, Physician [address] [place], [place] [address] Social History Tobacco Use Types Packs/Day Years [...] on filedocumented in this encounter Care Teams Reinsurance Analyst Relationship Specialty Start Date End Date Arleth Noel NP PCP - General 05/15/17 documented as of this encounter
--- OUTSIDE RECORDS SUMMARY | 2025-01-08 16:22 | XMS_ITS | Encounter Summary ---
Author Organization [employer] [facility] Address [address] [place] [address] Care Team Providers Care Pest Control Worker Name Role Phone Steffanie Perkins DO Primary Care Pro vider Unavailable Reina Johansen MD Primary Care Provider Jesus Hilton Primary Care Provider [phone] Jeramy Bernal MD Primary Care Provider Encounter Details Date Type Department Care Team Description 08/20/2017 Service Planner Report Medical Records [address] [place] [address] Aniya Forman Social History Tobacco Use Types Packs/Day Years [...] on filedocumented in this encounter Care Teams Pest Control Worker Relationship Specialty Start Date End Date Steffanie Perkins DO PCP - General Internal Medicine 04/02/15 04/24/21 Reina Johansen MD PCP - General Internal Medicine 04/25/21 02/18/22 Jesus Montero [address] [place] [address] PCP - General Internal Medicine 02/19/22 06/26/22 Jeramy Bernal MD [address] [place] [address] PCP - General Internal Medicine 06/27/22 documented as of this encounter
--- OUTSIDE RECORDS SUMMARY | 2025-01-08 16:22 | XMS_ITS | Encounter Summary ---
Author Organization [employer] [facility] Address [address] [place] [address] Care Team Providers Care Manager Inspection Name Role Phone Steffanie Perkins DO Primary Care Pro vider Unavailable Reina Johansen MD Primary Care Provider Jesus Hilton Primary Care Provider [phone] Jeramy Bernal MD Primary Care Provider Reason for Visit * Reason Onset Date Comments REFERRAL 03/26/2016 Gen-Surgery Encounter Details Date Type Department Care Team Description 03/26/2016 Telephone General Surgery [address] [place] [address] Kristian Cortes MD [address] [place] [address] REFERRAL (Gen-Surgery) Social History Tobacco Use Types Packs/Day Years [...] on file documented as of this encounter Miscellaneous Notes * Telephone Encounter - Tara Weston - 03/26/2016 8:37 AM EDT All attempts have been exhausted to reach the patient to schedule a consultation in the General Surgery Department. Taking off from the referral report. documented in this encounter Plan of Treatment Not on file documented as of this encounter Visit Diagnoses Not on filedocumented in this encounter Care Teams Manager Inspection Relationship Specialty Start Date End Date Steffanie Perkins DO PCP - General Internal Medicine 04/02/15 04/24/21 Reina Johansen MD PCP - General Internal Medicine 04/25/21 02/18/22 Jesus Montero [address] [place] [address] PCP - General Internal Medicine 02/19/22 06/26/22 Jeramy Bernal MD [address] [place] [address] PCP - General Internal Medicine 06/27/22 documented as of this encounter
--- OUTSIDE RECORDS SUMMARY | 2025-01-08 16:22 | XMS_ITS | Encounter Summary ---
Author Organization [facility] Address [address] [place] [address] Phone Care Team Providers Care Screw Machine Tool Setter Name Role Phone Arleth Noel NP Primary Care Provider [phone] Encounter Details Date Type Department Care Team (Late st Contact Info) Description 11/03/2011 Documentation [facility] [place] [address] [place], [place] [id number] Family Medicine, Physician [address] [place], [place] [address] Social History Tobacco Use Types Packs/Day Years [...] on filedocumented in this encounter Care Teams Screw Machine Tool Setter Relationship Specialty Start Date End Date Arleth Noel NP PCP - General 05/15/17 documented as of this encounter
--- OUTSIDE RECORDS SUMMARY | 2025-01-08 16:22 | XMS_ITS | Encounter Summary ---
Author Organization [facility] Address [address] [place] [address] Care Team Providers Care Wood Borer Name Role Phone Jeramy Bernal MD Primary Care Provider Encounter Details Date Type Department Care Team Description 02/18/2024 Orders Only Medical Records [address] [place] [address] Yulia Gusman PA-C Social History Tobacco Use Types Packs/Day Years [...] on file documented as of this encounter Procedures Procedure Name Priority Date/Time Associated Diagnosis Comments OUTSIDE LAB Routine 02/11/2024 documented in this encounter Results * OUTSIDE LAB (02/11/2024) Yulia Gusman PA-C LAB documented in this encounter Visit Diagnoses Not on filedocumented in this encounter Care Teams Wood Borer Relationship Specialty Start Date End Date Jeramy Bernal MD [address] [place] [address] PCP - General Internal Medicine 06/27/22 documented as of this encounter
--- OUTSIDE RECORDS SUMMARY | 2025-01-08 16:22 | XMS_ITS | Encounter Summary ---
Author Organization [employer] [facility] Address [address] [place] [address] Care Team Providers Care Surgical Device Sales Representative Name Role Phone Steffanie Perkins DO Primary Care Pro vider Unavailable Reina Johansen MD Primary Care Provider Jesus Hilton Primary Care Provider Jeramy Bernal MD Primary Care Provider Reason for Visit * Reason Onset Date Comments radiology 07/19/2015 breast mri. Encounter Details Date Type Department Care Team Description 07/19/2015 Telephone Genetic & Disease Counseling - [address] [address] Vianca Herrera PA-C radiology (breast mri.) Social History Tobacco Use Types Packs/Day Years [...] encounter Miscellaneous Notes * Telephone Encounter - Jacinto Allen - 07/19/2015 8:47 AM EDT Macie Cannon has not responded to the telephone calls that were made on 06/22/15 and 06/25/15 as well as the letter that was sent on 07/22/15 to schedule an MRI; therefore we are removing the test from our Scheduled Orders Report. Please note that this test must be reordered if required in the future. documented in this encounter Plan of Treatment Not on file documented as of this encounter Visit Diagnoses Not on filedocumented in this encounter Care Teams Surgical Device Sales Representative Relationship Specialty Start Date End Date Steffanie Perkins DO PCP - General Internal Medicine 04/02/15 04/24/21 Reina Johansen MD PCP - General Internal Medicine 04/25/21 02/18/22 Jesus Montero [address] [place] [address] PCP - General Internal Medicine 02/19/22 06/26/22 Jeramy Bernal MD [address] [place] [address] PCP - General Internal Medicine 06/27/22 documented as of this encounter
--- OUTSIDE RECORDS SUMMARY | 2025-01-08 16:22 | XMS_ITS | Clinical Summary ---
Author Organization [facility] Address [address] [place] [address] Care Team Providers Care Pattern Hanger Name Role Phone Jeramy Bernal Primary Care [...] Group Subscriber ID Effective Dates Phone Address [facility] [id number] 2023-Present [address] [facility] [address] [place] [address] HMO Care Teams Pattern Hanger Relationship Specialty Start Date End Date Jeramy Bernal MBBS [address] [place] [address] PCP - General Internal Medicine 03/25/23
--- OUTSIDE RECORDS SUMMARY | 2025-01-08 16:22 | XMS_ITS | Clinical Summary ---
Author Organization [facility] Address [address] [place] [address] Care Team Providers Care Tc Operator Name Role Phone Jeramy Bernal MD Primary Care Provider Allergies No known active allergies Medications Medication Sig Dispensed Refills Start Date End Date Status albuterol (PROVENTIL) (2.5 MG/3ML) 0.083% nebulizer solution Take 1 Vial by nebulization every 4 hours as needed for Wheezing for up to 180 days. 20 mL 2 08/04/2022 Active fluticasone-salmet pérez (Advair HFA) 230-21 MCG/ACT inhalerIndications :Moderate persistent asthma, unspecified whether complicated Inhale 2 Puffs into the lungs 2 times daily for 90 days. 3 g 3 10/21/2022 Active oxcarbazepine (TRILEPTAL) 300 MG tablet Take 1 Tablet by mouth 2 times daily. 0 Active Levothyroxine Sodium 150 MCG Cap Take 1 Capsule by mouth daily. 0 Active doxycycline (VIBRAMYCIN) 50 MG capsule TAKE 1 CAPSULE ONCE A DAY WITH FOOD AND WATER 0 02/09/2023 Active ibuprofen (ADVIL,MOTRIN) 800 MG tablet Take 1 Tablet by mouth every 8 hours as needed for Pain. 90 Tablet 0 10/19/2023 Active azelastine (OPTIVAR) 0.05 % ophthalmic solution Place 1 Drop into both eyes 2 times daily. 6 mL 0 12/17/2023 01/10/2025 Active vitamin D (ERGOCALCIFEROL) 1.25 MG (47935 UT) capsule TAKE 1 CAPSULE BY MOUTH ONE TIME PER WEEK 4 Capsule 0 05/09/2024 Active Active Problems Problem Noted Date Iron deficiency anemia due to chronic bl ood loss 02/16/2024 Bipolar 1 disorder 12/01/2022 Hidradenitis suppurativa 08/04/2022 Class 1 obesity without seri ous comorbidity with body mass index (BMI) of 32.0 to 32.9 in adult 08/04/2022 Anxiety and depression 08/04/2022 Normocytic anemia 09/05/2020 Overview: Heavy Menses. Recommended followup with OBGYN H/H stable. High TIBC, low ferritin, normal FE. Referred to Heme/Onc. Intermenstrual bleeding 01/25/2018 Last Assessment & Plan: Counseled pt that [...] over several months, thus not likely related. Screening examination for venereal disea se 01/25/2018 Last Assessment & Plan: Encouraged safe sex practices. Lipoma of right upper extremity 05/29/20 16 Family history of breast can cer in mother-Pt MyRisk negative 02/16/2015. Tyrer-Cuzick score = 34.4% = high risk. 11/03/2014 Overview: Monthly breast self-exam Breast self-awareness Breast and pelvic exams -pelvic exam annually with breast exam every 6 months Mammography annually start age 20 per Radiologist as Mom's first breast cancer dx at age 32 Bilateral breast JAR-[id number] at age 20. See above re mammo. Patient's T-C score of 34.4% = high risk. The total time of this visit was 30 minutes of which we spent 30 minutes in direct [id number] consultation discussing the care and coordination of her genetic testing. She has requested an appointment with a medical oncologist to discuss her results and chemoprevention. Graves' ophthalmopathy 10/05/2014 Hypothyroidism 06/22/2014 Asthma 06/22/2014 H/O Graves' disease 06/22/2014 Overview: Was given radioactive iodine in 2012. Hypercholesterolemia 06/22/2014 Immunizations Name Administration Dates Next Due DTaP 05/29/1999, 8,07/19/1996,12/02,1993 HIB 07/26/2010,07/19/1996,1993 HPV (Gardasil) 03/04/2012,07/26/2010,05/15/2010 Hepatitis B-3 Dose (<19yrs) 1993, 3,1993 MMR (Kqsuetr-Hsuvk-Kruktem) 11/08/1997, 6 Meningococcal (MENOMUNE) 03/04/2012,12/02/2005 PPD-RBMG 07/26/2014 Pneumoccoccal(Adult) Polysac charide PPSV23 06/22/2014 Polio (OPV) 11/08/1997, 6,1993,09/03 TD (STATE SUPPLIED FOR ADULT S AND CHILDREN) 02/20/2016,02/20/2016 Tdap 12/02/2005 Family History Medical History Relation Name Comments Thyroid Disorder Aunt maternal au nt Other Father no information heart disease Maternal Grandfather o f head injury in his 40s heart disease Maternal Grandmother arthri tis, HTN CA Breast Mother 1 32 2nd primary br ca age 38 Hypertension Mother 1 32 Other Paternal Grandfather edema Paternal Grandmother Relation Name Status Comments Aunt Father Alive Maternal Grandfather Maternal Grandmother Mother 1 32 Alive Mother 2 Alive Paternal Grandfather Paternal Grandmother Social History Tobacco Use Types Packs/Day Years Used Date Smoking Tobacco: Former Smokeless Tobacco: Never Tobacco Cessation:Counseling Given: Not Answered Comments:smokes marijuana occ Alcohol Use Standard Drinks/Week Comments Yes 0 [...] Assigned at Date Recorded Not on file Last Filed Vital Signs Vital Sign Reading Time Taken Comments Blood Pressure 136/72 12/17/2023 12:17 PM EDT Pulse 66 12/17/2023 12:17 PM EDT Temperature 36.1 ??C (97 ??F) 02/16/2024 4:06 PM EDT Respiratory Rate 15 02/16/2024 4:06 PM EDT Oxygen Saturation 97% 02/16/2024 4:06 PM EDT Inhaled Oxygen Concentration - - Weight 87.5 kg (193 lb) 02/16/2024 4:06 PM EDT Height 162.6 cm (5' 4 ) 02/16/2024 4:06 PM EDT Body Mass Index 33.13 02/16/2024 4:06 PM EDT Plan of Treatment Health Maintenance Due Date Last Done Comments Covid-19 Vaccine (#1) 1993 CERVICAL CANCER SCREENING 07/05/20242020 (External Completion), 11/10/2013 (External Completion of test per patient (Patient reports normal results)) BMI CHECK/ADVISE 10/05/2024 02/16/2024, (Completed), 08/18/2023, Additional history exists DEPRESSION SCREENING/FOLLOWUP 10/05/2024 (Completed), 08/18/2023, 03/04/2023, Additional history exists SOCIAL NEEDS SCREENING 10/05/2024 12/17/2023, 2022 INFLUENZA (Season Ended) 2025 020 (External Completion of Vaccination per patient) DTAP/TDAP/TD (8 - Td or Tdap) 02/19/2026, 02/20/2016, 12/02/2005, Additional history exists CHOLESTEROL SCREENING 12/01/2027 12/01/2022 , 09/02/2020, 02/20/2016, Additional history exists BASELINE HEALTH EXAM 18-39 02/15/202902/15, 08/04/2022, 09/02/2020, Additional history exists PNEUMOCOCCAL VACCINE FOR HIG H RISK PATIENTS (#2) 2058 06/22/2014 Care Teams Tc Operator Relationship Specialty Start Date End Date Jearmy Bernal MD [address] [place] [address] [phone] PCP - General Internal Medicine 06/27/22
--- OUTSIDE RECORDS SUMMARY | 2025-01-08 16:22 | XMS_ITS | Encounter Summary ---
Author Organization [facility] Address [address] [place] [address] Phone Care Team Providers Care Principal Ios Developer Name Role Phone Arleth Noel NP Primary Care Provider [phone] Encounter Details Date Type Department Care Team (Late st Contact Info) Description 04/09/2012 Documentation [facility] [place] Family Medicine [address] [place], [place] [phone] Family Medicine, Physician [address] [place], [place] [address] Social History Tobacco Use Types Packs/Day Years [...] on filedocumented in this encounter Care Teams Principal Ios Developer Relationship Specialty Start Date End Date Arleth Noel NP PCP - General 05/15/17 documented as of this encounter
--- OUTSIDE RECORDS SUMMARY | 2025-01-08 16:22 | XMS_ITS | Encounter Summary ---
Author Organization [facility] Address [address] [place] [address] Phone Care Team Providers Care Corporate Safety Director Name Role Phone Arleth Noel NP Primary Care Provider [phone] Encounter Details Date Type Department Care Team (Late st Contact Info) Description 10/07/2011 Documentation [facility] [place] Family Medicine [address] [place], [place] [phone] Family Medicine, Physician [address] [place], [place] [address] Social History Tobacco Use Types Packs/Day Years [...] filedocumented in this encounter Care Teams Corporate Safety Director Relationship Specialty Start Date End Date Arleth oNel NP PCP - General 05/15/17 documented as of this encounter
--- OUTSIDE RECORDS SUMMARY | 2025-01-08 16:22 | XMS_ITS | Encounter Summary ---
Author Organization [facility] Address [address] [place] [address] Phone Care Team Providers Care Animal Caretaker Name Role Phone Arleth Noel NP Primary Care Provider [phone] Encounter Details Date Type Department Care Team (Late st Contact Info) Description 02/03/2012 Documentation [facility] [place] [address] [place], [place] [phone] Family Medicine, Physician [address] [place], [place] [address] Social History Tobacco Use Types Packs/Day Years [...] on filedocumented in this encounter Care Teams Animal Caretaker Relationship Specialty Start Date End Date Arleth Noel NP PCP - General 05/15/17 documented as of this encounter
--- OUTSIDE RECORDS SUMMARY | 2025-01-08 16:22 | XMS_ITS | Encounter Summary ---
Author Organization [facility] Address [address] [place] [address] Care Team Providers Care Supervisor Livestock Yard Name Role Phone Jesus Montero Primary Care Provider [phone] Jeramy Bernal MD Primary Care Provider Encounter Details Date Type Department Care Team Description 06/24/2022 Orders Only Adult Medicine [address] [address] Jesus Montero [address] [place] [address] Social History Tobacco Use Types Packs/Day Years [...] filedocumented in this encounter Care Teams Supervisor Livestock Yard Relationship Specialty Start Date End Date Jesus Montero [address] [place] [address] PCP - General Internal Medicine 02/19/22 06/26/22 Jeramy Bernal MD [address] [place] [address] PCP - General Internal Medicine 06/27/22 documented as of this encounter
--- OUTSIDE RECORDS SUMMARY | 2025-01-08 16:22 | XMS_ITS | Encounter Summary ---
Author Organization [facility] Address [address] [place] [address] Phone Care Team Providers Care Laminator Printed Circuit Boards Name Role Phone Arleth Noel NP Primary Care Provider [phone] Encounter Details Date Type Department Care Team (Late st Contact Info) Description 10/07/2011 Documentation [facility] [place] Family Medicine [address] [place], [place] [phone] Family Medicine, Physician [address] [place], [place] [address] Social History Tobacco Use Types Packs/Day Years [...] on filedocumented in this encounter Care Teams Laminator Printed Circuit Boards Relationship Specialty Start Date End Date Arleth Noel NP PCP - General 05/15/17 documented as of this encounter
--- OUTSIDE RECORDS SUMMARY | 2025-01-08 16:22 | XMS_ITS | Encounter Summary ---
Author Organization [facility] Address [address] [place] [address] Phone Care Team Providers Care Licensing Specialist Name Role Phone Arleth Noel NP Primary Care Provider [phone] Encounter Details Date Type Department Care Team (Late st Contact Info) Description 05/15/2010 Documentation [facility] Family Medicine [address] [place], [place] [phone] Family Medicine, Physician [address] [place], [place] [address] Social History Tobacco Use Types Packs/Day Years [...] on filedocumented in this encounter Care Teams Licensing Specialist Relationship Specialty Start Date End Date Arleth Noel NP PCP - General 05/15/17 documented as of this encounter
--- OUTSIDE RECORDS SUMMARY | 2025-01-08 16:22 | XMS_ITS | Clinical Summary ---
Author Organization [facility] Address [address] [place] [address] Phone Care Team Providers Care Hand Stonecutter Name Role Phone Arleth Noel NP Primary Care Provider [phone] Immunizations Immunization Administration Dates Next Due DTaP [...] complete this topic Procedures * Due to [place] state law, this organization might not be sharing sensitive test results. Procedure Name Priority Date/Time Associated Diagnosis Comments CHLAMYDIA AND GONORRHEA, AMPLIFIED Routine 09/17/2012 12:35 PM EST from Last 3 Months or Most Recently Relevant to Health Maintenance Results * Due to [place] state law, this organization might not be sharing sensitive test results. * Chlamydia and Gonorrhoea, Amplified (09/17/2012 12:35 PM EST) URINE GC AMP PROBE NEGATIVE [facility] Comment: NO NEISSERIA GONORRHOEAE RNA DETECTED IN THIS PATIENT'S SAMPLE. ? (REFERENCE RANGE/NORMAL VALUE: NOT DETECTED) ? NOTE: THIS TEST USES SALSA DANCE INSTRUCTOR MEDIATED AMPLIFICATION METHOD TO DETECT rRNA FROM [...] OTHER AGENTS. URINE CHLAMYDIA AMP PROBE NEGATIVE [facility] Comment: NO CHLAMYDIA TRACHOMATIS RNA DETECTED IN THIS PATIENT'S SAMPLE. ? (REFERENCE RANGE/NORMAL VALUE: NOT DETECTED) 09/17/2012 12:3 5 PM EST Narrative [facility] - 09/17/2012 12:35 PM EST URINE CHLAMYDIA GC AMP PROBE Marisa Vincent DO LAB MICROBIOLOGY - GENERAL ORDER MARILYN Final Result [facility] [address] [place] [address], from Last 3 Months or Most Recently Relevant to Health Maintenance Care Teams Hand Stonecutter Relationship Specialty Start Date End Date Arleth Noel NP PCP - General 05/15/17
== END 2025-01-08 16:27 | disposition home or self-care (01) ==
LOC: HO.ED 16:21
PROVIDERS: Emergency Provider Emergency Medicine; PCP Internal Medicine
DX: Z04.1 Encounter for examination and observation following transport accident (principal); M79.641 Pain in right hand; R51.9 Headache, unspecified
CPT/HCPCS: 70450; 73130; 99282; 99284

== ENCOUNTER → 2025-01-08 14:39 | Outpatient (BNV) | payer OTHER, SELFPAY | PROVIDERS: Visit Provider Radiology Diagnostic Radiology | DX: R51.9 Headache, unspecified (principal); M79.641 Pain in right hand | CPT/HCPCS: 70450; 73130 ==

== ENCOUNTER 2025-05-06 11:20 | Observation (INO) | payer OTHER, SELFPAY ==
--- NOTE | ~2025-05-06 | XR_ITS ---
CLINICAL HISTORY: R hip buttock pain s p over extension injury AP pelvis, Two views of the right hip. COMPARISON: None provided. FINDINGS: Pelvic ring appears intact. Visualized lower lumbar spine is unremarkable. Umbilical ring present. Visualized portions of the contralateral left hip appear intact. Right hip: Visualized portions of the proximal right femur appears intact. No trabecular disruption or cortical discontinuity. Femoral head is appropriately seated in the acetabulum. IMPRESSION: 1. No radiographic evidence of acute injury to the pelvis and right hip. This document has been electronically signed by: Maicol Stephenson MD on 05/06/2025 14:26:12
--- NOTE | ~2025-05-06 | XR_ITS ---
CLINICAL HISTORY: R thigh pain s p over extension injury Two views of the right femur. COMPARISON: XR pelvis and right hip dated 05/06/25 at 13:13 EDT FINDINGS: Most proximal aspects of the right femur are viewed on radiographs of the right hip performed at the same time. Femur appears intact. Visualized portions of the right hip and right knee appear intact. No radiopaque foreign body. IMPRESSION: 1. No radiographic evidence of acute injury to the right femur. This document has been electronically signed by: Maicol Stephenson MD on 05/06/2025 14:24:05
--- NOTE | 2025-05-06 11:23 | ED.LOWEXIN ---
HPI - Extremity Injury (Lower) General Chief Complaint: Extremity Injury, Lower Stated Complaint: fell r hip inj Time Seen by Provider: 05/06/25 11:52 Source: patient and family (mom) Mode of arrival: ambulatory Limitations: no limitations History of Present Illness ED Provider: BROOKE PÉREZ PA-C HPI Narrative: 29 year old female with pmhx significant for anemia, hypothyroidism, and asthma presents to the ED today for evaluation of right hip/thigh pain since early this morning. Patient states that around 3 am today she got out of bed to use the bathroom and attempted to step over a dog gate when her right foot became caught, causing her to fall. Reports doing the splits and landing on the right leg and feeling a pop in her right thigh. She experienced immediate pain to her right hip extending into the back of her right thigh/buttock region. She was able so stand and ambulate back to bed where she slept for a few hours, however began experiencing worsening pain in this region, prompting her to come to the ED for further evaluation. She did not trial any [id number] pain meds prior to arrival. Denies any numbness/tingling/weakness of the RLE. Related Data Home Medications ?Medication ?Instructions ?Recorded ?Confirmed doxycycline hyclate 50 mg capsule 50 mg PO DAILY 02/23/23 11/22/24 levothyroxine 150 mcg capsule 150 mcg PO DAILY 02/23/23 11/22/24 (Tirosint) Previous Rx's ?Medication ?Instructions ?Recorded albuterol sulfate 2.5 mg/0.5 mL 5 mg inhalation Q6H PRN shortness 01/22/21 solution for nebulization of breath or wheezing #30 ea albuterol sulfate 2.5 mg/3 mL 2.5 mg (3 mL) inhalation Q4-6H PRN 10/03/21 (0.083 %) solution for nebulization bronchospasm #75 mL etonogestrel 0.12 mg-ethinyl 1 vag ring vaginal Q4W #3 ea 11/22/24 estradiol 0.015 mg/24 hr vaginal ring fluconazole 150 mg tablet 150 mg PO Q3D 2 doses #2 tabs 11/22/24 lidocaine 5 % topical patch 1 patch topical DAILY #15 ea 05/06/25 (Lidoderm) naproxen 500 mg tablet 500 mg PO Q12H PRN pain (scale 05/06/25 score 1-3) #20 tabs Allergies Allergy/AdvReac Type Severity Reaction Status Date / Time No Known Allergies Allergy Verified 05/06/25 11:27 Review of Systems Review of Systems: Yes all other systems are reviewed and are negative [facility] Past Medical History Attestation statement: The following information was validated with the patient. Source: old records reviewed and nursing notes reviewed Medical History Anemia Hypothyroid Asthma Surgical History No pertinent past surgical history Family History Family History Mother Breast cancer Hypertension Maternal Grandmother Hypertension High cholesterol Social History Social History Household Members: None Housing: House Alcohol intake: current Alcohol intake frequency: a few times a month Alcohol type: hard liquor Patient Tobacco Use Status: Never used Tobacco Smoked in Last 30 Days: No Use of substances other than those prescribed or required for medical reasons: Yes Substance Use Type: Marijuana Advance Directives: No Advance Directives Information Provided: No Do you have a plan to hurt others: No Plan Physical Exam Vital Signs: Vital Signs: Last Vital Signs Temp 98.3 F 05/06/25 11:25 Pulse 100 05/06/25 11:25 Resp 17 05/06/25 11:25 BP 160/90 H 05/06/25 11:25 Pulse Ox 98 05/06/25 11:25 O2 Del Method Room Air 05/06/25 11:25 BMI result Body Mass Index 30.9 hypertensive, vitals are otherwise wnl General: incomfortable appearing. Skin: Warm, dry, intact. No rashes or lesions. Head: Normocephalic, atraumatic. EENT: Hearing is intact b/l. Conjunctiva clear. Sclera is anicteric. PERRLA. EOM intact. Moist mucous membranes.? Neck: Supple without LAD. FROM. Trachea midline.? Cardiac: Chest wall symmetric. RRR Lungs: Normal respiratory effort without accessory muscle use. CTA bilaterally Abdomen: Soft, non-tender, non-distended. No rebound tenderness or guarding. Positive BS x4. Back: No midline spinous or paraspinal tenderness. No step off deformity. Ext: +right hip and right knee held in flexion. unable to actively extend right hip/knee to straighten leg, limited with passive extension d/t pain. ttp along posterior right thigh from knee to buttock. no TTP over right hip. no step offs. no overlying skin changes or hematoma. compartments soft and compressible. 2+ dp/pt pulse intact. Neuro: AOx3. Normal speech. Course Course Course Narrative: This is an RME performed by Kinga Castillo, ENDOSCOPE TECHNICIAN: Additional HPI, ROS, PE not included below will be deferred to primary provider. Patient is a 29 year old female who presents for evaluation, 03:00 this morning tripped over a dog gate, laid back in bed for a couple of hours but had progressively worsening pain to right posterior thigh extending into the buttock, feels she is only able to keep her hip flexed to nearly 180 degrees, as well as her knee as position of most comfort. 2+ DP/PT pulse. reporting severe pain even with minimal palpation, unable to discern and palpable step offs along the hamstring muscles. Due steve her degree of pain, suspect will have difficulty obtaining any XR imaging from triage Reevaluation(s) Reevaluation #1: 1245 -- patient reports improvement in pain with toradol + valium however still having limited ROM. will trial morphine. 1438 --x-ray right hip/pelvis without fracture. No dislocation. X-ray right femur without fracture. > On re-evaluation, patient reports significant improvement in pain after receiving morphine. She states she feels well. She is now able to actively extend both right hip and right knee. Again, compartments are soft and compressible. I do not have concern for compartment syndrome. I have suspicion for hamstring strain. unlikely complete tear as there are no avulsion fracture identified on imaging. will provide patient with crutches to use over the next few days. naproxen and lidocaine patches sent to pharmacy. advised RICE therapy. Referral to ortho provided. Advised to follow up with PCP for possible physical therapy referral. Patient has remained stable throughout ED visit today. Discussed worrisome signs and symptoms and when to return to the ED. All questions answered at this time. Patient is agreeable with disposition and stable for discharge. her mother is at bedside and will be transporting her home today. 1546 -- I was called to bedside during discharge as patient's pain returned. Unable to stand out of bed, shaking in pain. I re-evaluated patient. Compartments still soft. Difficulty extending right knee and right hip. I did reach out to wellness consultant orthopedic YU Milner who states that the patient does not require any acute intervention from orthopedic standpoint. states admission for pain control may be reasonable. will trial dose of dilaudid with re-evaluation of ROM. 165 -- pain better controlled with dilaudid however ROM still limited. cannot move around in bed without iliciting pain. will reach out to hospitalist to discuss admission for pain control. patient agreeable. 1716 -- spoke with dr. fisher - patient to be admited to medicine for pain control. patient agreeable. Medications Administered Discontinued Medications Generic Name Dose Route Start Last Admin Trade Name Freq PRN Reason Stop Dose Admin Diazepam 5 mg 05/06/25 12:13 05/06/25 12:18 Diazepam 10 Mg/2 Ml Cartridge IVPUSH 05/06/25 12:14 5 mg STAT STA Administration Hydromorphone HCl 1 mg 05/06/25 15:52 05/06/25 16:35 Hydromorphone Hcl 1 Mg/Ml Syringe IVPUSH 05/06/25 15:53 1 mg ONCE ONE Administration Protocol Ketorolac Tromethamine 30 mg 05/06/25 12:08 05/06/25 12:18 Ketorolac Tromethamine 30 Mg/Ml Vial IVPUSH 05/06/25 12:09 30 mg ONCE ONE Administration Morphine Sulfate 4 mg 05/06/25 12:44 05/06/25 12:55 Morphine Sulfate 4 Mg/Ml Cartridge IVPUSH 05/06/25 12:45 4 mg ONCE ONE Administration Protocol Medical Decision Making Medical Decision Making MDM Narrative: 29 year old female with pmhx significant for anemia, hypothyroidism, and asthma presents to the ED today for evaluation of right hip/thigh pain since early this morning. Hypertensive on arrival, vitals are otherwise WNL. on exam right hip and right knee held in flexion. unable to actively extend right hip/knee to straighten leg, limited with passive extension d/t pain. ttp along posterior right thigh from knee to buttock. no TTP over right hip. no step offs. no overlying skin changes or hematoma. compartments soft and compressible. 2+ dp/pt pulse intact. Differential diagnosis includes contusion, hematoma, MSK sprain/strain, fracture. Unlikely compartment syndrome, neurovascular compromise, threat to limb. Plan for pain control, imaging, and re-evaluation. Differential Diagnosis Differential Diagnoses: The differential diagnosis associated with the presentation includes as above. Admission/Observation not indicated. Consult Healthcare Provider Management of the patient was discussed with: Hospitalist (dr. fisher) and Senior Software Tester (katelynn NICHOLAS) Independent Interpretation I performed an independent interpretation of an: Plain X-Ray Interpretation: xr right hip without fracture xr right femur without fracture Radiology Impression Discussion of test interpretation with radiology: I have reviewed the radiologist's reading. Radiologist Impression: Date of Service: 05/06/25 Procedure(s): XR hip RT w PEL1V Accession Number(s): [id number] cc: Jeramy Bernal MD; Brooke Pérez~ CLINICAL HISTORY: R hip buttock pain s p over extension injury AP pelvis, Two views of the right hip. COMPARISON: None provided. FINDINGS: Pelvic ring appears intact. Visualized lower lumbar spine is unremarkable. Umbilical ring present. Visualized portions of the contralateral left hip appear intact. Right hip: Visualized portions of the proximal right femur appears intact. No trabecular disruption or cortical discontinuity. Femoral head is appropriately seated in the acetabulum. IMPRESSION: 1. No radiographic evidence of acute injury to the pelvis and right hip. This document has been electronically signed by: Maicol Stephenson MD on 05/06/2025 14:26:12 Date of Service: 05/06/25 Procedure(s): XR femur RT 2V Accession Number(s): [id number] cc: Jeramy Bernal MD; Brooke Pérez~ CLINICAL HISTORY: R thigh pain s p over extension injury Two views of the right femur. COMPARISON: XR pelvis and right hip dated 05/06/25 at 13:13 EDT FINDINGS: Most proximal aspects of the right femur are viewed on radiographs of the right hip performed at the same time. Femur appears intact. Visualized portions of the right hip and right knee appear intact. No radiopaque foreign body. IMPRESSION: 1. No radiographic evidence of acute injury to the right femur. This document has been electronically signed by: Maicol Stephenson MD on 05/06/2025 14:24:05 Independent Historian Clinical information obtained from an independent historian. History obtained from or confirmed by: Parent (mother) Prescription Management I considered prescription management with: Pain Medication Social Determinants Patient?s care significantly limited by Social Determinants of Health including: Other Social Determinant of Health Procedures Orthopedic Splinting/Casting Injury #1: Side: right Lower Extremity Injury Location: upper leg Other Orthopedic Equipment: crutches Critical Care Time Critical Care Time Critical Care Time: Yes Total Critical Care Time: 37 Attestation: Critical care time in the amount of 37 minutes has been provided to the patient in terms of direct patient care, frequent reevaluation, consultation with ortho and hospitalist, review and interpretation of medical data and results, and management of potentially life-threatening conditions. This is all outside of any medical procedures. Discharge Plan Discharge Clinical Impression: Hamstring injury Qualifiers: Encounter type: initial encounter Laterality: right Qualified Code(s): S76.301A - Unspecified injury of muscle, fascia and tendon of the posterior muscle group at thigh level, right thigh, initial encounter Patient Disposition: Admitted As Inpatient
[2025-05-06 11:25] VITALS: BP 160/90; PULSE 100; RESP 17; TEMP 36.8; O2SAT 98; BMI 30.9
--- OUTSIDE RECORDS SUMMARY | 2025-05-06 12:06 | XMS_ITS | Clinical Summary ---
Author Organization [facility] Address [address] [place] [address] Phone Care Team Providers Care Delivery Driver/Customer Service Name Role Phone Jeramy Bernal MD Primary Care Provider Allergies No known active allergies Medications doxycycline (VIBRAMYCIN) 50 mg capsule Take 1 capsule (50 mg total) by mouth 1 (one) time each day. Active fluticasone propion-salmete roL (ADVAIR HFA) 230-21 mcg/actuation inhaler Inhale 2 puffs by mouth 2 (two) times a day. Rinse mouth with water after use to reduce aftertaste and incidence of candidiasis. Do not swallow. 1 each 2 5 Active albuterol 2.5 mg /3 mL (0.083 %) nebulizer solution Take 3 mL (2.5 mg total) by nebulization every 6 (six) hours if needed for wheezing. 540 mL 1 5 05/16/20 25 Active albuterol HFA (Ventolin HFA) 90 mcg/actuation inhaler Inhale 2 puffs by mouth every 4 (four) hours if needed for wheezing or shortness of breath. 8 g 3 5 02/16/20 26 Active predniSONE (DELTASONE) 20 mg tablet Take 60 mg PO daily for 3 days, then take 40 mg PO daily for 3 days, then 20 mg PO daily for 3 days, then stop 18 tablet 5 Active levothyroxine sodium (Tirosint) 125 mcg capsule Take 1 capsule (125 mcg total) by mouth 1 (one) time each day. 30 each 2 05/17/20 25 Active Active Problems Problem Noted Date Diagnosed Date Memory loss 02/15/2025 SOB (shortness of breath) 02/15/2025 Iron deficiency anemia due to chronic blood [...] Encounters Date Type Department Care Team Description 04/21/2025 10:00 AM EDT Office Visit [facility] Surgery [facility] [address] [phone] Chip Aguillon MD Lipoma of torso (Primary Dx) 04/13/2025 Telephone [facility] [address] [phone] Chip Aguillon MD QUESTIONS/FORMS 03/30/2025 8:00 AM EDT Procedure visit [facility] [address] [phone] Chip Aguillon MD Lipoma of torso (Primary Dx) 03/23/2025 1:32 PM EDT - 03/23/2025 11:59 PM EDT Hospital Encounter [facility] Pulmonary [address] [place] [address] Discharge Disposition: Home or Self Care 03/23/2025 11:29 AM EDT - 03/23/2025 11:59 PM EDT Hospital Encounter Radiology Department - [address] [phone] Memory loss Discharge Disposition: Home or Self Care 02/28/2025 Telephone Adult Medicine [address] [phone] Rhianna Perry [place] 02/15/2025 3:26 PM EDT - 02/15/2025 11:59 PM EDT Hospital Encounter XRAY [address] [phone] Moderate persistent asthma, unspecified whether complicated; SOB (shortness of breath) Discharge Disposition: Home or Self Care 02/15/2025 3:00 PM EDT Office Visit Adult [address] [phone] Dwight Ahmadi MD Moderate persistent asthma with acute exacerbation (Primary Dx); Hypothyroidism, unspecified type; Memory loss; Cannabis use disorder; SOB (shortness of breath) 02/15/2025 Telephone Adult Medicine [address] [phone] Jeramy Bernal MD Shortness of Breath; Nasal Congestion; Cough from Last 3 Months Surgical History Surgery [...] care for your loved ones. For example, registered nurse maternal child or elderly care for an older [...] Sign Reading Time Taken Comments Blood Pressure 134/71 04/21/2025 10:04 AM EDT Pulse 89 04/21/2025 10:04 AM EDT Temperature 37.6 C (99.7 F) 04/21/2025 10:04 AM EDT Respiratory Rate 16 02/15/2025 2:53 PM EDT Oxygen Saturation 99% 08/16/2024 1:16 PM EST Inhaled Oxygen Concentration - - Weight 81.6 kg (180 lb) 04/21/2025 10:04 AM EDT Height 162.6 cm (5' 4 ) 04/21/2025 10:04 AM EDT Body Mass Index 30.9 04/21/2025 10:04 AM EDT Plan of Treatment Upcoming Encounters Date Type Department Care Team (Late st Contact Info) Description 05/15/2025 3:15 PM EDT Office Visit Pulmonolgy - [facility] [address] [phone] Ana Vaughan MD [address] [phone] 08/17/2025 3:00 PM EST Office Visit [facility] Hematology Oncology [address] [place] [phone] Yulia Gusman PA [address] [place] [address] Health Maintenance Due Date Last Done Comments Cervical Cancer Screening: Pap Smear 2014 Pneumococcal Vaccine: Pediatrics (0 to 5 Years) and At-Risk Patients (6 to 49 Years) (2 of 2 - PCV) 06/22/2015 06/22/2014 HIV Screening 09/13/2022 Hepatitis C Screening 09/13/2022 COVID-19 Vaccine (1 - season) 2024 Influenza Vaccine (#1) 2025 2, 09/19/2011, 07/26/2010, Additional history exists Social Influencers of Health Screening 11/15/2025 11/15/2024 [...] 07/06, 05/15/2010 Meningococcal ACWY Vaccine Completed 03/04/2012, Depression Screening Completed 11/15/2024 Hepatitis A Vaccines Aged Out No long er eligible based on patient's age to complete this topic Meningococcal B Vaccine Aged Out No l onger eligible based on patient's age to complete this topic RSV Immunization Patients Under 20 months Aged Out No longer eligible based on patient's age to complete this topic Varicella Vaccines Aged Out No longer eligible based on patient's age to complete this topic Procedures Procedure Name Priority Date/Time Associated Diagnosis Comments TISSUE EXAM Routine 03/30/2025 8:05 AM EDT Lipoma of torso HC SPIROMETRY BRONCHODILATION RESPONSIVENESS PRE/POST BRONCHODILATOR ADMINISTRATION Routine 03/23/2025 2:22 PM EDT Moderate persistent asthma with acute exacerbation MR BRAIN WO CONTRAST Routine 03/23/2025 12:37 PM EDT Memory loss TRIIODOTHYRONINE FREE Routine 02/15/2025 3:45 PM EDT Memory loss FREE THYROXINE WITH REFLEX TO FREE TRIIODOTHYRONINE Routine 02/15/2025 3:45 PM EDT Memory loss THYROID STIMULATING HORMONE WITH REFLEX TO FREE T4 AND FREE T3 Routine 02/15/2025 3:45 PM EDT Memory loss VITAMIN B12 Routine 02/15/2025 3:45 PM EDT Memory loss TREPONEMA PALLIDUM ANTIBODY WITH REFLEX TO RPR AND PARTICLE AGGLUTINATION Routine 02/15/2025 3:45 PM EDT Memory loss XR CHEST 2 VIEWS Routine 02/15/2025 3:34 PM EDT Moderate persistent asthma, unspecified whether complicated SOB (shortness of breath) CBC WITH AUTO DIFFERENTIAL Routine 02/15/2025 2:30 PM EDT Iron deficiency anemia secondary to blood loss (chronic) CBC AND DIFFERENTIAL Routine 02/15/2025 2:30 PM EDT Iron deficiency anemia secondary to blood loss (chronic) IRON AND TIBC Routine 02/15/2025 2:30 PM EDT Iron deficiency anemia secondary to blood loss (chronic) FERRITIN Routine 02/15/2025 2:30 PM EDT Iron deficiency anemia secondary to blood loss (chronic) LIPID PANEL WITH REFLEX TO DIRECT LDL Routine 11/21/2024 12:32 PM EST Screening for lipid disorders from Last 3 Months or Most Recently Relevant to Health Maintenance Results * Tissue exam (03/30/2025 8:05 AM EDT) Final Diagnosis Soft tissue, trunk-excision: -LIPOMA 04/03/2025 1:16 PM EDT [facility] Clinical Information Lipoma of torso D17.1 Left lower costal /upper quadrant 04/03/2025 1:16 PM EDT [facility] Gross Description A. Trunk, excision: Labeled trunk . Received in formalin is a 6.3 x 4.2 x 2.8 cm yellow lobular portion of adipose tissue. The cut surfaces are comprised of glistening yellow lobular adipose tissue with no areas of hemorrhage or necrosis. Lottery Manager sections are submitted in two cassettes, three pieces each. RANDY 04/03/2025 1:16 PM EDT [facility] Disclaimer Unless otherwise specified, all tissue is 10% NB formalin fixed and paraffin embedded. 04/03/2025 1:16 PM EDT [facility] Tissue Trunk structure / Unknown Non-blood Collection / Unknown 03/30/2025 8:05 AM EDT 03/30/2025 8:21 AM EDT Comment:Left lower costal /u pper quadrant us Chip Aguillon MD LAB PATHOLOGY ORDERABLES Fi nal Result [facility] [address] [place] [address], * Pulmonary function testing: Spirometry, Spirometry with Bronchodilator, Carbon Monoxide Diffusing Capacity (03/23/2025 2:22 PM EDT) Narrative Syd Cruz MD - 03/25/2025 3:00 PM EDT Table formatting from the original result was not included. Images from the original result were not included. [facility] [address] [place] [address] Pulmonary Functions Report Date of service: 03/23/25 Patient Name: Crissy Cannon Date of : 1995 Age: 29 y.o. Gender: female Ordering Provider: Dwight Ahmadi MD Diagnosis listed on Order: Moderate persistent asthma with acute exacerbation Reason for Exam: Order Questions Answers Reason for Exam: asthma Which PFTs would you like to perform? Spirometry,Spirometry with Bronchodilator,Carbon Monoxide Diffusing Capacity SPIROMETRY: FEV1 is 40 % predicted and an FVC is 57 % predicted. The FEV1/FVC ratio is 70% of normal, significant response to bronchodilators noted. LUNG VOLUMES: Total lung capacity (TLC): 89% predicted. Residual volume (RV): 180% predicted RV/TLC ratio is 204% of normal DIFFUSION CAPACITY: DLCO 99% predicted. DlCO/VA 124% of predicted COMPARISONS: INTERPRETATION: This pulmonary function test shows severe obstructive changes with significant improvement post albuterol the DLCO in this case is normal. The findings are consistent with reactive airway disease such as asthma Syd Cruz MD us Dwight Ahmadi MD PFT ORDERABLES Final Resul t * MR Brain wo Contrast (03/23/2025 12:37 PM EDT) Anatomical Region Laterality Modality Head and Neck Magnetic Resonan ce 03/23/2025 1:45 PM EDT Impressions 03/23/2025 2:46 PM EDT Impression: 1. No acute intracranial process. -------- FINAL REPORT -------- Dictated By: Amparo Bhatti Dictated Date: 03/23/2025 13:45 ET Assigned Physician: Amparo Bhatti Reviewed and Electronically Signed By: Amparo Bhatti Signed Date: 03/23/2025 14:46 ET Workstation ID: [id number] Transcribed By: Self Edit Transcribed Date: 03/23/2025 13:54 ET Narrative 03/23/2025 2:46 PM EDT MRI BRAIN WITHOUT CONTRAST Clinical Statement: memory loss Comparison: None Technique: Multiplanar, multisequence MR images of the brain were obtained without contrast. Findings: There is no evidence of diffusion restriction. Trace white matter hyperintensities within the supraventricular and periventricular region consistent with microvascular ischemic changes. Intracranial flow voids are within normal limits. The ventricular system is normal in size and morphology. The basilar cisterns are within normal limits the craniocervical junction is grossly within normal limits. The orbits and globes are within normal limits. Trace fluid within the paranasal sinuses. Partial empty sella. Procedure Note Amparo Bhatti MD - 03/23/2025 MRI BRAIN WITHOUT CONTRAST Clinical Statement: memory loss Comparison: None Technique: Multiplanar, multisequence MR images of the brain wereobtained without contrast. Findings: There is no evidence of diffusion restriction. Trace whitematter hyperintensities within the supraventricular and periventricularregion consistent with microvascular ischemic changes. Intracranial flowvoids are within normal limits. The ventricular system is normal in sizeand morphology. The basilar cisterns are within normal limits thecraniocervical junction is grossly within normal limits. The orbits andglobes are within normal limits. Trace fluid within the paranasal sinuses.Partial empty sella. IMPRESSION: Impression: 1. No acute intracranial process. -------- FINAL REPORT -------- Dictated By: Amparo Bhatti Dictated Date: 03/23/2025 13:45 ET Assigned Physician: Amparo Bhatti Reviewed and Electronically Signed By: Amparo Bhatti Signed Date: 03/23/2025 14:46 ET Workstation ID: [id number] Transcribed By: Self Edit Transcribed Date: 03/23/2025 13:54 ET Dwight Ahmadi MD IMG MRI PROCEDURES Final Re sult * Treponema pallidum antibody with reflex to RPR and particle agglutination (02/15/2025 3:45 PM EDT) T. Pallidum Antibodies Negative Negative LAB CHEMISTRY METHOD 02/15/2025 7:34 PM EDT [facility] Blood Venous blood specimen / Unknown Venipuncture / Unknown 02/15/2025 3:45 PM EDT 02/15/2025 3:45 PM EDT Dwight Ahmadi MD LAB BLOOD ORDERABLES Final Result Performing Organization Address City/[facility]/ZIP Co de Phone Number [facility] [address] [place] [address], [place] [phone] * (ABNORMAL) Thyroid stimulating hormone with reflex to free t4 and free t3 (02/15/2025 3:45 PM EDT) TSH 17.87(H) 0.40 - 4.00 mcIU/mL LAB CHEMISTRY METHOD 02/15/2025 7:23 PM EDT [facility] Blood Venous blood specimen / Unknown Venipuncture / Unknown 02/15/2025 3:45 PM EDT 02/15/2025 3:45 PM EDT Dwight Ahmadi MD LAB BLOOD ORDERABLES Final Result Performing Organization Address [facility]/ZIP Co de Phone Number [facility] [address] [place] [address], [place] [phone] * Free thyroxine with reflex to free triiodothyronine (02/15/2025 3:45 PM EDT) Free T4 1.04 0.70 - 1.80 ng/dL LAB CHEMISTRY METHOD 02/15/2025 8:20 PM EDT [facility] Blood Venous blood specimen / Unknown Venipuncture / Unknown 02/15/2025 3:45 PM EDT 02/15/2025 3:45 PM EDT Dwight Ahmadi MD LAB BLOOD ORDERABLES Final Result Performing Organization Address City/[facility]/ZIP Co de Phone Number [facility] [address] [place] [address], [place] [phone] * Triiodothyronine free (02/15/2025 3:45 PM EDT) T3, Free 239 230 - 420 pcg/dL LAB CHEMISTRY METHOD 02/15/2025 8:48 PM EDT [facility] Blood Venous blood specimen / Unknown Venipuncture / Unknown 02/15/2025 3:45 PM EDT 02/15/2025 3:45 PM EDT Dwight Ahmadi MD LAB BLOOD ORDERABLES Final Result Performing Organization Address City/[facility]/ZIP Co de Phone Number [facility] [address] [place] [address], [place] [phone] * Vitamin B12 (02/15/2025 3:45 PM EDT) Vitamin B-12 550 250 - 900 pcg/mL LAB CHEMISTRY METHOD 02/15/2025 7:01 PM EDT [facility] Blood Venous blood specimen / Unknown Venipuncture / Unknown 02/15/2025 3:45 PM EDT 02/15/2025 3:45 PM EDT Dwight Ahmadi MD LAB BLOOD ORDERABLES Final Result Performing Organization Address City/[facility]/ZIP Co de Phone Number [facility] [address] [place] [address], [place] [phone] * XR Chest 2 Views (02/15/2025 3:34 PM EDT) Anatomical Region Laterality Modality Body Radiographic Raisa ging 02/15/2025 3:39 PM EDT Impressions 02/15/2025 3:42 PM EDT No acute pulmonary pathology. -------- FINAL REPORT -------- Dictated By: Urszula Benítez Dictated Date: 02/15/2025 15:39 ET Assigned Physician: Urszula Benítez Reviewed and Electronically Signed By: Urszula Benítez Signed Date: 02/15/2025 15:42 ET Workstation ID: [id number] Transcribed By: Self Edit Transcribed Date: 02/15/2025 15:39 ET Narrative 02/15/2025 3:42 PM EDT CHEST, TWO VIEWS HISTORY: Shortness of breath . TECHNIQUE: Frontal and lateral views of the chest. PRIOR: None. FINDINGS: The lungs are clear. No pleural effusion is seen. No pneumothorax is seen. The cardiac diameter is within normal limits. No acute or aggressive appearing bony abnormalities are seen. Procedure Note Urszula Benítez MD - 02/15/2025 CHEST, TWO VIEWS HISTORY: Shortness of breath . TECHNIQUE: Frontal and lateral views of the chest. PRIOR: None. FINDINGS: The lungs are clear. No pleural effusion is seen. No pneumothorax is seen. The cardiac diameter is within normal limits. No acute or aggressive appearing bony abnormalities are seen. IMPRESSION: No acute pulmonary pathology. -------- FINAL REPORT -------- Dictated By: Urszula Benítez Dictated Date: 02/15/2025 15:39 ET Assigned Physician: Urszula Benítez Reviewed and Electronically Signed By: Urszula Benítez Signed Date: 02/15/2025 15:42 ET Workstation ID: [id number] Transcribed By: Self Edit Transcribed Date: 02/15/2025 15:39 ET us Dwight Ahmadi MD IMG XR PROCEDURES Final Res ult * (ABNORMAL) CBC auto differential (02/15/2025 2:30 PM EDT) WBC 9.0 4.8 - 10.8 K/mcL LAB HEMETOLOGY METHOD 02/15/2025 4:42 PM EDT [facility] RBC 4.50 3.80 - 4.80 M/mcL LAB HEMETOLOGY METHOD 02/15/2025 4:42 PM EDT [facility] Hemoglobin 12.0 11.5 - 16.0 g/dL LAB HEMETOLOGY METHOD 02/15/2025 4:42 PM EDT [facility] Hematocrit 39.0 35.0 - 47.0 % LAB HEMETOLOGY METHOD 02/15/2025 4:42 PM EDT [facility] MCV 87.6 79.0 - 98.0 FL LAB HEMETOLOGY METHOD 02/15/2025 4:42 PM EDT [facility] MCH 27.0 27.0 - 32.0 pcg LAB HEMETOLOGY METHOD 02/15/2025 4:42 PM [facility] MCHC 30.8(L) 32.0 - 37.0 g/dL LAB [facility]EMETOLOGY [facility] RDW 14.9 11.0 - 15.0 % LAB HEMETOLOGY METHOD 02/15/2025 4:42 PM [facility] Platelets 371 130 - 400 K/mcL LAB HEMETOLOGY METHOD 02/15/2025 4:42 PM [facility] MPV 10.2 7.0 - 11.0 FL LAB HEMETOLOGY METHOD [facility] NRBC 0.0 <1.0 % LAB HEMETOLOGY METHOD 02/15/2025 4:42 PM [facility] NRBC Absolute 0.00 <0.10 K/mcL LAB HEMETOLOGY METHOD 02/15/2025 4:42 PM [facility] Neutrophils Relative 71.5 % LAB HEMETOLOGY METHOD 02/15/2025 4:42 PM [facility] Lymphocytes Relative 18.3 % LAB HEMETOLOGY METHOD [facility] Monocytes Relative 7.9 % LAB HEMETOLOGY METHOD [facility] Eosinophils Relative 1.6 % LAB HEMETOLOGY METHOD 02/15/2025 4:42 PM [facility] Basophils Relative 0.4 % LAB HEMETOLOGY METHOD 02/15/2025 4:42 PM [facility] Immature Granulocytes Relative 0.3 % LAB HEMETOLOGY METHOD 02/15/2025 4:42 PM EDT [facility] Neutrophils Absolute 6.45 1.50 - 7.00 K/mcL LAB HEMETOLOGY METHOD 02/15/2025 4:42 PM EDT [facility] Lymphocytes Absolute 1.65 1.00 - 5.00 K/mcL LAB HEMETOLOGY METHOD 02/15/2025 4:42 PM EDT [facility] Monocytes Absolute 0.71 0.20 - 1.00 K/mcL LAB HEMETOLOGY METHOD 02/15/2025 4:42 PM EDT [facility] Eosinophils Absolute 0.14 0.00 - 0.50 K/mcL LAB HEMETOLOGY METHOD 02/15/2025 4:42 PM EDT [facility] Basophils Absolute 0.04 0.00 - 0.20 K/mcL LAB HEMETOLOGY METHOD 02/15/2025 4:42 PM EDT [facility] Immature Granulocytes Absolute 0.03 0.00 - 0.03 K/mcL LAB HEMETOLOGY METHOD 02/15/2025 4:42 PM EDT [facility] Blood Venous blood specimen / Unknown Venipuncture / Unknown 02/15/2025 2:30 PM EDT 02/15/2025 2:30 PM EDT us Yulia NICHOLAS LAB BLOOD ORDERABLES Final Re sult [facility] [address] [place] [address], * (ABNORMAL) Iron and TIBC (02/15/2025 2:30 PM EDT) Iron 21(L) 40 - 150 mcg/dL LAB CHEMISTRY METHOD 02/15/2025 6:39 PM EDT [facility] TIBC 423 250 - 450 mcg/dL LAB CHEMISTRY METHOD 02/15/2025 6:39 PM EDT [facility] Iron Saturation 5(L) 15 - 50 % LAB CHEMISTRY METHOD 02/15/2025 6:39 PM EDT [facility] Blood Venous blood specimen / Unknown Venipuncture / Unknown 02/15/2025 2:30 PM EDT 02/15/2025 2:30 PM EDT Yulia NICHOLAS LAB BLOOD ORDERABLES Final Re sult Performing Organization Address City/[facility]/ZIP Co de Phone Number [facility] [address] [place] [address], [place] [phone] * Ferritin (02/15/2025 2:30 PM EDT) Ferritin 10 8 - 252 ng/mL LAB CHEMISTRY METHOD 02/15/2025 6:39 PM EDT [facility] Blood Venous blood specimen / Unknown Venipuncture / Unknown 02/15/2025 2:30 PM EDT 02/15/2025 2:30 PM EDT Yulia NICHOLAS LAB BLOOD ORDERABLES Final Re sult Performing Organization Address [facility]/ZIP Co de Phone Number [facility] [address] [place] [address], [place] [phone] * (ABNORMAL) Lipid panel with reflex to direct LDL (11/21/2024 12:32 PM EST) Cholesterol 185 0 - 200 mg/dL LAB CHEMISTRY METHOD 11/21/2024 2:43 PM EST [facility] Triglycerides 74 0 - 150 mg/dL LAB CHEMISTRY METHOD 11/21/2024 2:43 PM EST [facility] HDL 52 >=40 mg/dL LAB CHEMISTRY METHOD 11/21/2024 2:43 PM EST [facility] LDL Calculated 118(H) 0 - 100 mg/dL LAB CHEMISTRY METHOD 11/21/2024 2:43 PM EST [facility] VLDL Cholesterol Yoel 14.8 mg/dL LAB CHEMISTRY METHOD 11/21/2024 2:43 PM EST [facility] Non HDL Chol. (LDL+VLDL) 133 <145 mg/dL LAB CHEMISTRY METHOD 11/21/2024 2:43 PM EST [facility] Chol/HDL Ratio 3.6 0.0 - 4.4 LAB CHEMISTRY METHOD 11/21/2024 2:43 PM EST [facility] Blood Venous blood specimen / Unknown Venipuncture / Unknown 11/21/2024 12:32 PM EST 11/21/2024 12:32 PM EST Jeramy Bernal MD LAB BLOOD ORDERABLES F inal Result [facility] [address] [place] [address], from Last 3 Months or Most Recently Relevant to Health Maintenance Insurance [facility] Care Teams Delivery Driver/Customer Service Relationship Specialty Start Date End Date Jeramy Bernal MD [address] [place] [address] PCP - General Internal Medicine 06/27/22
--- OUTSIDE RECORDS SUMMARY | 2025-05-06 12:06 | XMS_ITS | Clinical Summary ---
Author Organization [employer] Address [address] [facility] 7 [place] [address] Care Team Providers Care Tight Barrel Inspector Name Role Phone Unavailable Primary Care Provider [...] 0.083% nebulizer solution 2.5 mg. Active Immunizations Immunization Administration Dates Next Due DTaP 05/29/1999, 8,07/19/1996,12/02/18 94,1993 DTaP / HiB / IPV 07/26/2010,07/19/1996, 3 HPV, Quadrivalent 03/04/2012,07/26/2010,05/15/20 10 Hep B, Adolescent or Pediatric 1993,1992,1993 MMR 11/08/1997,07/19/1996 Meningococcal MPSV4 03/04/2012,12/02/2005 OPV, Trivalent 11/08/1997, 6,1993,09/03/19 93 PPD Test 07/26/2014 Pneumococcal [...] 1993 HIV Screening 1993 SDOH Screening 1993 Disability Screening 1993 Alcohol/Substance Use Screening 2005 Family Planning (PISQ) 2008 Hepatitis C Screening 2011 Pap Smear 2014 Pneumococcal Vaccine: Pediatrics (0 to 5 Years) and At-Risk Patients (6 to 49) Years (2 of 2 - PCV) 06/22/2015 06/22/2014 DTaP/Tdap/Td Vaccines (8 - Td or Tdap) 07/26/2020 07/26/2010, 12/02/2005, 05/29/1999, Additional history exists Dental Oral Exam 05/18/2023 11/17/2022 Cervical Cancer Screening 2023 HPV/Cotest 2023 Tobacco Screening 11/17/2023 11/17/2022 Dental X-Ray: Bitewings 11/18/2023 11/17/2022 COVID-19 Vaccine ( - season) 2024 Influenza Vaccine (#1) 2025 Dental X-Ray: Full Mouth 11/18/2025 11/17/2022 Zoster [...] Most Recently Relevant to Health Maintenance Insurance [facility] MEDICAID STAND ADULT [address] [place] [address] [address] [place] [address] [address] [place] [address]
--- OUTSIDE RECORDS SUMMARY | 2025-05-06 12:06 | XMS_ITS | Clinical Summary ---
Author Organization [facility] Address [address] [place] [address] Care Team Providers Care Presales Consultant Name Role Phone Jeramy Bernal Primary Care [...] 89 06/30/2023 2:47 PM EDT Temperature 36.6 C (97.8 F) 02/11/2024 1:20 PM EDT Respiratory Rate 18 06/30/2023 2:47 PM EDT [...] 05/29/1999, Additional history exists Influenza Vaccine (#1) 2025 9, 10/19/2007, 11/13/2004 Hepatitis B Vaccines Completed 1993, 1993, 1993 RSV Ped < 20 months Aged Out No longe r eligible based on patient's age to complete this topic Care Teams Presales Consultant Relationship Specialty Start Date End Date Jeramy Bernal MBBS [address] [place] [address] PCP - General Internal Medicine 03/25/23
--- OUTSIDE RECORDS SUMMARY | 2025-05-06 12:06 | XMS_ITS | Encounter Summary ---
Author Organization [facility] Address [address] [place] [id number] Phone Care Team Providers Care Reel Slitter Name Role Phone Arleth Noel NP Primary Care Provider Encounter Details Date Type Department Care Team (Late st Contact Info) Description 12/17/2011 Documentation [facility] [place] [facility] [address] [place], [place] [id number] Family Medicine, Physician [address] [place], [place] [phone] Social History Tobacco Use Types Packs/Day Years [...] on filedocumented in this encounter Care Teams Reel Slitter Relationship Specialty Start Date End Date Arleth Noel NP PCP - General 05/15/17 documented as of this encounter
[2025-05-06] MEDS: diazePAM 10 MG/2 ML CARTRIDGE 5 MG IVPUSH (12:18)
--- NOTE | 2025-05-06 17:50 | P.HPHOSP_ITS ---
History of Present Illness Date of Service: 05/06/25 Chief Complaint: Right Leg Pain 29 year old female with pmhx significant for anemia, hypothyroidism, and asthma, recent lipoma surgery with wound infection. She presents to the ED today for evaluation of right hip/thigh pain after trying to step over a dog and her right leg got cought resulting in fall with her legs split and landed on right leg and started having pain in the back of the right tigh and going to the buttock area. She described that pain as excruciating and now tih difficulty ambulating. Femur xray, hip xray no fracture, she has some bruise on leg. She has received toradol, morphine, valium and dilaudid to achieve some pain control but still not able to walk Review of Systems 2 Review of Systems: Gen: no fever Resp: no sob, no cough CV: no chest, no WILLS, no leg edema GI: No n/v, no abd pain Neuro: No confusion MSK: right tight pain radiating to the groin Yes all other systems are reviewed and are negative [facility] Medical History Anemia Hypothyroid Asthma Family History Mother Breast cancer Hypertension Maternal Grandmother Hypertension High cholesterol Surgical History No pertinent past surgical history Social History Household Members: None Housing: House Alcohol intake: current Alcohol intake frequency: a few times a month Alcohol type: hard liquor Patient Tobacco Use Status: Never used Tobacco Smoked in Last 30 Days: No e-Cigarette/Vaping Use: Never Used Use of substances other than those prescribed or required for medical reasons: Yes Substance Use Type: Marijuana Advance Directives: No Advance Directives Information Provided: No Do you have a plan to hurt others: No Plan Meds Allergies Allergy/AdvReac Type Severity Reaction Status Date / Time No Known Allergies Allergy Verified 05/06/25 11:27 Active Medications: Current Medications Acetaminophen (Acetaminophen 325 Mg Tablet) 650 mg PO Q6H PRN PRN Reason: Pain, Mild 1-3,fever,headache Calcium Carbonate (Calcium Carbonate 750 Mg Tab.Chew) 750 mg PO Q4H PRN PRN Reason: Heartburn Magnesium Hydroxide (Milk Of Magnesia 30 Ml Oral.Susp) 30 ml PO DAILY PRN PRN Reason: Constipation Melatonin (Melatonin 3 Mg Tablet) 6 mg PO BEDTIME PRN PRN Reason: Insomnia Sodium Chloride (0.9 % Sodium Chloride Flush 3 Ml Syringe) 3 ml IVFLUSH QSHIFT [facility] Home Medications ?Medication ?Instructions ?Recorded ?Confirmed ?Last Taken ?Type doxycycline hyclate 50 mg capsule 50 mg PO DAILY 02/2305/06/25 Unknown History acetaminophen 500 mg tablet 1,000 mg PO Q6H PRN Pain 0 05/06/25 05/06/25 Unknown History albuterol sulfate 90 mcg/actuation 2 puff inhalation Q 4H PRN 05/06/25 05/06/25 Unknown History aerosol inhaler Shortness Of Breath Or Wheez ing fluticasone propionate 230 2 puff inhalation BID PRN 0 05/06/25 05/06/25 Unknown History mcg-salmeterol 21 mcg/actuation Shortness Of Breath Or Wheezing HFA inhaler levothyroxine 175 mcg tablet 175 mcg PO MOTUWETHFRSA 0 05/06/25 05/06/25 05/06/25 History levothyroxine 175 mcg tablet 262.5 mcg PO COLLINS 05/06/25 05/06/25 Unknown History Physical Exam 2 Vital Signs and Narrative: Vital Signs: Last Vital Signs Temp 98.3 F 05/06/25 11:25 Pulse 100 05/06/25 11:25 Resp 17 05/06/25 11:25 BP 160/90 H 05/06/25 11:25 Pulse Ox 98 05/06/25 11:25 O2 Del Method Room Air 05/06/25 11:25 BMI result Body Mass Index 30.9 Const: Other: General: AO X 3, no acute distress Resp: CTA bilateral CVS: S1,S2,RRR GI: +BS, NT, no distention Skin: No rash Neuro: motor grossly intact Psych: appropriate affect Results Labs 05/07/25 07:54 Assessment and Plan (1) Hamstring injury: Qualifiers: Encounter type: initial encounter Laterality: right Qualified Code(s): S76.301A - Unspecified injury of muscle, fascia and tendon of the posterior muscle group at thigh level, right thigh, initial encounter Status: Acute Plan with fall with possible right hamstring injury, no fracture on imaginng Plan: Observation, pain management with dilaudis, muslce relaxer. orhto consult in the morning. She may need further imaging to exclude ocult fracture, or ligamental injury. Continue home chronic meds full code regular diet Quality Stroke Does the patient have a stroke diagnosis?: No VTE Prior VTE?: No VTE Risk Level:: Medical - low VTE Device Contraindication: Treatment Not Indicated VTE Drug Contraindication: Treatment Not Indicated
--- NOTE | 2025-05-06 18:23 | PHA.MEDREC ---
Addendum entered by Mirtha Cosme RPh 05/06/25 18:36: reviewed by [facility]. Original Note: Pharmacy Consult ? Medication Reconciliation Pharmacy has completed the medication reconciliation. Spoke with patient to confirm. She takes levothyroxine 1 tab Thursday-Thursday, on Thursday she takes 1 + 1/2 tab. She takes doxycycline 50 mg daily for Hidradenitis Suppurativa (LF 02/26 x30 DS). She is not taking oxcarbazepine or NuvaRing.
--- NOTE | 2025-05-06 20:37 | MHC.EDTECH ---
changed the patient augustin. Patient asked for more pain meds due to her right knee in severe pain. Told her nurse and her nurse is with another patient and that same nurse asked me to see if another nurse can give her a PRN. Told another nurse and she will look if she has a PRN ordered
[2025-05-06 20:41] VITALS: BP 121/94; PULSE 92; RESP 20; O2SAT 98
[2025-05-06 22:11] VITALS: BP 142/82; PULSE 85; RESP 20; TEMP 36.7; O2SAT 98
[2025-05-06] MEDS: 0.9 % Sodium Chloride Flush 3 ML SYRINGE IVFLUSH (23:54)
[2025-05-06] MEDS: oxyCODONE HCl Immed Release 5 MG TABLET PO (23:54)
[2025-05-07 03:54] VITALS: PULSE 97; RESP 20; TEMP 37.1; O2SAT 97
[2025-05-07] MEDS: oxyCODONE HCl Immed Release 5 MG TABLET PO ×2 (05:55→14:23)
[2025-05-07 08:00] VITALS: BP 120/61; PULSE 55; RESP 17; TEMP 36.6; O2SAT 96
[2025-05-07] MEDS: 0.9 % Sodium Chloride Flush 3 ML SYRINGE IVFLUSH (08:15)
[2025-05-07 08:51] LABS: Creatinine Clr Calc Pharmacy 120.4; Estimated Glomerular Filt Rate > 60
--- NOTE | 2025-05-07 09:31 | HO.PM.IMPN ---
Subjective Subjective Date of Service: 05/07/25 Interval History: Still having lot of pain and difficulty straightening the right leg Physical Exam Vital Signs: Vital Signs: Last Vital Signs Temp 97.9 F 05/07/25 08:00 Pulse 55 05/07/25 08:00 Resp 17 05/07/25 08:00 BP 120/61 05/07/25 08:00 Pulse Ox 96 05/07/25 08:00 O2 Del Method Room Air 05/07/25 08:00 BMI result Body Mass Index 30.9 unchanged Ext: +right hip and right knee held in flexion. unable to actively extend right hip/knee to straighten leg, limited with passive extension d/t pain. ttp along posterior right thigh from knee to buttock. no TTP over right hip. no step offs. no overlying skin changes or hematoma. compartments soft and compressible. 2+ dp/pt pulse intact. Neuro: AOx3. Normal speech. Objective Data Active Medications Acetaminophen (Acetaminophen 325 Mg Tablet) 650 mg PO Q6H PRN PRN Reason: Pain, Mild 1-3,fever,headache Albuterol Sulfate (Albuterol Sulfate (0.083%) 2.5 Mg/3 Ml Vial.Neb) 2.5 mg INHALE Q4H PRN PRN Reason: bronchospasm Albuterol Sulfate (Albuterol Sulfate 90 Mcg 8 Gm Inhaler) 2 puff INHALE Q4H PRN PRN Reason: Shortness Of Breath Or Wheezing Calcium Carbonate (Calcium Carbonate 750 Mg Tab.Chew) 750 mg PO Q4H PRN PRN Reason: Heartburn Carisoprodol (Carisoprodol 350 Mg Tablet) 350 mg PO TID PRN PRN Reason: Muscle Spasm Enoxaparin Sodium (Enoxaparin Sodium 40 Mg/0.4 Ml Syringe) 40 mg SUBCUT Q24H MIR Last Admin: 05/07/25 08:13 Dose: 40 mg Documented By: LEFEBMARIBEL Fluticasone/Vilanterol (Fluticasone/Vilanterol 200/25 Blst.W.Dev) 1 puff INHALE RDAILY PRN PRN Reason: Shortness Of Breath Or Wheezing Hydromorphone HCl (Hydromorphone Hcl 0.5 Mg/0.5 Ml Syringe) 0.5 mg IVPUSH Q4H PRN; Protocol PRN Reason: Pain, Severe (Pain Scale 7-10) Last Admin: 05/07/25 07:34 Dose: 0.5 mg Documented By: SANNA Levothyroxine Sodium (Levothyroxine Sodium 175 Mcg Tablet) 175 mcg PO MoTuWeThFrSa@0600 [facility] Levothyroxine Sodium (Levothyroxine Sodium 175 Mcg Tablet) 262.5 mcg PO Wilson@0600 [facility] Last Admin: 05/07/25 05:57 Dose: 262.5 mcg Documented By: NAM Comments: pt states need meds today Magnesium Hydroxide (Milk Of Magnesia 30 Ml Oral.Susp) 30 ml PO DAILY PRN PRN Reason: Constipation Melatonin (Melatonin 3 Mg Tablet) 6 mg PO BEDTIME PRN PRN Reason: Insomnia Non-Formulary Medication (Doxycycline Hyclate) 50 mg PO DAILY MIR Oxycodone HCl (Oxycodone Hcl Immed Release 5 Mg Tablet) 5 mg PO Q6H PRN PRN Reason: Pain, Moderate(Pain Scale 4-6) Last Admin: 05/07/25 05:55 Dose: 5 mg Documented By: NAM Sodium Chloride (0.9 % Sodium Chloride Flush 3 Ml Syringe) 3 ml IVFLUSH QSHIFT [facility] Last Admin: 05/07/25 08:15 Dose: 3 ml Documented By: SANNA Labs 05/07/25 07:54 Labs: Laboratory Results - last 24 hr 05/07/25 05/07/25 07:54 08:23 Hold Purple Top SEE NOTE Estim Creat Clear Calc 120.4 Estimated GFR > 60 Assessment and Plan (1) Hypothyroid: Status: Acute (2) Hamstring injury: Status: Acute Plan with fall with possible right hamstring injury, no fracture on imaginng Plan: Observation, pain management with dilaudis, muslce relaxer. orhto consult in the morning. She may need further imaging to exclude ocult fracture, or ligamental injury. May need MRI Hypothyroidism continue levothyroxine Continue home chronic meds full code regular diet Quality Stroke Does the patient have a stroke diagnosis?: No VTE Prior VTE?: No VTE Risk Level:: Medical - low VTE Device Contraindication: Treatment Not Indicated VTE Drug Contraindication: Treatment Not Indicated
[2025-05-07 09:54] LABS: Hematocrit 34.8 % (37.0-47.0); Hemoglobin 11.4 g/dl (12.0-16.0); Mean Corpuscular HGB Conc 32.8 g/dl (31.0-35.0); Mean Corpuscular Hemoglobin 27.2 pg (27.0-33.0); Mean Corpuscular Volume 83.1 fL (80.0-98.0); NRBC Abs Auto 0.000 X10*3/uL (0.0-0.012); NRBC Pct Auto 0.0 /100WBC (0.0-0.2); Platelet Count 395 X10*3/uL (160-400); Red Blood Count 4.19 X10*6/uL (4.20-5.50); White Blood Count 8.9 X10*3/uL (4.8-10.8)
--- NOTE | 2025-05-07 10:06 | PM.CNOR ---
History of Present Illness HPI Consult date: 05/07/25 Chief complaint: leg pain Narrative: 29-year-old female admitted to the hospital after a fall early yesterday morning with pain to the right posterior thigh Patient reports that she tripped over a baby gate and ?did the splits? Patient reports that she did go back to bed after this injury originally, states that pain worsened and she came to the hospital Patient was seen in the emergency department yesterday, where she was diagnosed with a hamstring injury and discharge was attempted, however the patient was unable to tolerate pain Admitted for pain management This morning, the patient reports that her pain has improved since yesterday Reports that swelling has also improved since yesterday The patient reports that when her hip and knee are both held in flexion, she has no pain, however when she attempts to extend the hip she feels like ?I have a Charley horse that I can not get rid of Denies feeling pressure-like sensation in the proximal thigh Review of Systems Review of Systems: Yes all other systems are reviewed and are negative COUNT INCLUDES [facility] Past Medical History Medical History Anemia Hypothyroid Asthma Family History Family History Mother Breast cancer Hypertension Maternal Grandmother Hypertension High cholesterol Surgical History Surgical History No pertinent past surgical history Social History Social History Household Members: None Housing: House Alcohol intake: current Alcohol intake frequency: a few times a month Alcohol type: hard liquor Patient Tobacco Use Status: Never used Tobacco Smoked in Last 30 Days: No e-Cigarette/Vaping Use: Never Used Use of substances other than those prescribed or required for medical reasons: Yes Substance Use Type: Marijuana Advance Directives: No Advance Directives Information Provided: No Do you have a plan to hurt others: No Plan Meds Allergies Allergy/AdvReac Type Severity Reaction Status Date / Time No Known Allergies Allergy Verified 05/06/25 11:27 Active Medications: Current Medications Acetaminophen (Acetaminophen 325 Mg Tablet) 650 mg PO Q6H PRN PRN Reason: Pain, Mild 1-3,fever,headache Albuterol Sulfate (Albuterol Sulfate (0.083%) 2.5 Mg/3 Ml Vial.Neb) 2.5 mg INHALE Q4H PRN PRN Reason: bronchospasm Albuterol Sulfate (Albuterol Sulfate 90 Mcg 8 Gm Inhaler) 2 puff INHALE Q4H PRN PRN Reason: Shortness Of Breath Or Wheezing Calcium Carbonate (Calcium Carbonate 750 Mg Tab.Chew) 750 mg PO Q4H PRN PRN Reason: Heartburn Carisoprodol (Carisoprodol 350 Mg Tablet) 350 mg PO TID PRN PRN Reason: Muscle Spasm Enoxaparin Sodium (Enoxaparin Sodium 40 Mg/0.4 Ml Syringe) 40 mg SUBCUT Q24H [facility] Last Admin: 05/07/25 08:13 Dose: 40 mg Fluticasone/Vilanterol (Fluticasone/Vilanterol 200/25 Blst.W.Dev) 1 puff INHALE RDAILY PRN PRN Reason: Shortness Of Breath Or Wheezing Hydromorphone HCl (Hydromorphone Hcl 0.5 Mg/0.5 Ml Syringe) 0.5 mg IVPUSH Q4H PRN; Protocol PRN Reason: Pain, Severe (Pain Scale 7-10) Last Admin: 05/07/25 07:34 Dose: 0.5 mg Levothyroxine Sodium (Levothyroxine Sodium 175 Mcg Tablet) 175 mcg PO MoTuWeThFrSa@0600 [facility] Levothyroxine Sodium (Levothyroxine Sodium 175 Mcg Tablet) 262.5 mcg PO Collins@0600 [facility] Last Admin: 05/07/25 05:57 Dose: 262.5 mcg Magnesium Hydroxide (Milk Of Magnesia 30 Ml Oral.Susp) 30 ml PO DAILY PRN PRN Reason: Constipation Melatonin (Melatonin 3 Mg Tablet) 6 mg PO BEDTIME PRN PRN Reason: Insomnia Non-Formulary Medication (Doxycycline Hyclate) 50 mg PO DAILY [facility] Oxycodone HCl (Oxycodone Hcl Immed Release 5 Mg Tablet) 5 mg PO Q6H PRN PRN Reason: Pain, Moderate(Pain Scale 4-6) Last Admin: 05/07/25 05:55 Dose: 5 mg Sodium Chloride (0.9 % Sodium Chloride Flush 3 Ml Syringe) 3 ml IVFLUSH QSHIFT [facility] Last Admin: 05/07/25 08:15 Dose: 3 ml Home Medications ?Medication ?Instructions ?Recorded ?Confirmed ?Last Taken ?Type doxycycline hyclate 50 mg capsule 50 mg PO DAILY 02/23/23 05/06/25 Unknown History acetaminophen 500 mg tablet 1,000 mg PO Q6H PRN Pain 05/06/25 05/06/25 Unknown History albuterol sulfate 90 mcg/actuation 2 puff inhalation Q4H PRN 05/06/25 05/06/25 Unknown History aerosol inhaler Shortness Of Breath Or Wheezing fluticasone propionate 230 2 puff inhalation BID PRN 05/06/25 05/06/25 Unknown History mcg-salmeterol 21 mcg/actuation Shortness Of Breath Or Wheezing HFA inhaler levothyroxine 175 mcg tablet 175 mcg PO MOTUWETHFRSA 05/06/25 05/06/25 05/06/25 History levothyroxine 175 mcg tablet 262.5 mcg PO COLLINS 05/06/25 05/06/25 Unknown History Physical Exam Vital Signs: Vital Signs: Last Vital Signs Temp 97.9 F 05/07/25 08:00 Pulse 55 05/07/25 08:00 Resp 17 05/07/25 08:00 BP 120/61 05/07/25 08:00 Pulse Ox 96 05/07/25 08:00 O2 Del Method Room Air 05/07/25 08:00 BMI result Body Mass Index 30.9 Extrem: Other: Patient's right lower extremity normal to inspection No evidence of bunching of the hamstring muscles No erythema, ecchymosis, edema noted No lacerations, abrasions, open areas No evidence of infection Patient reports tenderness to palpation of the posterior thigh along the entire hamstring, worst in the central to proximal area of the thigh Significant pain with active extension of the right hip, is able to get to approximately 20-30 degrees before pain becomes unbearable Pain also associated with extension of the right knee, is able to extend to approximately 20 degrees Compartments of the right thigh soft Distal sensation intact Capillary refill brisk Results Labs 05/07/25 08:23 05/07/25 07:54 Labs: Abnormal lab results 05/07/25 Range/Units 08: RBC 4.19 L (4.20-5.50) X10*6/uL Hgb 11.4 L (12.0-16.0) g/dl Hct 34.8 L (37.0-47.0) % H & H 05/07/25 Range/Units 08:23 Hgb 11.4 L (12.0-16.0) g/dl Hct 34.8 L (37.0-47.0) % All other labs normal. Diagnostic results Hip x-ray: report reviewed and image reviewed Knee x-ray: report reviewed and image reviewed Assessment and Plan (1) Hamstring injury: Qualifiers: Encounter type: initial encounter Laterality: right Qualified Code(s): S76.301A - Unspecified injury of muscle, fascia and tendon of the posterior muscle group at thigh level, right thigh, initial encounter Status: Acute Plan 1. Hamstring sprain/strain of right leg Patient is educated about this condition Patient is educated about the typical recovery course Would recommend weaning off of IV pain medication Trial moving about the room to the chair in the bathroom Recommend PT if possible while in the hospital, should receive outpatient PT upon discharge Should follow-up in our office upon discharge No further acute orthopedic intervention is indicated at this time Procedures Date of Service Date of Service: 05/07/25
[2025-05-07 12:00] VITALS: BP 140/74; PULSE 82; RESP 18; TEMP 36.5; O2SAT 95
--- NOTE | 2025-05-07 13:41 | P.DS_ITS ---
DS: Providers Provider Date of Service: 05/07/25 Date of admission: 05/06/25 17:16 Date of discharge: 05/07/25 Primary care physician: Jeramy Bernal MD Consults: 05/07/25 06:54 Consult to Orthopedics Routine Consulting Provider: [facility] Orthopedic Surgeons Reason for consultation: Hamstring injuiry Has provider been notified: No DS: Diagnosis Discharge Diagnosis (1) Hamstring injury: Status: Acute DS: Summary Hospital Course Hospital Course: admission hpi Chief Complaint: Right Leg Pain 29 year old female with pmhx significant for anemia, hypothyroidism, and asthma, recent lipoma surgery with wound infection. She presents to the ED today for evaluation of right hip/thigh pain after trying to step over a dog and her right leg got cought resulting in fall with her legs split and landed on right leg and started having pain in the back of the right tigh and going to the buttock area. She described that pain as excruciating and now tih difficulty ambulating. Femur xray, hip xray no fracture, she has some bruise on leg. She has received toradol, morphine, valium and dilaudid to achieve some pain control but still not able to walk Hospital course: Patient was observation for pain management with IV pain meds, she improved the next days and was able walk, she was seen by ortho and educated on the nature of her injury and recovery time. Outpatient physical therapy will be requested and she will follow up with Ortho, she's weight bearing as cornell Time Attestation Discharge Coordination Time (in mins): 35 Quality: Safe Use of Opioids Does Pt have an Active Cancer Diagnosis on the Problem List?: No Quality: Stroke Does the patient have a stroke diagnosis?: No Physical Exam Vital Signs: Vital Signs: Last Vital Signs Temp 97.7 F 05/07/25 12:00 Pulse 82 05/07/25 12:00 Resp 18 05/07/25 12:00 BP 140/74 H 05/07/25 12:00 Pulse Ox 95 05/07/25 12:00 O2 Del Method Room Air 05/07/25 12:00 BMI result Body Mass Index 30.9 DS: Data Data Completed and Pending Labs on day of discharge: Laboratory Results - last 24 hr 05/07/25 05/07/25 07:54 08:23 WBC 8.9 RBC 4.19 L Hgb 11.4 L Hct 34.8 L MCV 83.1 MCH 27.2 MCHC 32.8 RDW 13.9 Plt Count 395 MPV 9.5 Absolute Nucleated RBC 0.000 Nucleated RBC % (auto) 0.0 Hold Purple Top SEE NOTE Creatinine 0.70 Estim Creat Clear Calc 120.4 Estimated GFR > 60 Discharge Plan Discharge Anticipated Discharge Date/Time: 05/07/25 13:33 Patient Disposition: Home, Self-Care Discharge Diagnosis: Hamstring Injury Referrals: Alf Ross PA [Physician Carbonation Equipment Tender, Hand Surgery] - 1 Week Marii Gallego MD [Physician, Physiatry] - 1 Week Discharge Medications: New naproxen 500 mg tablet 500 mg PO Q12H PRN (Reason: pain (scale score 1-3)) Qty: 20 0RF lidocaine [Lidoderm] 5 % adhesive patch,medicated 1 patch topical DAILY Qty: 15 0RF Rx Instructions: leave on most painful area for up to 12 hrs Continued albuterol sulfate 2.5 mg /3 mL (0.083 %) solution for nebulization 2.5 mg inhalation Q4-6H PRN (Reason: bronchospasm) Qty: 75 0RF levothyroxine 175 mcg tablet 175 mcg PO MOTUWETHFRSA levothyroxine 175 mcg tablet 262.5 mcg PO COLLINS acetaminophen 500 mg Tablet 1,000 mg PO Q6H PRN (Reason: Pain) albuterol sulfate 90 mcg/actuation HFA aerosol inhaler 2 puff INHALATION Q4H PRN (Reason: Shortness Of Breath Or Wheezing) fluticasone propion-salmeterol 230-21 mcg/actuation HFA aerosol inhaler 2 puff INHALATION BID PRN (Reason: Shortness Of Breath Or Wheezing) doxycycline hyclate 50 mg capsule 50 mg PO DAILY Discharge Orders: Discharge Order (Routine); Ordered 05/07/25 Ordered By: Robbie Villanueva Diet: Advance to usual diet Activity on Discharge: As tolerated Stand Alone Forms: Patient Portal Discharge page, Work/School Release Print Language: Slovak Care Plan Goals: recovery from hamstring muscle injury Health Concerns: hamstring injury, pain and difficulty walking Plan of Treatment: Outpatient physical therapy take Naproxen and lidocaine path as prescribed, Follow up with Orthopedics surgery Assessment: see above
--- NOTE | 2025-05-07 13:54 | MHC.CM.PN ---
PT REPORTS SHE LIVES ALONE AND IS INDEPENDENT WITH CARE SHE USED NO DME SHORE HAND DREDGE OR BARGE, BUT WILL BE USING CRUTCHES AT DC SHE DECLINES A HCP PCP: LUIS ANGEL GUAMAN OBSERVATION NOTICE DELIVERED DCP: HOME WITH OUTPATIENT PT MOTHER TO TRANSPORT
== END 2025-05-07 14:46 | disposition home or self-care (01) ==
LOC: HO.ED 17:43 → HO.EDOVER 17:59 → HO.S3 19:13
PROVIDERS: Admitting Provider Internal Medicine; Emergency Provider Emergency Medicine Emergency Medical Services; PCP Internal Medicine; Visit Provider Internal Medicine
DX: S76.301A Unspecified injury of muscle, fascia and tendon of the posterior muscle group at thigh level, right thigh, initial encounter (principal); W01.0XXA Fall on same level from slipping, tripping and stumbling without subsequent striking against object, initial encounter; Y93.89 Activity, other specified; Y92.9 Unspecified place or not applicable; Y99.9 Unspecified external cause status; M79.651 Pain in right thigh; E03.9 Hypothyroidism, unspecified; D64.9 Anemia, unspecified; J45.909 Unspecified asthma, uncomplicated; M25.551 Pain in right hip; I10 Essential (primary) hypertension; Z79.899 Other long term (current) drug therapy
CPT/HCPCS: 36415; 73502; 73552; 82565; 85027; 96372; 96374; 96375; 96376; 99221; 99285; J1171; J1650; J1885; J2270; J2405; J3360

== ENCOUNTER → 2025-05-06 12:45 | Outpatient (BNV) | payer OTHER, SELFPAY | PROVIDERS: Emergency Provider Emergency Medicine Emergency Medical Services; PCP Internal Medicine; Visit Provider Radiology Diagnostic Radiology | DX: M25.551 Pain in right hip (principal); M79.651 Pain in right thigh | CPT/HCPCS: 73502; 73552 ==

== ENCOUNTER → 2025-05-06 17:16 | Outpatient (BNV) | payer OTHER, SELFPAY | PROVIDERS: Admitting Provider Internal Medicine; Emergency Provider Emergency Medicine Emergency Medical Services; PCP Internal Medicine | DX: S76.301A Unspecified injury of muscle, fascia and tendon of the posterior muscle group at thigh level, right thigh, initial encounter (principal) | CPT/HCPCS: 99222 ==

== ENCOUNTER → 2025-05-06 17:16 | Outpatient (BNV) | payer OTHER, SELFPAY | PROVIDERS: Admitting Provider Internal Medicine; Emergency Provider Emergency Medicine Emergency Medical Services; PCP Internal Medicine; Visit Provider Internal Medicine | DX: S76.301A Unspecified injury of muscle, fascia and tendon of the posterior muscle group at thigh level, right thigh, initial encounter (principal); E03.9 Hypothyroidism, unspecified | CPT/HCPCS: 99222; 99499 ==

== ENCOUNTER 2025-08-12 00:19 | Emergency (ER) | payer OTHER, SELFPAY ==
--- NOTE | ~2025-08-12 | CT_ITS ---
CLINICAL HISTORY: Sore throat; ? 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 Heterogeneous enlarged bilateral palatine tonsils, somewhat obscured by dental streak artifact. Uvula edema. No overt evidence of peritonsillar abscess. No retropharyngeal abscess. Moderate oropharyngeal airway narrowing. bilateral adenoid enlargement. Effacement of the nasopharyngeal airway. Parapharyngeal fat is maintained. No epiglottic thickening. Salivary glands are unremarkable. No sialoliths. Thyroid gland is unremarkable. Bilateral cervical lymphadenopathy measuring up to 1.5 cm in a right cervical level 2A lymph node. Anterior right upper lobe patchy airspace opacities, concerning for infection. No acute fracture or dislocation. IMPRESSION: Diffuse tonsillar enlargement and heterogeneity, can be seen with acute tonsillitis. Nasopharyngeal airway effacement and moderate oropharyngeal airway narrowing. No overt peritonsillar or retropharyngeal abscess, within the limitation of dental streak artifact Anterior right upper lobe patchy airspace opacities, concerning for infection. Likely reactive bilateral cervical lymphadenopathy. Recommend clinical follow-up to ensure resolution. This document has been electronically signed by: Chip Koch MD on 08/12/2025 03:03:38
[2025-08-12 00:24] VITALS: BP 138/86; PULSE 95; RESP 20; TEMP 36.7; O2SAT 97; BMI 32.5
--- NOTE | 2025-08-12 00:36 | ED_ITS ---
HPI - General Adult General Chief complaint: General Medical Stated complaint: abscess covering throat Time Seen by Provider: 08/12/25 00:21 Source: patient Mode of arrival: ambulatory Limitations: no limitations History of Present Illness ED Provider: Easton NICHOLAS HPI narrative: The patient is a 30-year-old female presenting to the ED for evaluation of sore throat. The patient reports in May she developed strep throat, which delayed surgical repair of a torn right hamstring. Patient eventually underwent surgery, however since that time has had recurrent strep throat in June and again last month. The patient reports 3 days ago she began experiencing recurrent sore throat with dysphagia without associated stridor, pooling secretions, or trismus. The patient was seen again at urgent care 2 days ago and initiated on an additional course of amoxicillin, per patient report urgent Care contacted her surgeon's office who only approved use of amoxicillin. The patient reports she was previously on naproxen for her postoperative care plan, but has not taken this in the past 2 days. Patient reports she has been taking Tylenol, most recently was at 18:00. The patient denies any current steroid use. The patient reports she developed a low-grade fever with single episode of nonbloody vomitus 2 days ago at the onset of symptoms, however since that time patient denies associated fever/chills, nausea, vomiting, or other systemic complaint. The patient was instructed to follow up with ENT, but reports after calling ENT office today she is unable to be seen for quite some time, and PCP referred her to the ED for drainage of a suspected GRAIN LOADER. Related Data Home Medications ?Medication ?Instructions ?Recorded ?Confirmed doxycycline hyclate 50 mg capsule 50 mg PO DAILY 02/2305/06/25 acetaminophen 500 mg tablet 1,000 mg PO Q6H PRN Pain 0 05/06/25 05/06/25 albuterol sulfate 90 mcg/actuation 2 puff inhalation Q 4H PRN 05/06/25 05/06/25 aerosol inhaler Shortness Of Breath Or Wheez ing fluticasone propionate 230 2 puff inhalation BID PRN 0 05/06/25 05/06/25 mcg-salmeterol 21 mcg/actuation Shortness Of Breath Or Wheezing HFA inhaler levothyroxine 175 mcg tablet 175 mcg PO MOTUWETHFRSA 0 05/06/25 05/06/25 levothyroxine 175 mcg tablet 262.5 mcg PO COLLINS 05/06/25 05/06/25 Previous Rx's ?Medication ?Instructions ?Recorded albuterol sulfate 2.5 mg/3 mL 2.5 mg (3 mL) inhalation Q4-6H PRN 10/03/21 (0.083 %) solution for nebulization bronchospasm #75 m L lidocaine 5 % topical patch 1 patch topical DAILY #15 ea 05/06/25 (Lidoderm) naproxen 500 mg tablet 500 mg PO Q12H PRN pain (sca le 05/06/25 score 1-3) #20 tabs amoxicillin 875 mg-potassium 1 tab PO BID #14 tabs 05/29 clavulanate 125 mg tablet azithromycin 250 mg tablet See Rx Instructions PO .COM PLEX #6 08/12/25 (Zithromax Z-Doyle) tabs Allergies Allergy/AdvReac Type Severity Reaction Status Date / Time No Known Allergies Allergy Verified 08/12/25 00:31 Review of Systems 2 Review of Systems: Yes all other systems are reviewed and are negative PMFSH Past Medical History Medical History Anemia Hypothyroid Asthma Surgical History No pertinent past surgical history Family History Family History Mother Breast cancer Hypertension Maternal Grandmother Hypertension High cholesterol Social History Social History Household Members: None Housing: House Alcohol intake: current Alcohol intake frequency: a few times a month Alcohol type: hard liquor Patient Tobacco Use Status: Never used Tobacco e-Cigarette/Vaping Use: Never Used Substance Use Type: Marijuana Advance Directives: No Advance Directives Information Provided: No service: No Physical Exam ED Vital Signs: Vital Signs - 24 hr 08/12/25 00:24 Temperature 98.1 F Pulse Rate 95 Respiratory Rate 20 Blood Pressure 138/86 Pulse Oximetry 97 Oxygen Delivery Method Room Air BMI result Body Mass Index 32.5 CONSTITUTIONAL: The patient appears uncomfortable but otherwise non-toxic, well nourished and in no acute distress. Vital signs as documented. HEAD: Atraumatic, normocephalic. EYES: EOMs grossly intact, pupils equal, conjunctiva clear, no exudate. ENT: Nares patent, no discharge. Airway patent, no audible stridor, visible mucosa is pink and moist without noted lesions. The bilateral tonsils demonstrate significant exudate, with associated tonsillitis, greater on the right, uvula is midline and nonedematous, no evidence of peritonsillar swelling. NECK: Trachea is midline, no obvious masses or gross abnormalities. CHEST: Symmetric movement, normal appearance. LUNGS: LS present and CTAB, no w/r/r. Non-labored work of breathing. CARDIAC: Regular Rhythm, S1/S2 appreciated, no murmurs, rubs or gallops. ABDOMEN: Abdomen soft and non-tender x4 quadrants, no palpable masses or organomegaly. : Deferred. EXTREMITIES: Normal tone, moves all extremities spontaneously without reported pain. No obvious acute injury or deformity noted. NEURO: Alert and oriented x3, CN II-XII appear grossly intact. Cerebellar Functioning grossly intact. No obvious sensory or motor deficits. Speech clear and appropriate. PSYCH: normal affect, appropriate eye contact, fluid speech, with appropriate response to questioning. No reported suicidality or homicidality. SKIN: Warm, dry, color appropriate, normal turgor. No rashes noted. Medications Administered Discontinued Medications Generic Name Dose Route Start Last Admin Trade Name Freq PRN Reason Stop Dose Admin Dexamethasone Sodium Phosphate 10 mg 08/12/25 00:33 08/12/25 00:44 Dexamethasone Sod Phosphate 10 Mg/Ml Vial IVPUSH 08/12/25 00:34 10 mg ONCE ONE Administration Acetaminophen 1,000 mg in 100 mls @ 400 mls/hr 08/12/25 00:33 08/12/25 01:10 Ofirmev IV 08/12/25 00:47 Infused ONCE ONE Infusion Iohexol 100 ml 08/12/25 02:13 08/12/25 02:13 Iohexol 350 Mg/Ml 100 Ml Infus..Btl IV 08/12/25 02:14 75 ml ONCE ONE Administration Ketorolac Tromethamine 15 mg 08/12/25 00:33 08/12/25 00:43 Ketorolac Tromethamine 15 Mg/Ml Vial IVPUSH 08/12/25 00:34 15 mg ONCE ONE Administration Medical Decision Making Medical Decision Making [facility] Narrative: 12:38 AM 08/12/2025 (Arjun NICHOLAS): The patient is a 30-year-old female presenting to the ED for evaluation of sore throat. The patient reports in May she developed strep throat, which delayed surgical repair of a torn right hamstring. Patient eventually underwent surgery, however since that time has had recurrent strep throat in June and again last month. The patient reports 3 days ago she began experiencing recurrent sore throat with dysphagia without associated stridor, pooling secretions, or trismus. The patient was seen again at urgent care 2 days ago and initiated on an additional course of amoxicillin, per patient report urgent Care contacted her surgeon's office who only approved use of amoxicillin. The patient reports she was previously on naproxen for her postoperative care plan, but has not taken this in the past 2 days. Patient reports she has been taking Tylenol, most recently was at 18:00. The patient denies any current steroid use. The patient reports she developed a low-grade fever with single episode of nonbloody vomitus 2 days ago at the onset of symptoms, however since that time patient denies associated fever/chills, nausea, vomiting, or other systemic complaint. The patient was instructed to follow up with ENT, but reports after calling ENT office today she is unable to be seen for quite some time, and PCP referred her to the ED for drainage of a suspected GRAIN LOADER. On exam the patient has tonsillar exudate bilaterally, with tonsillitis, srcyl-[id number]-[id number]-left but without obvious peritonsillar swelling, uvula is midline and nonedematous, there was no pooling secretions, stridor, or other acute findings. The patient is afebrile, without tachycardia. The patient's presentation is more consistent with strep throat with a asymmetric tonsillitis, due to the lack of an obvious peritonsillar abscess on exam, we will obtain CT imaging to clarify presence or absence of abscess prior to attempting drainage. Additionally the patient will be evaluated with basic laboratory workup, and treated with IV Tylenol, Toradol, and Decadron. We will await CT imaging results, if no evidence of GRAIN LOADER, the patient will be treated with Augmentin in place of amoxicillin. 3:20 AM 08/12/2025 (Arjun NICHOLAS): The patient's CT shows no evidence of peritonsillar or retropharyngeal abscess, there are findings consistent with tonsillitis, additionally there is incidental note of right anterior upper lobe patchy airspace opacities concerning for infection. Given these CT findings we will forego any attempted drainage. We will initiate the patient on Augmentin and add azithromycin to cover for pneumonia. Patient will be discharged to follow up with PCP. Admission/Observation Consideration of admission/observation: Escalation of care including admission/observation considered Lab Data MDM Lab Attestation statement: I reviewed the patient's lab results. 08/12/25 00:39 08/12/25 00:39 Labs: Lab Results 08/12/25 Range/Units 00:39 WBC 11.2 H (4.8-10.8) X10*3/uL RBC 4.87 (4.20-5.50) X10*6/uL Hgb 12.6 (12.0-16.0) g/dl Hct 38.9 (37.0-47.0) % MCV 79.9 L (80.0-98.0) fL MCH 25.9 L (27.0-33.0) pg MCHC 32.4 (31.0-35.0) g/dl RDW 15.5 (11.0-16.0) % Plt Count 346 (160-400) X10*3/uL MPV 9.5 (9.4-12.3) fL Immature Gran % (Auto) 0.4 (0.0-0.4) % Neut % (Auto) 69.9 (45-73) % Lymph % (Auto) 18.1 L (20-40) % Davison % (Auto) 10.0 (2-11) % Eos % (Auto) 1.2 (0-4) % Baso % (Auto) 0.4 (0-2) % Lymph # (Auto) 2.0 (1.2-4.9) X10*3/uL Davison # (Auto) 1.1 (0.1-1.2) X10*3/uL Eos # (Auto) 0.1 (0.0-0.4) X10*3/uL Baso # (Auto) 0.1 (0.0-0.2) X10*3/uL Abs Immat Gran (auto) 0.04 H (0.00-0.03) X10*3/uL Absolute Neuts (auto) 7.8 (2.0-8.3) x10*3/uL Absolute Nucleated RBC 0.000 (0.0-0.012) X10*3/uL Nucleated RBC % (auto) 0.0 (0.0-0.2) /100WBC Sodium 136 (135-145) mmol/L Potassium 4.0 (3.3-5.1) mmol/L Chloride 105 (96-108) mmol/L Carbon Dioxide 20 L (22-29) mmol/L Anion Gap 15 (12-20) BUN 18 H (9-16) mg/dL Creatinine 0.82 (0.5-1.4) mg/dL Estim Creat Clear Calc 104.4 Estimated GFR > 60 Random Glucose 111 (60-115) mg/dL Calcium 9.8 (8.4-10.2) mg/dL Total Bilirubin 0.4 (0.0-1.0) mg/dL AST 20 (5-31) U/L ALT 16 (0-31) U/L Alkaline Phosphatase 78 (39-117) U/L Total Protein 7.7 (6.5-8.0) g/dL Albumin 4.6 (3.5-5.0) g/dL Beta HCG, Quant < 2 mIU/mL Radiology Impression Discussion of test interpretation with radiology: I have reviewed the radiologist's reading. Radiologist Impression: CT soft tissue neck with contrast Comparison: CT/MT/SR - CT HEAD/BRAIN WO IV CON - 01/08/25 14:53 EDT Findings: The visualized intracranial contents are unremarkable. Heterogeneous enlarged bilateral palatine tonsils, somewhat obscured by dental streak artifact. Uvula edema. No overt evidence of peritonsillar abscess. No retropharyngeal abscess. Moderate oropharyngeal airway narrowing. bilateral adenoid enlargement. Effacement of the nasopharyngeal airway. Parapharyngeal fat is maintained. No epiglottic thickening. Salivary glands are unremarkable. No sialoliths. Thyroid gland is unremarkable. Bilateral cervical lymphadenopathy measuring up to 1.5 cm in a right cervical level 2A lymph node. Anterior right upper lobe patchy airspace opacities, concerning for infection. No acute fracture or dislocation. IMPRESSION: Diffuse tonsillar enlargement and heterogeneity, can be seen with acute tonsillitis. Nasopharyngeal airway effacement and moderate oropharyngeal airway narrowing. No overt peritonsillar or retropharyngeal abscess, within the limitation of dental streak artifact Anterior right upper lobe patchy airspace opacities, concerning for infection. Likely reactive bilateral cervical lymphadenopathy. Recommend clinical follow-up to ensure resolution. This document has been electronically signed by: Chip Koch MD on 08/12/2025 03:03:38 External Record Review External record reviewed: Outpatient record and Prior outpatient labs Prescription Management I considered prescription management with: Pain Medication and Antibiotic Discharge Plan Discharge Clinical Impression: Strep pharyngitis Pneumonia Qualifiers: Pneumonia type: due to unspecified organism Laterality: right Lung location: u pper lobe of lung Qualified Code(s): J18.9 - Pneumonia, unspecified organism Patient Disposition: Home, Self-Care Instructions: Pharyngitis (ED), Strep Throat (ED), Community Acquired Pneumonia (ED) Additional Instructions: Thank you for choosing [facility]'s Emergency Department for your care today. At this time there is no indication for admission to the hospital or continued ED observation, and it is safe to discharge you home. Thankfully your CT today showed no evidence of a peritonsillar or retropharyngeal abscess, as such there was no need for an attempted drainage. Your CT showed evidence of enlargement of your tonsils consistent with your known diagnosis of strep pharyngitis. Unexpectedly, your CT also shows evidence of pneumonia in the upper lobe of your right lung. Given these findings we are treating you with a stronger antibiotic called Augmentin, which will treat both your strep throat and pneumonia, as well as adding azithromycin for dual therapy of your pneumonia. You should take alternating (staggered) doses of ibuprofen 600mg and Tylenol 1000mg every 4 hours as needed for any additional pain or swelling. Please stay well hydrated and get plenty of rest. Please follow up with your surgeon and primary care physician for re-evaluation, additional management of your symptoms, and continued preventative care. If you do not have a primary care physician, please call the [facility] at [phone] to establish a new primary care physician. While waiting to establish your new primary care physician, you can call our [facility] at [phone] for non-emergency needs. Please return to the emergency department if you develop a severe or sudden change in your symptoms, a fever over 100.4 that does not improve with Tylenol or Ibuprofen, recurrent vomiting, or any other new or worsening symptoms or concerns. Prescriptions: New azithromycin [Zithromax Z-Doyle] 250 mg tablet See Rx Instructions .ROUTE .COMPLEX Qty: 6 0RF Rx Instructions: For 250 mg dose pack: take 500 mg today (day 1), then 250 mg for 4 days (days 2-5) amoxicillin-pot clavulanate 875-125 mg tablet 1 tab PO BID Qty: 14 0RF No Action albuterol sulfate 2.5 mg /3 mL (0.083 %) solution for nebulization 2.5 mg inhalation Q4-6H PRN (Reason: bronchospasm) Qty: 75 0RF naproxen 500 mg tablet 500 mg PO Q12H PRN (Reason: pain (scale score 1-3)) Qty: 20 0RF lidocaine [Lidoderm] 5 % adhesive patch,medicated 1 patch topical DAILY Qty: 15 0RF Rx Instructions: leave on most painful area for up to 12 hrs levothyroxine 175 mcg tablet 175 mcg PO MOTUWETHFRSA levothyroxine 175 mcg tablet 262.5 mcg PO COLLINS acetaminophen 500 mg Tablet 1,000 mg PO Q6H PRN (Reason: Pain) albuterol sulfate 90 mcg/actuation HFA aerosol inhaler 2 puff INHALATION Q4H PRN (Reason: Shortness Of Breath Or Wheezing) fluticasone propion-salmeterol 230-21 mcg/actuation HFA aerosol inhaler 2 puff INHALATION BID PRN (Reason: Shortness Of Breath Or Wheezing) doxycycline hyclate 50 mg capsule 50 mg PO DAILY Referrals: SAV LUNSFORD [Other] Clinical Impression: Strep pharyngitis; Pneumonia Print Language: Qatari
[2025-08-12 00:43] LABS: Hematocrit 38.9 % (37.0-47.0); Hemoglobin 12.6 g/dl (12.0-16.0); Imm Gran Abs Auto 0.04 X10*3/uL (0.00-0.03); Imm Gran Pct Auto 0.4 % (0.0-0.4); Lymphocytes Absolute Auto 2.0 X10*3/uL (1.2-4.9); MANUAL DIFF FLAG NO; Mean Corpuscular HGB Conc 32.4 g/dl (31.0-35.0); Mean Corpuscular Hemoglobin 25.9 pg (27.0-33.0); Mean Corpuscular Volume 79.9 fL (80.0-98.0); NRBC Abs Auto 0.000 X10*3/uL (0.0-0.012); NRBC Pct Auto 0.0 /100WBC (0.0-0.2); Platelet Count 346 X10*3/uL (160-400); Red Blood Count 4.87 X10*6/uL (4.20-5.50); White Blood Count 11.2 X10*3/uL (4.8-10.8)
[2025-08-12 01:00] LABS: Alanine Aminotransferase 16 U/L (0-31); Albumin Level 4.6 g/dL (3.5-5.0); Alkaline Phosphatase 78 U/L (39-117); Anion Gap 15 (12-20); Aspartate Amino Transferase 20 U/L (5-31); Blood Urea Nitrogen 18 mg/dL (9-16); Calcium 9.8 mg/dL (8.4-10.2); Carbon Dioxide 20 mmol/L (22-29); Chloride 105 mmol/L (96-108); Creatinine Clr Calc Pharmacy 104.4; Estimated Glomerular Filt Rate > 60; Potassium 4.0 mmol/L (3.3-5.1); Sodium 136 mmol/L (135-145); Total Protein 7.7 g/dL (6.5-8.0)
--- OUTSIDE RECORDS SUMMARY | 2025-08-12 01:28 | XMS_ITS | Encounter Summary ---
Author Organization [facility] Address [address] [place] [id number] Phone Care Team Providers Care Supervisor Pyrotechnic Loading Name Role Phone Arleth Noel NP Primary Care Provider Encounter Details Date Type Department Care Team (Late st Contact Info) Description 10/07/2011 Documentation [facility] [place] Family Medicine [address] [place], [place] [id number] Family Medicine, Physician [address] [place], [place] [id number] Social History Tobacco Use Types Packs/Day Years [...] filedocumented in this encounter Care Teams Supervisor Pyrotechnic Loading Relationship Specialty Start Date End Date Arleth Noel NP PCP - General 05/15/17 documented as of this encounter
--- OUTSIDE RECORDS SUMMARY | 2025-08-12 01:28 | XMS_ITS | Encounter Summary ---
Author Organization [facility] Address [address] [place] [id number] Phone Care Team Providers Care Station Worker Name Role Phone Arleth Noel NP Primary Care Provider [phone] Encounter Details Date Type Department Care Team (Late st Contact Info) Description 09/20/[address] [facility] [place] Family Medicine [address] [place], [place] [phone] Family Medicine, Physician [address] [place], [place] [address] Social History Tobacco Use Types Packs/Day Years [...] on filedocumented in this encounter Care Teams Station Worker Relationship Specialty Start Date End Date Arleth Noel NP PCP - General 05/15/17 documented as of this encounter
--- OUTSIDE RECORDS SUMMARY | 2025-08-12 01:28 | XMS_ITS | Clinical Summary ---
Author Organization [facility] Address [address] [place] [address] Phone Care Team Providers Care Cellar Hand Name Role Phone Jeramy Bernal MD Primary [...] needed for wheezing. 540 mL 1 5 Active albuterol HFA (Ventolin HFA) 90 mcg/actuation inhaler Inhale 2 puffs by mouth every 4 (four) hours if needed for wheezing or shortness of breath. 8 g 3 5 02/16/20 26 Active levothyroxine sodium (Tirosint) 125 mcg capsule Take 1 capsule (125 mcg total) by mouth 1 (one) time each day. 30 each 2 5 Active acetaminophen (TYLENOL) 500 mg tablet Take 2 tablets (1,000 mg total) by mouth every 8 (eight) hours if needed (pain). 90 tablet 5 Active cyclobenzaprine (FLEXERIL) 10 mg tablet Take 1 tablet (10 mg total) by mouth 3 (three) times a day if needed for muscle spasms. 60 tablet 5 Active ibuprofen (ADVIL,MOTRIN) 800 mg tablet Take 1 tablet (800 mg total) by mouth 3 (three) times a day if needed (pain). 60 tablet 5 Active etonogestreL-et hinyl estradioL (NUVARING) 0.12-0.015 mg/24 hr vaginal ring Insert 1 each into the vagina every 28 (twenty-eight) days. Active Active Problems Problem Noted Date Diagnosed [...] Encounters Date Type Department Care Team Description 08/11/2025 Telephone Adult Medicine [address] [phone] Jeramy Bernal MD 06/22/2025 Telephone Orthopedics [address] [phone] Gio Almodovar PA 06/21/2025 Telephone Orthopedics [address] [phone] Gio Almodovar PA 06/19/2025 Telephone Orthopedics [address] [phone] Gio Almodovar PA 06/08/2025 Telephone Adult Medicine East - [address] [phone] Jeramy Bernal MD 05/24/2025 Telephone Orthopedics [address] [phone] Gio Almodovar PA 05/22/2025 2:44 PM EDT - 05/22/2025 11:59 PM EDT Hospital Encounter [facility] MRI [address] [place] [address] Right hamstring injury, subsequent encounter; Tear of right hamstring Discharge Disposition: Home or Self Care 05/16/2025 12:30 PM EDT Consult Orthopedics [address] [phone] Gio Almodovar PA Tear of right hamstring (Primary Dx); Right hamstring injury, subsequent encounter from Last 3 Months Surgical History Surgery [...] for your loved ones. For example, child and family services worker or elderly care for an older adult? [...] Date Recorded What is your living situation? Unrecognized valu e 11/15/2024 Comments No Sex and Gender Information Value Date Recorded Sex Assigned at Female 11/07/2022 10:42 AM EST Legal Sex Female 4:33 AM EST Gender Identity Female 11/07/2022 10:42 AM EST Sexual Orientation Straight 11/07/2022 10 :42 AM EST Obstetrics History Last Filed Vital Signs Vital Sign Reading Time Taken Comments Blood Pressure 123/84 05/09/2025 9:14 AM EDT Pulse 88 05/09/2025 9:14 AM EDT Temperature 36.6 C (97.9 F) 05/09/2025 9:14 AM EDT Respiratory Rate 16 05/16/2025 12:37 PM EDT Oxygen Saturation 99% 08/16/2024 1:16 PM EST Inhaled Oxygen Concentration - - Weight 80.7 kg (178 lb) 05/16/2025 12:37 PM EDT Height 162.6 cm (5' 4 ) 05/16/2025 12:37 PM EDT Body Mass Index 30.55 05/16/2025 12:37 PM EDT Plan of Treatment Upcoming Encounters Date Type Department Care Team (Late st Contact Info) Description 10/24/2025 9:30 AM EST Office Visit [facility] Hematology Oncology [address] [place] [phone] Yulia Gusman PA [address] [place] [address] Health Maintenance Due Date Last Done Comments Cervical Cancer Screening: Pap Smear 2014 Pneumococcal Vaccine: Pediatrics (0 to 5 Years) and At-Risk Patients (6 to 49 Years) (2 of 2 - PCV) 06/22/2015 06/22/2014 HIV Screening 09/13/2022 Hepatitis C Screening 09/13/2022 COVID-19 Vaccine ( season) 2025 Influenza Vaccine (#1) 2025 2, 09/19/2011, 07/26/2010, Additional history exists Social Influencers of Health Screening 11/15/2025 11/15/2024 DTaP,Tdap,and Td Vaccines (9 - Td or Tdap) 02/19/2026 02/20/2016, 07/26/2010, 12/02/2005, Additional history exists Cholesterol Screening (Lipid Panel) 11/21/2029 11/21/2024 RSV Immunization Adult Patients (1 - 1-dose 75+ series) 2068 Hepatitis [...] Procedure Name Priority Date/Time Associated Diagnosis Comments MR FEMUR WO CONTRAST RIGHT Routine 05/22/2025 3:33 PM EDT Right hamstring injury, subsequent encounter Tear of right hamstring LIPID PANEL WITH REFLEX TO DIRECT LDL Routine 11/21/2024 12:32 PM EST Screening for lipid disorders from Last 3 Months or Most Recently Relevant to Health Maintenance Results * MR Femur wo Contrast Right (05/22/2025 3:33 PM EDT) Anatomical Region Laterality Modality Lower Extremities, Femur Right Magneti c Resonance 05/23/2025 1:56 PM EDT Impressions 05/23/2025 2:09 PM EDT 1. Complete avulsion of the biceps femoris and semitendinosus from there ischial origin. 2. Strain of the obturator externus. 3. Small intrasubstance tear of the gracilis at the proximal musculotendinous junction. -------- FINAL REPORT -------- Dictated By: Denilson Guaman Dictated Date: 05/23/2025 13:56 ET Assigned Physician: Denilson Guaman Reviewed and Electronically Signed By: Denilson Guaman Signed Date: 05/23/2025 14:09 ET Workstation ID: [id number] Transcribed By: Self Edit Transcribed Date: 05/23/2025 13:56 ET Narrative 05/23/2025 2:09 PM EDT MRI of the right thigh, 05/22/2025. COMPARISON: None. HISTORY: Concern for hamstring injury. TECHNIQUE: Multiplanar multisequence MRI of the right thigh without intravenous contrast administration. FINDINGS: There are complete avulsions of the semitendinosis and biceps femoris, both retracted approximately 4.5 cm from their ischial origin. Elongated fluid collection in the defect measuring 1.6 x 0.9 cm transversely and approximately 10 cm craniocaudal, with signal characteristics consistent with a hematoma. Edema tracks into the adjacent fascial planes. Intramuscular edema in the obturator externus suggestive of a strain. Small partial intrasubstance tear at the proximal musculotendinous junction of the gracilis with adjacent edema. No marrow signal abnormality. Limited views of the pelvic organs are unremarkable. There is no pelvic lymphadenopathy. Procedure Note Denilson Guaman MD - 05/23/2025 MRI of the right thigh, 05/22/2025. COMPARISON: None. HISTORY: Concern for hamstring injury. TECHNIQUE: Multiplanar multisequence MRI of the right thigh withoutintravenous contrast administration. FINDINGS: There are complete avulsions of the semitendinosis and biceps femoris,both retracted approximately 4.5 cm from their ischial origin. Elongatedfluid collection in the defect measuring 1.6 x 0.9 cm transversely andapproximately 10 cm craniocaudal, with signal characteristics consistentwith a hematoma. Edema tracks into the adjacent fascial planes. Intramuscular edema in the obturator externus suggestive of a strain. Small partial intrasubstance tear at the proximal musculotendinousjunction of the gracilis with adjacent edema. No marrow signal abnormality. Limited views of the pelvic organs are unremarkable. There is no pelviclymphadenopathy. IMPRESSION: 1. Complete avulsion of the biceps femoris and semitendinosus from thereischial origin. 2. Strain of the obturator externus. 3. Small intrasubstance tear of the gracilis at the proximalmusculotendinous junction. -------- FINAL REPORT -------- Dictated By: Denilson Guaman Dictated Date: 05/23/2025 13:56 ET Assigned Physician: Denilson Guaman Reviewed and Electronically Signed By: Denilson Guaman Signed Date: 05/23/2025 14:09 ET Workstation ID: [id number] Transcribed By: Self Edit Transcribed Date: 05/23/2025 13:56 ET Gio [facility]ICH[facility]AS [facility] [place] [place] PROCEDURES Final Result * (ABNORMAL) Lipid panel with reflex to direct LDL (11/21/2024 12:32 PM EST) Cholesterol 185 0 - 200 mg/dL LAB CHEMISTRY METHOD 11/21/2024 2:43 PM [facility] Triglycerides 74 0 - 150 mg/dL LAB CHEMISTRY METHOD 11/21/2024 2:43 PM [facility] HDL 52 >=40 mg/dL LAB CHEMISTRY METHOD 11/21/2024 2:43 PM [facility] LDL Calculated 118(H) 0 - 100 mg/dL LAB CHEMISTRY METHOD 11/21/2024 2:43 PM [facility] VLDL Cholesterol Yoel 14.8 mg/dL LAB CHEMISTRY METHOD 11/21/2024 2:43 PM [facility] Non HDL Chol. (LDL+VLDL) 133 <145 mg/dL LAB CHEMISTRY METHOD 11/21/2024 2:43 PM EST [facility] Chol/HDL Ratio 3.6 0.0 - 4.4 LAB CHEMISTRY METHOD 11/21/2024 2:[address] [facility] Blood Venous blood specimen / Unknown Venipuncture / Unknown 11/21/2024 12:32 PM EST 11/21/2024 12:32 PM EST Jeramy Bernal MD LAB BLOOD ORDERABLES F inal Result [facility] [address] [place] [address], from Last 3 Months or Most Recently Relevant to Health Maintenance Insurance [facility] PLAN Care Teams Cellar Hand Relationship Specialty Start Date End Date Jeramy Bernal MD [address], [place] PCP - General Internal Medicine 06/27/22
--- OUTSIDE RECORDS SUMMARY | 2025-08-12 01:28 | XMS_ITS | Encounter Summary ---
Author Organization [facility] Address [address] [place] [address] Phone Care Team Providers Care Steel Sampler Name Role Phone Arleth Noel NP Primary Care Provider [phone] Encounter Details Date Type Department Care Team (Late st Contact Info) Description 05/21/2017 Conversion Encounter [facility] - [address] [address] Social History Tobacco Use Types Packs/Day Years [...] on filedocumented in this encounter Care Teams Steel Sampler Relationship Specialty Start Date End Date Arleth Noel NP PCP - General 05/15/17 documented as of this encounter
--- OUTSIDE RECORDS SUMMARY | 2025-08-12 01:28 | XMS_ITS | Encounter Summary ---
Author Organization [facility] Address [address] [place] [address] Phone Care Team Providers Care Stone Polisher Name Role Phone Arleth Noel NP Primary Care Provider [phone] Encounter Details Date Type Department Care Team (Late st Contact Info) Description 05/15/2010 Documentation [facility] Family Medicine [address] [place], [place] [id number] Family Medicine, Physician [address] [place], [place] [address] Social History Tobacco Use Types Packs/Day Years [...] on filedocumented in this encounter Care Teams Stone Polisher Relationship Specialty Start Date End Date Arleth Noel NP PCP - General 05/15/17 documented as of this encounter
--- OUTSIDE RECORDS SUMMARY | 2025-08-12 01:28 | XMS_ITS | Encounter Summary ---
Author Organization [facility] Address [address] [place] [address] Phone Care Team Providers Care Upholstery Parts Sorter Name Role Phone Arleth Noel NP Primary Care Provider [phone] Encounter Details Date Type Department Care Team (Late st Contact Info) Description 02/12/2010 Documentation [facility] Family Medicine [address] [place] [address] Family Medicine, Physician [address] [place], [place] [address] Social History Tobacco Use Types Packs/Day Years [...] on filedocumented in this encounter Care Teams Upholstery Parts Sorter Relationship Specialty Start Date End Date Arleth Noel NP PCP - General 05/15/17 documented as of this encounter
--- OUTSIDE RECORDS SUMMARY | 2025-08-12 01:28 | XMS_ITS | Clinical Summary ---
Author Organization [facility] Address [address] [facility] [address] 7 [place] [address] Care Team Providers Care Egg Factory Worker Name Role Phone Unavailable Primary Care Provider [...] 11/18/2023 11/17/2022 COVID-19 Vaccine ( - season) 2025 Influenza Vaccine (#1) 2025 Dental X-Ray: Full [...] Most Recently Relevant to Health Maintenance Insurance [facility] MEDICAID STAND ADULT [address] [place] [address] 2 [place] [address] 2 [place] [address]
--- OUTSIDE RECORDS SUMMARY | 2025-08-12 01:28 | XMS_ITS | Encounter Summary ---
Author Organization [facility] Address [address] [place] [address] Phone Care Team Providers Care Food Clerk Name Role Phone Arleth Noel NP Primary Care Provider [phone] Encounter Details Date Type Department Care Team (Late st Contact Info) Description 12/17/2011 Documentation [facility] Family Medicine [address] [place], [place] [phone] Family Medicine, Physician [address] [place], [place] [address] Social History Tobacco Use Types Packs/Day Years [...] on filedocumented in this encounter Care Teams Food Clerk Relationship Specialty Start Date End Date Arleth Noel NP PCP - General 05/15/17 documented as of this encounter
--- OUTSIDE RECORDS SUMMARY | 2025-08-12 01:28 | XMS_ITS | Encounter Summary ---
Author Organization [facility] Address [address] [place] [address] Phone Care Team Providers Care Calibration Specialist Name Role Phone Arleth Noel NP Primary Care Provider [phone] Encounter Details Date Type Department Care Team (Late st Contact Info) Description 02/04/2012 Documentation [facility] Family Medicine [address] [place], [place] [phone] Family Medicine, Physician [address] [place], [place] [address] Social History Tobacco Use Types Packs/Day Years [...] on filedocumented in this encounter Care Teams Calibration Specialist Relationship Specialty Start Date End Date Arleth Noel NP PCP - General 05/15/17 documented as of this encounter
--- OUTSIDE RECORDS SUMMARY | 2025-08-12 01:28 | XMS_ITS ---
Author Name [facility] Organization Unknown Care Team Organization Name Specialty Phone Email Start Date End Da te [facility] LUIS ANGEL GUAMAN Primary Care 03/13/2023 05/23/2024 [facility] Jesus Montero Primary Care 08/12/202205/05
--- OUTSIDE RECORDS SUMMARY | 2025-08-12 01:28 | XMS_ITS | Encounter Summary ---
Author Organization [facility] Address [address] [place] [address] Care Team Providers Care Associate Professor Of Geography Name Role Phone Jeramy Bernal MD Primary Care Provider Reason for Visit * Reason Onset Date Comments strep throat 08/11/2025 Referral 08/11/2025 Encounter Details Date Type Department Care Team ([facility] st Contact Info) Description 08/11/2025 Telephone Adult Medicine [facility] [address] [place] [address], [place] [phone] Jeramy Bernal MD [address], [place] Social History Tobacco Use Types Packs/Day Years [...] for your loved ones. For example, child guidance counselor or elderly care for an older adult? [...] as of this encounter Progress Notes * Ryan Sterling RN - 08/11/2025 12:22 PM EST Called and spoke with pt. Pt is having to stop talking every few words because of abscess and having diff swallowing. Pt tearful on phone. No drooling. No appts today. Pt advised to go to er for evaluation ? Drainage of abscess * Anabel Mead - 08/11/2025 11:57 AM EST Patient call requires triage: Symptoms patient is presenting: patient has had strep throat 3 x in 3 months, since May. She also had hand string surgery 07/17. Patient has been in contact with her surgeron and has been to [facility]. Seen yesterday there, has amoxicillin. She was told she needs to get a referral to ENT for a Peritonsillar abscess angel. Please review, patient is very uncomfortable, has a hard time talking, coughing and is in pain. Can she do a televisit if needed? How long has patient had these symptoms?: on going for 3 months For ALL patients calling to schedule any appointment (routine, sick visit, follow up, consult, etc.) in the outpatient setting please ask the following questions: Do you have fever of higher than 101, sore throat with difficulty swallowing or severe shortness ofbreath? no If YES to any of these above symptoms, send a message to triage and do not book. Red dot. If no, an audio or video visit should be booked. Have you had close contact with someone with Coronavirus in the last 14 days? no Have you traveled abroad? no Have you traveled recently to another state outside of [place], [place], [place], [place], [place], [place], [place]? no o If yes, did you quarantine for 14 days or have a negative covid test? no If yes to any of the above, patient is not to be scheduled in office until after 14 day quarantine or negative covid test. If pain or injury related was it due to an accident at work or from a motor vehicle accident? If yes, date of accident/Injury: No If yes, gather 3rd democrat insurance information Third Republican Information: not applicable PCP: Jeramy Bernal MD Payor: [facility] / Plan: [facility] / Product Type: *No Product type* / documented in this encounter Plan of Treatment Upcoming Encounters Date Type Department Care Team (Late st Contact Info) Description 10/24/2025 9:30 AM EST Office Visit [facility] Hematology Oncology [address] [place] [address] Yulia Gusman PA [address] [place] [address] documented as of this encounter Visit Diagnoses Not on filedocumented in this encounter Additional Health Concerns Assessment Noted Time PHQ-9 Depression Total Score: 9 11/15/19 25 1:07 PM EST documented as of this encounter Care Teams Associate Professor Of Geography Relationship Specialty Start Date End Date Jeramy Bernal MD [address] [place] [address] PCP - General Internal Medicine 06/27/22 documented as of this encounter
--- OUTSIDE RECORDS SUMMARY | 2025-08-12 01:28 | XMS_ITS | Clinical Summary ---
Author Organization [facility] Address [address] [place] [address] Care Team Providers Care Muck Miner Blasting Name Role Phone Jeramy Bernal Primary Care [...] age to complete this topic Care Teams Muck Miner Blasting Relationship Specialty Start Date End Date Jeramy Bernal MBBS [address] [place] [address] PCP - General Internal Medicine 03/25/23
--- OUTSIDE RECORDS SUMMARY | 2025-08-12 01:28 | XMS_ITS | Encounter Summary ---
Author Organization [facility] Address [address] [place] [address] Phone Care Team Providers Care Dispatcher Refinery Name Role Phone Arleth Noel NP Primary Care Provider [phone] Encounter Details Date Type Department Care Team (Late st Contact Info) Description 11/03/2011 Documentation [facility] Family Medicine [address] [place], [place] [phone] Family Medicine, Physician [address] [place], [place] [address] Social History Tobacco Use Types Packs/Day Years [...] on filedocumented in this encounter Care Teams Dispatcher Refinery Relationship Specialty Start Date End Date Arleth Noel NP PCP - General 05/15/17 documented as of this encounter
--- OUTSIDE RECORDS SUMMARY | 2025-08-12 01:28 | XMS_ITS | Encounter Summary ---
Author Organization [facility] Address [address] [place] [address] Phone Care Team Providers Care Leather Products Supervisor Name Role Phone Arleth Noel NP Primary Care Provider [phone] Encounter Details Date Type Department Care Team (Late st Contact Info) Description 10/27/2012 Documentation [facility] [place] [address] [place], [place] [phone] Family Medicine, Physician [address] [place], [place] [address] Social History Tobacco Use Types Packs/Day Years [...] on filedocumented in this encounter Care Teams Leather Products Supervisor Relationship Specialty Start Date End Date Arleth Noel NP PCP - General 05/15/17 documented as of this encounter
--- OUTSIDE RECORDS SUMMARY | 2025-08-12 01:28 | XMS_ITS | Encounter Summary ---
Author Organization [facility] Address [address] [place] [address] Phone Care Team Providers Care Shuttle Buggy Operator Name Role Phone Arleth Noel NP Primary Care Provider Encounter Details Date Type Department Care Team (Late st Contact Info) Description 02/11/2012 Documentation [facility] Family Medicine [address] [place], [place] [phone] Family Medicine, Physician [address] [place], [place] [address] Social History Tobacco Use Types Packs/Day Years [...] on filedocumented in this encounter Care Teams Shuttle Buggy Operator Relationship Specialty Start Date End Date Arleth Noel NP PCP - General 05/15/17 documented as of this encounter
--- OUTSIDE RECORDS SUMMARY | 2025-08-12 01:28 | XMS_ITS | Encounter Summary ---
Author Organization [facility] Address [address] [place] [address] Phone Care Team Providers Care Clerk Operator Name Role Phone Arleth Noel NP Primary Care Provider [phone] Encounter Details Date Type Department Care Team (Late st Contact Info) Description 02/03/2012 Documentation [facility] [place] [address] [place], [place] [phone] Family Medicine, Physician [address] [place], [place] [address] Social History Tobacco Use Types Packs/Day Years [...] on filedocumented in this encounter Care Teams Clerk Operator Relationship Specialty Start Date End Date Arleth Noel NP PCP - General 05/15/17 documented as of this encounter
--- OUTSIDE RECORDS SUMMARY | 2025-08-12 01:28 | XMS_ITS | Data Portability ---
Author Organization [facility], [facility] [facility] [address] Address [address] [place] [address] Assessment No assessment recorded. Plan of Treatment Reminders Order Date Submit Date Provider Last Modified By Organization Details Last Modified Time Details Appointments None recorded. Lab None recorded. Referral None recorded. Procedures None recorded. Surgeries None recorded. Imaging XR, knee, 3 view 2022 023 [facility], [address] [place] [address], [address], 3 20:38:26 Medication Orders naproxen 500 mg tablet 2022 023 [id number], [address] [place], [address], 3 17:42:12 Patient TargetsNo targets recorded. Patient Instructions Encounter Date Encounter Id Patient Instructions Last Modified By Organization Details Last Modified Time 06/29/2023 [id number] learning about rice (rest, ice, compression, and [...] and lateral joint lines were nontender. Patella g rind-test with NO crepitus. Valgus and Varus testing [...] 3 view No observ ation record ed. [email or web address] [facility] [address] [place], [address], 06/30/2023 12:42:11 Result Notes None recorded. Problems Name Problem SNOMED Code Status Onset Date Resolution Date Notes Provider Name and Address Organization Details Recorded Time Anxiety 18842067 Active MAYA MINEO null, PA - [facility] 17:32:28 Hypothermia 984459926 Active MAYA MINEO null, PA - [facility] 17:32:40 Asthma 835345327 Active MAYA MINEO null, PA - [facility] 3 17:32:48 Problem Notes None recorded. Medical Equipment None Reported. [...] Heart rate Respiratory rate Body temperature Systolic And Diastolic Provider Name and Address Organization Details Last Updated DateTime 3 162.56 cm 31.6 kg/m2 63888 g 98 % 98 % 77 /min 18 /min 98.3 [degF] 142/84 mm[Hg] MAYA BROOKS PA - [facility] 3 18:03:22 Social History Question Answer Notes LastModified by Organizat ion Details LastModified Time Tobacco Smoking Status Never Smoker YU Aquino - [facility] 06/29/2023 17:33:58 Which Illicit Or Recreational Drugs Have You Used? Marijuana Information not available 06/29/2023 Sex: Unknown Functional Status Question Answer Note LastModified by Organizat ion Details LastModified Time Do you use any illicit or recreational drugs? Yes Information not available 06/29/2023 Do you or have you ever used any other forms of tobacco or nicotine? No Information not available 06/29/2023 What is your level of alcohol consumption? Occasional Information not available 06/29/2023 Mental Status None recorded. Family History Nothing Reported. Medical History No medical history recorded. Gynecological History Statement/Question Response Date of LMP 06/22/2023 Is there any chance of ? No Obstetrics History GPAL:G 0 P 0 0 0 0 Past Encounters Encounter ID Performer Location Encounter Start Date Encounter Closed Date Diagnosis/Indication Diagnosis SNOMED-CT Code Diagnosis ICD10 Code Diagnosis IMO Codes Diagnosis Note [id number] [facility] [address] [address] 06/17/2022 09:03:12 06/17/2022 09:28:19 [id number] [facility] [address] [facility] [address] [id number] 06/27/2021 10:24:48 06/27/2021 13:20:59 [id number] [place] [address] [place] [address] 06/29/2023 16:11:23 06/29/2023 18:15:24 Pain of left knee joint [id number] 52880 M25.562 Health Concerns Section Related Observation LastModified by Organization Detai ls LastModified Time None Recorded Concern Status LastModified by Organization Details LastModified Time None Recorded Advance Directives Directive None Recorded Payers Insurance Date Sequence Insurance Name Policy Number Policy Delarosa Covered Member ID Delarosa Member ID Guarantor Name 06/29/2023 1 [facility] - [facility] (MEDICAID REPLACEMENT - HMO) LEA Cannon [id number] Macie Cannon Notes Date Note Type Note Provider Name and Address Organization Details Recorded Time 06/29/2023 text/html KneeReported by PatientHPIFor associated symptoms, patient reportsno weakness,no numbness,no tingling,no swelling,no redness,no warmth,no ecchymosis,no catching/locking,no popping/clicking,no buckling,no grinding,no instability,no radiation down leg,no drainage,no fever,no chills,no weight loss, andno change in bowel/bladder habits. Jayjay Maza NP [address] [place], [address], [place] - [facility] 06/29/2023 18:14:31 OBGyn Episode No OBEpisode recorded.
--- OUTSIDE RECORDS SUMMARY | 2025-08-12 01:28 | XMS_ITS | Encounter Summary ---
Author Organization [facility] Address [address] [place] [address] Phone Care Team Providers Care Dive Master Name Role Phone Arleth Noel NP Primary Care Provider [phone] Encounter Details Date Type Department Care Team (Late st Contact Info) Description 04/09/2012 Documentation [facility] [place] Family Medicine [address] [place], [place] [id number] Family Medicine, Physician [address] [place], [place] [address] Social History Tobacco Use Types Packs/Day Years [...] on filedocumented in this encounter Care Teams Dive Master Relationship Specialty Start Date End Date Arleth Noel NP PCP - General 05/15/17 documented as of this encounter
--- OUTSIDE RECORDS SUMMARY | 2025-08-12 01:28 | XMS_ITS | Encounter Summary ---
Author Organization [facility] Address [address] [place] [address] Phone Care Team Providers Care Mold Inspector Name Role Phone Arleth Noel NP Primary Care Provider [phone] Encounter Details Date Type Department Care Team (Late st Contact Info) Description 04/06/2012 Documentation [facility] [place] Family Medicine [address] [place], [place] [phone] Family Medicine, Physician [address] [place], [place] [address] Social History Tobacco Use Types Packs/Day Years [...] on filedocumented in this encounter Care Teams Mold Inspector Relationship Specialty Start Date End Date Arleth Noel NP PCP - General 05/15/17 documented as of this encounter
--- OUTSIDE RECORDS SUMMARY | 2025-08-12 01:28 | XMS_ITS | Encounter Summary ---
Author Organization [facility] Address [address] [place] [address] Phone Care Team Providers Care Harness Mender Name Role Phone Arleth Noel NP Primary Care Provider [phone] Encounter Details Date Type Department Care Team (Late st Contact Info) Description 10/11/2012 Documentation [facility] [place] Family Medicine [address] [place], [place] [phone] Family Medicine, Physician [address] [place], [place] [address] Social History Tobacco Use Types Packs/Day Years [...] on filedocumented in this encounter Care Teams Harness Mender Relationship Specialty Start Date End Date Arleth Noel NP PCP - General 05/15/17 documented as of this encounter
--- OUTSIDE RECORDS SUMMARY | 2025-08-12 01:28 | XMS_ITS | Encounter Summary ---
Author Organization [facility] Address [address] [place] [address] Phone Care Team Providers Care Cash Register Servicer Name Role Phone Arleth Noel NP Primary Care Provider [phone] Encounter Details Date Type Department Care Team (Late st Contact Info) Description 07/19/2012 Documentation [facility] [place] Family Medicine [address] [place], [place] [phone] Family Medicine, Physician [address] [place], [place] [address] Social History Tobacco Use Types Packs/Day Years [...] on filedocumented in this encounter Care Teams Cash Register Servicer Relationship Specialty Start Date End Date Arleth Noel NP PCP - General 05/15/17 documented as of this encounter
--- OUTSIDE RECORDS SUMMARY | 2025-08-12 01:28 | XMS_ITS | Encounter Summary ---
Author Organization [facility] Address [address] [place] [address] Phone Care Team Providers Care Stretching Machine Tender Frame Name Role Phone Arleth Noel NP Primary Care Provider [phone] Encounter Details Date Type Department Care Team (Late st Contact Info) Description 10/07/2011 Documentation [facility] [place] Medicine [address] [place], [place] [phone] Family Medicine, Physician [address] [place], [place] [address] Social History Tobacco Use Types Packs/Day Years [...] on filedocumented in this encounter Care Teams Stretching Machine Tender Frame Relationship Specialty Start Date End Date Arleth Noel NP PCP - General 05/15/17 documented as of this encounter
--- OUTSIDE RECORDS SUMMARY | 2025-08-12 01:28 | XMS_ITS | Encounter Summary ---
Author Organization [facility] Address [address] [place] [address] Phone Care Team Providers Care College Or [employer] Faculty Member Name Role Phone Arleth Noel NP Primary Care Provider [phone] Encounter Details Date Type Department Care Team (Late st Contact Info) Description 07/27/2012 Documentation [facility] [place] [address] [place], [place] [address] Family Medicine, Physician [address] [place], [place] [address] Social History Tobacco Use Types Packs/Day Years [...] on filedocumented in this encounter Care Teams College Or University Faculty Member Relationship Specialty Start Date End Date Arleth Noel NP PCP - General 05/15/17 documented as of this encounter
--- OUTSIDE RECORDS SUMMARY | 2025-08-12 01:28 | XMS_ITS | Clinical Summary ---
Author Organization [facility] Address [address] [place] [address] Phone Care Team Providers Care Curriculum And Assessment Director Name Role Phone Arleth Noel NP Primary Care Provider [phone] Immunizations Immunization Administration Dates Next Due DTaP [...] 99 11/19/2012 12:00 AM EST Temperature 36.8 C (98.2 F) 11/19/2012 12:00 AM EST Respiratory Rate - - Oxygen Saturation 99% [...] 11/08/1997, Additional history exists Influenza Vaccines (#1) 2025 09/16/20 12, 09/19/2011, 07/26/2010, Additional history exists COVID-19 Vaccine (2024- season) 2025 Hepatitis B Vaccines Completed 1993, 1993, 1993 [...] complete this topic Procedures * Due to [place] state law, this organization might not be sharing sensitive test results. Procedure Name Priority Date/Time Associated Diagnosis Comments CHLAMYDIA AND GONORRHEA, AMPLIFIED Routine 09/17/2012 12:35 PM EST from Last 3 Months or Most Recently Relevant to Health Maintenance Results * Due to [place] state law, this organization might not be sharing sensitive test results. * Chlamydia and Gonorrhoea, Amplified (09/17/2012 12:35 PM EST) URINE GC AMP PROBE NEGATIVE [facility] Comment: NO NEISSERIA GONORRHOEAE RNA DETECTED IN THIS PATIENT'S SAMPLE. (REFERENCE RANGE/NORMAL VALUE: NOT DETECTED) NOTE: THIS TEST USES TECHNICAL TRANSLATOR MEDIATED AMPLIFICATION METHOD TO DETECT rRNA FROM [...] OTHER AGENTS. URINE CHLAMYDIA AMP PROBE NEGATIVE [facility] Comment: NO CHLAMYDIA TRACHOMATIS RNA DETECTED IN THIS PATIENT'S SAMPLE. (REFERENCE RANGE/NORMAL VALUE: NOT DETECTED) 09/17/2012 12:3 5 PM EST Narrative [facility] - 09/17/2012 12:35 PM EST URINE CHLAMYDIA GC AMP PROBE us Marisa Kaur DO LAB MICROBIOLOGY - GENERAL ORDER MARILYN Final Result [facility] [address] [place] [address], [place] from Last 3 Months or Most Recently Relevant to Health Maintenance Care Teams Curriculum And Assessment Director Relationship Specialty Start Date End Date Arleth Noel NP PCP - General 05/15/17
--- OUTSIDE RECORDS SUMMARY | 2025-08-12 01:28 | XMS_ITS | Encounter Summary ---
Author Organization [facility] Address [address] [place] [address] Phone Care Team Providers Care Kaiawhina Kohanga Reo Name Role Phone Arleth Noel NP Primary Care Provider [phone] Encounter Details Date Type Department Care Team (Late st Contact Info) Description 11/15/2010 Documentation [facility] [place] Family Medicine [address] [place], [place] [phone] Family Medicine, Physician [address] [place], [place] [address] Social History Tobacco Use Types Packs/Day Years [...] on filedocumented in this encounter Care Teams Kaiawhina Kohanga Reo Relationship Specialty Start Date End Date Arleth Noel NP PCP - General 05/15/17 documented as of this encounter
--- OUTSIDE RECORDS SUMMARY | 2025-08-12 01:28 | XMS_ITS | Encounter Summary ---
Author Organization [facility] Address [address] [place] [address] Phone Care Team Providers Care Coppersmith Helper Name Role Phone Arleth Noel NP Primary Care Provider [phone] Encounter Details Date Type Department Care Team (Late st Contact Info) Description 11/03/2011 Documentation [facility] [facility] [place] [address] [place], [place] [phone] Family Medicine, Physician [address] [place], [place] [address] Social History Tobacco Use Types Packs/Day Years [...] on filedocumented in this encounter Care Teams Coppersmith Helper Relationship Specialty Start Date End Date Arleth Noel NP PCP - General 05/15/17 documented as of this encounter
[2025-08-12] MEDS: iohexoL 350 MG/ML 100 ML INFUS..BTL IV (02:13)
[2025-08-12 03:21] VITALS: BP 113/66; PULSE 78; RESP 18; O2SAT 99
[2025-08-12 03:43] VITALS: BP 113/66; PULSE 78; RESP 18; TEMP 36.5; O2SAT 99
== END 2025-08-12 03:44 | disposition home or self-care (01) ==
PROVIDERS: Physician Assistant; Emergency Provider Emergency Medicine
DX: J02.0 Streptococcal pharyngitis (principal); J18.9 Pneumonia, unspecified organism
CPT/HCPCS: 36415; 70491; 80053; 84702; 85025; 96365; 96375; 99284; 99285; J0131; J1100; J1885; Q9967

== ENCOUNTER → 2025-08-12 00:33 | Outpatient (BNV) | payer OTHER, SELFPAY | PROVIDERS: Emergency Provider Emergency Medicine; Visit Provider Student in an Organized Health Care Education/Training Program | DX: J35.1 Hypertrophy of tonsils (principal); R91.8 Other nonspecific abnormal finding of lung field | CPT/HCPCS: 70491 ==